=== PATIENT | male | born 1970 | race Caucasian/White ===

== ENCOUNTER 2018-01-02 05:42 | Observation (INO) | payer OTHER ==
[2018-01-02 06:30] LABS: ABS Basophils 0.1 10^3/ul (0-0.2); ABS Eosinophils 0 10^3/ul (0-0.6); ABS Lymphocytes 1.1 10^3/ul (1.0-4.8); ABS Neutrophils 15.2 10^3/ul (1.5-7.7); ABS Nucleated RBC 0 10^3/ul; Eosinophil % 0.1 % (0-6); Hematocrit 48 % (42-52); Hemoglobin 16.6 g/dl (14.0-18.0); Lymphocyte % 6.5 % (25-47); Mean Corpuscular HGB Conc 35 g/dl (31-36); Mean Corpuscular Hemoglobin 30 pg (27-31); Mean Corpuscular Volume 87 fL (80-94); Mean Platelet Volume 7.9 um3 (7.4-10.4); Nucleated Red Blood Cells % 0.1; Platelet Count 337 10^3/ul (150-450); Red Blood Count 5.48 10^6/ul (4.0-5.4); Red Cell Distribution Width 14 % (10.5-15); White Blood Count 17.4 10^3/ul (3.5-10.8)
[2018-01-02 06:45] LABS: EGFR Non-African American 85.3 (>60)
[2018-01-02] MEDS ORDERED: NS 0.9% 1000 ML* 1,000 ML IV ONE (06:47)
[2018-01-02] MEDS ORDERED: Ondansetron INJ* 2 MG/ML VIAL IV ONE (06:48)
[2018-01-02] MEDS ORDERED: Morphine VIAL* 4 MG/ML VIAL (1 ml vial) IV ONE (06:48)
[2018-01-02] MEDS: NS 0.9% 1000 ML* 2,000 ML IV ONE ×2 (06:54→08:59)
--- NOTE | 2018-01-02 07:00 | ED ---
Abdominal Pain/Male - HPI Summary HPI Summary: Patient presents with right side abdominal pain which started yesterday as a "stitch". This progressed to a more significant pain into the evening and through the night which brought him here today. Denies nausea, vomiting, diarrhea, fever, chills, bloating. Admits he's been urinating more than usual however denies dysuria, urgency, flank pain. No known history of urinary tract infection or stones. Had his appendix out in October and has had no digestive issues since. He does still have his appendix. Denies trauma to the area. Has not tried anything for pain prior to arrival. She has18 Last meal 1800 last night and 4oz coke on way here. Sleep apnea- wears CPAP No dental work S/p cholecystectomy as of 10/2107 at [facility] - no complications - History of Current Complaint Chief Complaint: EDAbdPain Stated Complaint: ABD PAIN Time Seen by Provider: 01/02/18 06:12 Hx Obtained From: Patient, Family/Family Consultant - Pain Intensity: 10 - Allergies/Home Medications Allergies/Adverse Reactions: Allergies Allergy/AdvReac Type Severity Reaction Status Date / Time No Known Allergies Allergy Verified 08/28/12 06:58 Home Medications: Home Medications Cholecalciferol TAB* [Vitamin D TAB*] 5,000 unit PO DAILY 01/02/18 [History Confirmed 01/02/18] Cyanocobalamin TAB* [Vitamin B12 TAB*] 500 mcg PO DAILY 01/02/18 [History Confirmed 01/02/18] Hydrochlorothiazide TAB* [Hydrodiuril TAB*] 25 mg PO DAILY 01/02/18 [History Confirmed 01/02/18] PMH/Surg Hx/FS Hx/Imm Hx Previously Healthy: Yes Endocrine/Hematology History: Reports: Hx Unexplained Bleeding - hemorrhagic stroke Denies: Hx Anticoagulant Therapy, Hx Diabetes Cardiovascular History: Reports: Hx Hypertension - controlled on meds Denies: Hx Aneurysm, Hx Congestive Heart Failure, Hx Pacemaker/ICD GI History: Reports: Hx Gall Bladder Disease - s/p cholecystectomy Denies: Hx Cirrhosis, Hx Crohn's Disease, Hx Diverticulosis, Hx Gastrointestinal Bleed, Hx Hiatal Hernia, Hx Irritable Bowel, Hx Obstructive Bowel, Hx Ulcer History: Denies: Hx Benign Prostatic Hyperplasia, Hx Kidney Infection, Hx Kidney Stones, Hx Renal Disease Musculoskeletal History: Reports: Hx Back Problems - 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, Hx Orthopedic Injury Sensory History: Denies: Hx Hearing Aid Neurological History: Reports: Hx CVA - hemorrhagic stroke Denies: Hx Dementia, Hx Developmental Delay Psychiatric History: Denies: Hx Panic Disorder - Surgical History Surgery Procedure, Year, and Place: TONSILS, TOE NAIL REMOVED Infectious Disease History: No Infectious Disease History: Denies: Hx Clostridium Difficile, Hx Hepatitis, Hx Human Immunodeficiency Virus (HIV), Hx Shingles, Hx Tuberculosis, Traveled Outside the [place] in Last 30 Days - Family History Known Family History: Positive: None - Social History Lives: With Family Alcohol Use: None Hx Substance Use: No Substance Use Type: Reports: None Hx Tobacco Use: No Smoking Status (MU): Never Smoked Tobacco Review of Systems Constitutional: Negative Eyes: Negative ENT: Negative Cardiovascular: Negative Respiratory: Negative Positive: Abdominal Pain. Negative: Vomiting, Diarrhea, Nausea Positive: frequency. Negative: burning, dysuria, discharge, flank pain, hematuria, incontinence, pain, urgency Musculoskeletal: Negative Skin: Negative Neurological: Negative Psychological: Normal All Other Systems Reviewed And Are Negative: Yes Physical Exam Triage Information Reviewed: Yes Vital Signs On Initial Exam: Initial Vitals Temp Pulse Resp BP Pulse Ox 98.2 F 91 18 146/98 95 01/02/18 05:44 01/02/18 05:44 01/02/18 05:44 01/02/18 05:44 01/02/18 05:44 Vital Signs Reviewed: Yes Appearance: Positive: Pain Distress, Obese Skin: Positive: Warm - mild sweating, Skin Color Reflects Adequate Perfusion Head/Face: Positive: Normal Head/Face Inspection Eyes: Positive: Normal, EOMI, Conjunctiva Clear - anicteric sclera ENT: Positive: Normal ENT inspection, Hearing grossly normal, Pharynx normal - mucosa moist Respiratory/Lung Sounds: Positive: Clear to Auscultation, Breath Sounds Present. Negative: Rales, Rhonchi, Wheezes Cardiovascular: Positive: Normal, RRR, Pulses are Symmetrical in both Upper and Lower Extremities, S1, S2. Negative: Murmur, Rub, Leg Edema Left, Leg Edema Right Abdomen Description: Positive: Distended, Other: - every area of palpation over ab refers pain to Rt side - RLQ is most TTP; (+) Psoas; unable to assess organs d/t body habitus. Negative: CVA Tenderness (R), CVA Tenderness (L) Bowel Sounds: Positive: Present Musculoskeletal: Positive: Normal, Strength/ROM Intact Neurological: Positive: Normal, Sensory/Motor Intact, Alert, Oriented to Person Place, Time, CN Intact II-III Psychiatric: Positive: Normal Diagnostics - Vital Signs Vital Signs Temp Pulse Resp BP Pulse Ox 01/02/18 06:21 26 01/02/18 05:44 98.2 F 91 18 146/98 95 - Laboratory Lab Results: Lab Results 01/02/18 01/02/18 01/02/18 Range/Units 06:08 06:08 06:08 WBC 17.4 H (3.5-10.8) 10^3/ul RBC 5.48 H (4.0-5.4) 10^6/ul Hgb 16.6 (14.0-18.0) g/dl Hct 48 (42-52) % MCV 87 (80-94) fL MCH 30 (27-31) pg MCHC 35 (31-36) g/dl RDW 14 (10.5-15) % Plt Count 337 (150-450) 10^3/ul MPV 7.9 (7.4-10.4) um3 Neut % (Auto) 87.2 H (38-83) % Lymph % (Auto) 6.5 L (25-47) % Granite % (Auto) 5.7 (0-7) % Eos % (Auto) 0.1 (0-6) % Baso % (Auto) 0.5 (0-2) % Absolute Neuts (auto) 15.2 H (1.5-7.7) 10^3/ul Absolute Lymphs (auto) 1.1 (1.0-4.8) 10^3/ul Absolute Monos (auto) 1.0 H (0-0.8) 10^3/ul Absolute Eos (auto) 0 (0-0.6) 10^3/ul Absolute Basos (auto) 0.1 (0-0.2) 10^3/ul Absolute Nucleated RBC 0 10^3/ul Nucleated RBC % 0.1 Sodium 138 L (139-145) mmol/L Potassium 3.8 (3.5-5.0) mmol/L Chloride 101 (101-111) mmol/L Carbon Dioxide 25 (22-32) mmol/L Anion Gap 12 H (2-11) mmol/L BUN 12 (6-24) mg/dL Creatinine 0.94 (0.67-1.17) mg/dL Est GFR ( Amer) 109.7 (>60) Est GFR (Non-Af Amer) 85.3 (>60) BUN/Creatinine Ratio 12.8 (8-20) Glucose 166 H (70-100) mg/dL Lactic Acid 3.0 H* (0.5-2.0) mmol/L Calcium 10.3 (8.6-10.3) mg/dL Total Bilirubin 1.70 H (0.2-1.0) mg/dL AST 34 (13-39) U/L ALT 70 H (7-52) U/L Alkaline Phosphatase 70 (34-104) U/L C-Reactive Protein 41.43 H (< 5.00) mg/L Total Protein 8.3 (6.4-8.9) g/dL Albumin 5.0 (3.2-5.2) g/dL Globulin 3.3 (2-4) g/dL Albumin/Globulin Ratio 1.5 (1-3) Lipase 12 (11.0-82.0) U/L Result Diagrams: 01/02/18 06:08 01/02/18 06:08 Lab Statement: Any lab studies that have been ordered have been reviewed, and results considered in the medical decision making process. Re-Evaluation - Re-Evaluation First Eval Change: Unchanged - brief improvement w/ 4mg morphine - will try dilaudid Second Eval Change: Improved - pt's pain improved w/ dilaudid - continues to have no nausea Abdominal Pain Fem Course/Dx - Course Course Of Treatment: Pt presents with right sided abdominal pain which started as a "stitch yesterday. This pain has progressed until he could no longer take it today. Denies nausea vomiting diarrhea fevers or chills. His white blood cells are elevated at 17, his lactic acid level is elevated at 3, his CRP is elevated. CT scan reveals acute appendicitis without signs of abscess. Patient received 2 rounds of IV pain medication as the first one was short lived - better control with a second. He is receiving 2 L of IV fluids, zosyn and oxygen was placed secondary to his sleep apnea with narcotics on board. Patient aware of diagnosis and plan. Dr. Villagomez aware of case and on his way to see pt - will admit for surgery. Last meal 1800 last night and 4oz coke on way here. Sleep apnea- wears CPAP. No dental work. S/p cholecystectomy as of 2107 - no complications - Diagnoses Provider Diagnoses: Appendicitis Discharge - Sign-Out/Discharge Documenting (check all that apply): Discharge/Admit/Transfer - Discharge Plan Condition: Stable Disposition: ADMITTED TO [facility] - Billing Disposition and Condition Condition: STABLE Disposition: [facility]
[2018-01-02] MEDS ORDERED: HYDROmorphone INJ* 2 MG/ML CARPUJECT SYRINGE IV SLOW PU ONE (07:27)
--- NOTE | 2018-01-02 08:03 | RAD ---
CLINICAL HISTORY: Lower right abdominal pain COMPARISON: None TECHNIQUE: Multiple contiguous axial CT scans were obtained of the abdomen and pelvis, without intravenous contrast enhancement. Coronal and sagittal multiplanar reformations are submitted for review. Oral contrast was not administered. FINDINGS: LUNG BASES: The lung bases are clear. LIVER: The liver is diffusely low in attenuation compared to the spleen. There are no focal hepatic parenchymal masses. The liver measures 19.1 cm in long axis. BILE DUCTS: There is no intrahepatic or extrahepatic biliary dilatation. GALLBLADDER: The gallbladder is not visualized. Surgical clips are noted in the gallbladder fossa. PANCREAS: There is focal fatty atrophy of the head of the pancreas. SPLEEN: Normal in size and appearance. UPPER GI TRACT: Evaluation of the gastrointestinal tract is limited by incomplete gastric distention. The upper GI tract is unremarkable. SMALL BOWEL AND MESENTERY: The small bowel is normal in contour, course, and caliber. There is no obstruction or dilatation. COLON: The colon is normal in contour, course, caliber. There is no pericolonic inflammatory change. There is a tubular, vermiform, hollow viscus that is blind-ending and originates from the cecum consistent with the appendix. This is dilated with stranding of the periappendiceal fat. This measures 1.5 cm in diameter. There is an appendicolith at the base of the appendix. There is no loculated fluid collection to suggest abscess. ADRENALS: Normal bilaterally. KIDNEYS: There is a simple cyst of the midpole of the left kidney. There is no appreciable hydronephrosis or nephrolithiasis. BLADDER: The bladder is smooth in contour. PELVIC ORGANS: The prostate gland is normal. The seminal vesicles are symmetric. AORTA: The aorta is normal. IVC: Unremarkable LYMPH NODES: There is no lymphadenopathy by size criteria. ABDOMINAL WALL: There is a fat-containing inguinal hernia on the left. There is a small fat-containing umbilical hernia. BONES AND SOFT TISSUES: Unremarkable OTHER: None IMPRESSION: 1. ACUTE APPENDICITIS. NO LOCULATED FLUID COLLECTION TO SUGGEST ABSCESS. 2. MILD HEPATOMEGALY WITH FATTY INFILTRATION OF THE LIVER.
[2018-01-02] MEDS ORDERED: Piperacillin/Tazobac ADVAN(*) 3.375 GM in NS 0.9% 100 ML* 100 ML IVPB ONE (08:31)
[2018-01-02] MEDS ORDERED: HYDROmorphone INJ* 2 MG/ML CARPUJECT SYRINGE IV SLOW PU PRN (09:57)
[2018-01-02] MEDS ORDERED: Ondansetron INJ* 2 MG/ML VIAL IV PRN (09:57)
[2018-01-02] MEDS ORDERED: ceFOXitin 2 GM IVPREMIX* 2 GM/50 ML BAG IVPB ONE (09:58)
[2018-01-02] MEDS ORDERED: NS 0.9% 1000 ML* 1,000 ML IV SCH (10:15)
[2018-01-02] MEDS ORDERED: ceFOXitin(*) 2 GM in NS 0.9% 100 ML* 100 ML IVPB ONE (11:00)
--- NOTE | 2018-01-02 13:14 | HP ---
AMENDED REPORT NOW INCLUDES COSIGNER DESIGNATION - ESIGNED BEFORE ADJUSTMENT CC: Cari Og NP, [facility] * PRIORITY ADMISSION HISTORY AND PHYSICAL EXAMINATION: DATE OF ADMISSION: 01/02/18. LOCATION: This patient was admitted through the [facility] and was seen in room 348. This is a priority dictation as the patient will be going to the operating room this afternoon. ATTENDING PROVIDER: Dr. Abhinav Villagomez.* (DICTATED BY ARIANNE BOTELLO NP) CHIEF COMPLAINT: Worsening abdominal pain. HISTORY OF PRESENT ILLNESS: The patient is a 47-year-old male, who had the onset of right-sided abdominal pain around 5 p.m. yesterday, 01/01/18, and he described it as a "stitch." He was unable to sleep and the pain worsened overnight and he awakened his at 5 a.m. to be brought to the emergency department for assessment. He denies any nausea, vomiting, diarrhea, fever, or chills; he had a bowel movement that was formed yesterday, there was no blood. He last ate around supper time yesterday and drank 4 ounces of Coca-Cola at 5 o' clock this morning. In the emergency room, his white blood cell count was elevated at 17.4 with the left shift; lactic acid elevated at 3.0, and CRP elevated at 41.4. CAT scan of the abdomen and pelvis was done, which revealed acute appendicitis with an appendicolith at the base of appendix and no evidence of abscess. At this time, the patient rates his pain at 5 or 6. PAST MEDICAL HISTORY: He is followed at the [facility] by Cari Og NP, and is treated for hypertension; obstructive sleep apnea and he does use CPAP at home; fatty liver; obesity; he reports that he had a massive hemorrhagic stroke in August 2012 and was treated by Dr. Weaver with a adrrel hole with insertion of a left ventricular drain for a right basal ganglia hemorrhage, he was intubated and trach'd at that time; he has chronic neck and back pain and states that he broke his neck in 1992 and has pain from C1 to T1. PAST SURGICAL HISTORY: Laparoscopic cholecystectomy, October 2017; darrel hole with insertion of left ventricular drain for cerebral hemorrhage, 2011, by Dr. Weaver; tracheostomy by Dr. Sharma, 2012; tonsillectomy, age 5. CURRENT MEDICATIONS: 1. HydroDIURIL 25 mg one-half tablet daily in the morning. 2. Metoprolol 25 mg p.o. b.i.d. 3. Amlodipine 10 mg p.o. daily in the evening. 4. Losartan 100 mg p.o. daily in the morning. 5. Clonidine 0.2 mg patch, which he changes weekly on Friday. 6. Vitamin D supplement. 7. Vitamin B12 supplement. He did not take any of his medications this morning. ALLERGIES: No known drug allergies. BENGAY caused skin callaway. FAMILY HISTORY: No known anesthesia complications, bleeding tendencies, or clotting disorders. Father age 69 with heart attack, mother at age 60 with accidental overdose after hip surgery. SOCIAL HISTORY: He is and his accompanies him. He has been on disability since his stroke in 2011; he is a former smoker who quit, June 2011, after smoking a pack of cigarettes a day for 26 years. He rarely drinks alcohol and denies the use of other substances. REVIEW OF SYSTEMS: Constitutional: No fevers or chills. No excessive fatigue. Endocrine: No diabetes or thyroid disease. Respiratory: Obstructive sleep apnea and uses CPAP at home. No chronic cough. Cardiovascular: He is treated for hypertension and has a history of hemorrhagic stroke in 2011. No chest pain or palpitations. Gastrointestinal: No nausea, vomiting, diarrhea, or constipation; he does have history of a fatty liver. Genitourinary: No dysuria. No kidney stones. Musculoskeletal: Chronic neck and back pain with history of broken neck in 1992. Neurologic: Status post cerebral hemorrhage, 2011. No history of seizure activity. No numbness. No focal deficits. He does report some difficulties with short-term memory and if he is extremely tired, he notices that his left leg is weaker. General: Denies any previous anesthesia complications. Denies any history of deep vein thrombosis or pulmonary embolism and has never received a blood transfusion. PHYSICAL EXAMINATION GENERAL SURVEY: The patient is a 47-year-old male, well developed, obese, in no acute distress. VITAL SIGNS: Height 5 feet 11 inches, weight 280 pounds, body mass index approximately 38. Blood pressure 138/84, pulse 76 and regular, respirator rate 20, O2 saturation on 2 L is 96%, temperature 97.9 tympanic. HEENT: Benign. NECK: Supple. No cervical lymphadenopathy. LUNGS: Breath sounds bilaterally clear and equal. HEART: Regular rate and rhythm. No murmurs or rubs appreciated. ABDOMEN: Quiet, large, soft, exquisitely tender in the right lower quadrant. No obvious guarding or rebound tenderness. No obvious masses or organomegaly, but exam is limited by body habitus and by the patient's discomfort. GENITALIA EXAM: Deferred. RECTAL EXAM: Deferred. EXTREMITIES: Full range of motion. Strong hand picture hanger. No edema or skin ulcerations. NEUROLOGIC: Alert and oriented x3. Steady gait. SKIN: Warm, dry, intact. IMPRESSION: Acute appendicitis. PLAN: Laparoscopic appendectomy by Dr. Villagomez this afternoon; NPO; IV fluid resuscitation. He received the dose of IV Zosyn in the emergency department. With his history of obstructive sleep apnea, he will be maintained on 2 L of oxygen and will receive pain medication as needed. TIME SPENT: Sixty minutes with greater than 50% in [id number] history taking and coordination of care. ARIANNE BOTELLO NP [id number]/CPS #: [id number] SOTO
[2018-01-02] MEDS ORDERED: Bupivacaine 0.25% SDV* 30 ML ONE (13:28)
[2018-01-02] MEDS ORDERED: fentaNYL* 50 MCG/ML 2 ML VIAL (100 MCG VIAL) ONE ×2 (13:45)
[2018-01-02] MEDS ORDERED: Midazolam* 1 MG/ML 2 ML VIAL (2 MG) ONE (13:45)
[2018-01-02] MEDS ORDERED: Dexamethasone IV* 4 MG/ML 1 ML (4 MG) ONE (14:08)
[2018-01-02] MEDS ORDERED: Succinylcholine* 20 MG/ML 10 ML VIAL ONE (14:08)
[2018-01-02] MEDS ORDERED: Lidocaine 2% PF * 5 ML VIAL ONE (14:08)
[2018-01-02] MEDS ORDERED: Ondansetron INJ* 2 MG/ML VIAL ONE (14:08)
[2018-01-02] MEDS ORDERED: Propofol* 10 MG/ML 20 ML BTL IV PUSH ONE (14:08)
[2018-01-02] MEDS ORDERED: Phenylephrine IV* 40 MCG/ML 10 ML SYRINGE ONE (14:08)
[2018-01-02] MEDS ORDERED: Rocuronium* 10 MG/ML VIAL ONE (14:15)
[2018-01-02] MEDS ORDERED: oxyCODONE/Acetamin 5/325 MG* TAB PO PRN (15:09)
[2018-01-02] MEDS ORDERED: Naloxone* 0.4 MG/ML 1 ML VIAL IV PRN (15:18)
[2018-01-02] MEDS ORDERED: hydrALAZINE IV* 20 MG/ML VIAL ONE (15:32)
[2018-01-02 16:49] VITALS: BP 130/86
--- NOTE | 2018-01-02 22:20 | OP ---
CC: Abhinav Villagomez MD; [facility]. OPERATIVE REPORT: DATE OF OPERATION: 01/02/18 DATE OF : 66 SURGEON: Abhinav Villagomez MD CAREER DEVELOPMENT ASSOCIATE: None. ANESTHESIOLOGIST: Dr. He. ANESTHESIA: General anesthetic, local infiltration. PRE-OP DIAGNOSIS: Appendicitis. POST-OP DIAGNOSIS: Appendicitis. OPERATIVE PROCEDURE: Laparoscopic appendectomy. COMPLICATIONS: No complications. DRAINS: No drains. PATHOLOGIC SPECIMEN: Appendix. COUNTS: Sponge and instruments count correct. ESTIMATED BLOOD LOSS: 50 mL. DESCRIPTION OF PROCEDURE: The patient was supine on the operating table. After adequate general ane sthetic, compression stockings, Britni Hugger warmer, and intravenous antibiotics, the abdomen was clip ped and prepped with antiseptic and draped in a sterile fashion. Local infiltrative anesthesia was a dministered. The previous umbilical incision was re-entered. Dissection carried down to the fascia, which was entered and a blunt port cannula was placed. Insufflation was carried out with carbon el xide. Additional cannulae, 5-mm left lower quadrant and left mid abdomen were placed through small s tab wounds under direct vision. The appendix was retrocecal and suppurative and little bit stuck in the retroperitoneum. It was painstakingly dissected up. The base of the appendix was divided using an EndoGIA stapler 60-mm robert cartridge and the mesoappendix divided using a lucero cartridge. The appe ndix ruptured during dissection and was all retrieved and placed in the retrieval bag. There was no spillage of any fecalith, the appendix was removed through the umbilical site without difficulty. Th e operative field was well irrigated with 2 L of warm saline solution. Free fluid was suctioned down . Hemostasis was confirmed, the cannulae were removed. The pneumoperitoneum was allowed to escape. The umbilical fascia was closed with 0 Vicryl and skin with 5-0 Vicryl in all cases followed by Ster i-Strips. He tolerated the procedure well, was awakened, extubated, and brought to Recovery in good condition. [id number]/[facility] #: [id number]
--- NOTE | 2018-01-03 03:24 | DS ---
CC: Dr. Villagomez; [facility] DISCHARGE SUMMARY: DATE OF ADMISSION: 01/02/18 DATE OF DISCHARGE: 01/02/18 DATE OF OPERATION/HOSPITALIZATION: 01/02/18 PRINCIPAL ADMITTING DIAGNOSIS: Appendicitis. OPERATIVE PROCEDURE ON THIS ADMISSION: Laparoscopic appendectomy. COMPLICATIONS: None. HOSPITAL COURSE: The patient came to the hospital in the wee hours on the morning of 01/02, was admi tted and taken to the operating room later that day for laparoscopic appendectomy. He had an uncompl icated postoperative course and was discharged home later that evening. He was discharged home with instructions and prescriptions and will follow up in the office in approximately 1 week. [id number]/[facility] #: [id number]
== END 2018-01-02 19:50 | disposition home or self-care (01) ==
LOC: ED 05:42 → OR 08:34 → SSU 09:55
PROVIDERS: ADMIT Surgery; ATTEND Surgery
PROC: 0DTJ4ZZ Resection of Appendix, Percutaneous Endoscopic Approach (ICD-10-PCS; principal; 2018-01-02 14:15)
DX: K35.80 Unspecified acute appendicitis (principal); I10 Essential (primary) hypertension; G47.33 Obstructive sleep apnea (adult) (pediatric); E66.9 Obesity, unspecified; K76.0 Fatty (change of) liver, not elsewhere classified; Z79.899 Other long term (current) drug therapy; Z87.891 Personal history of nicotine dependence; I51.7 Cardiomegaly; R94.31 Abnormal electrocardiogram [ECG] [EKG]
CPT/HCPCS: 36415; 74176; 80053; 83605; 83690; 85025; 86140; 87040; 93005; 96374; 96375; 96376; 99284; G0378; J0330; J0360; J0694; J1100; J1170; J2250; J2270; J2405; J2543; J2704; J3010

== ENCOUNTER 2019-04-04 12:43 | Observation (INO) | payer OTHER ==
[2019-04-04 13:26] LABS: ABS Basophils 0.1 10^3/ul (0-0.2); ABS Lymphocytes 2.4 10^3/ul (1.0-4.8); ABS Monocytes 0.7 10^3/ul (0-0.8); ABS Neutrophils 1.4 10^3/ul (1.5-7.7); Eosinophil % 0.6 %; Hematocrit 38 % (42-52); Hemoglobin 13.3 g/dL (14.0-18.0); Lymphocyte % 52.3 %; Mean Corpuscular HGB Conc 35 g/dL (31-36); Mean Corpuscular Hemoglobin 32 pg (27-31); Mean Corpuscular Volume 90 fL (80-94); Nucleated Red Blood Cells % 0.2; Red Blood Count 4.17 10^6 /uL (4.18-5.48); Red Cell Distribution Width 15 % (10-15); White Blood Count 4.6 10^3/uL (3.5-10.8)
--- NOTE | 2019-04-04 13:30 | ED ---
HPI Chest Pain - HPI Summary HPI Summary: The pt is a 48 yr old male presenting to [facility] c/o pain across the chest beginning yesterday. He states that he was sitting down when he began to feel pain in his chest that is currently radiating to his right shoulder. His pain has been constant since yesterday, and he rates its severity a 6/10. He mentions doing recent yard work, and that he has had difficulty sleeping due to the pain. He was mildly diaphoretic upon arrival. He also reports SOB but denies nausea, vomiting, fever, or edema in the lower extremities. He took antacids at home to alleviate the pain, but they did not help. He also had two ASA this morning. He has Hx of HTN, CVA, and cholecystectomy. No hx of COPD or CHF. He has not traveled recently. - History of Current Complaint Chief Complaint: EDChestPainROMI Time Seen by Provider: 04/04/19 13:11 Hx Obtained From: Patient Onset/Duration: Started Days Ago - yesterday, Still Present Timing: Constant, Lasting Days Initial Severity: Moderate Current Severity: Moderate Pain Intensity: 6 Pain Scale Used: 0-10 Numeric Chest Pain Location: Diffuse Chest Pain Radiates: Yes Chest Pain Radiates To:: Shoulder - Right shoulder Aggravating Factor(s): Nothing Alleviating Factor(s): Nothing - antacids and ASA to no relief Associated Signs and Symptoms: Positive: Chest Pain, Shortness of Breath, Fever. Negative: Nausea, Vomiting, Edema - Allergy/Home Medications Allergies/Adverse Reactions: Allergies Allergy/AdvReac Type Severity Reaction Status Date / Time No Known Allergies Allergy Verified 08/28/12 06:58 PMH/Surg Hx/FS Hx/Imm Hx Endocrine/Hematology History: Reports: Hx Unexplained Bleeding - hemorrhagic stroke Denies: Hx Anticoagulant Therapy, Hx Diabetes Cardiovascular History: Reports: Hx Hypertension - controlled on meds Denies: Hx Aneurysm, Hx Congestive Heart Failure, Hx Pacemaker/ICD GI History: Reports: Hx Gall Bladder Disease - s/p cholecystectomy Denies: Hx Cirrhosis, Hx Crohn's Disease, Hx Diverticulosis, Hx Gastrointestinal Bleed, Hx Hiatal Hernia, Hx Irritable Bowel, Hx Obstructive Bowel, Hx Ulcer History: Denies: Hx Benign Prostatic Hyperplasia, Hx Kidney Infection, Hx Kidney Stones, Hx Renal Disease Musculoskeletal History: Reports: Hx Back Problems - 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, Hx Orthopedic Injury Sensory History: Reports: Hx Contacts or Glasses - reading glasses Denies: Hx Hearing Aid Opthamlomology History: Reports: Hx Contacts or Glasses - reading glasses Neurological History: Reports: Hx CVA - hemorrhagic stroke Denies: Hx Dementia, Hx Developmental Delay Psychiatric History: Denies: Hx Panic Disorder - Surgical History Surgery Procedure, Year, and Place: TONSILS, TOE NAIL REMOVED Hx Anesthesia Reactions: No Infectious Disease History: No Infectious Disease History: Denies: Hx Clostridium Difficile, Hx Hepatitis, Hx Human Immunodeficiency Virus (HIV), Hx Shingles, Hx Tuberculosis, Traveled Outside the [place] in Last 30 Days - Family History Known Family History: Negative: Cardiac Disease, Hypertension, Diabetes - Social History Alcohol Use: Rare Hx Substance Use: No Substance Use Type: Reports: None Hx Tobacco Use: No Smoking Status (MU): Former Smoker Type: Cigarettes Amount Used/How Often: 1PPD Review of Systems Positive: Skin Diaphoresis Positive: Chest Pain - Radiates to the right shoulder. Positive: Shortness Of Breath Negative: Vomiting, Nausea Negative: Edema All Other Systems Reviewed And Are Negative: Yes Physical Exam - Summary Physical Exam Summary: Constitutional: Well-developed, Well-nourished, Alert. (-) Distressed. Obese. Skin: Warm, Dry HENT: Normocephalic; Atraumatic Eyes: Conjunctiva normal Neck: Musculoskeletal ROM normal neck. (-) JVD, (-) Stridor, (-) Nuchal rigidity Cardio: Rhythm regular, rate normal, Heart sounds normal; Intact distal pulses; Radial pulses are 2+ and symmetric. (-) Murmur Pulmonary/Chest wall: Increased bronchial breathing, (-) Respiratory distress, ( -) Wheezes, (-) Rales, Abd: Protuberant, Soft, (-) tenderness, (-) Distension, (-) Guarding, (-) Rebound Musculoskeletal: (-) Edema Lymph: (-) Cervical adenopathy Neuro: Alert, Oriented x3 Psych: Mood and affect Normal Triage Information Reviewed: Yes Vital Signs On Initial Exam: Initial Vitals Temp Pulse Resp BP Pulse Ox 98.4 F 78 20 158/87 98 04/04/19 12:46 04/04/19 12:46 04/04/19 12:46 04/04/19 12:46 04/04/19 12:46 Vital Signs Reviewed: Yes Diagnostics - Vital Signs Vital Signs Temp Pulse Resp BP Pulse Ox 04/04/19 12:46 98.4 F 78 20 158/87 98 - Laboratory Result Diagrams: 04/04/19 13:13 04/04/19 13:13 Lab Statement: Any lab studies that have been ordered have been reviewed, and results considered in the medical decision making process. - Radiology CXR Radiology Interpretation Completed By: Radiologist Summary of Radiographic Findings: Impresssions: No radiological evidence of acute cardiopulmonary disease. ED physician has reviewed this imaging report. - CT Chest/Thorax CTA CT Interpretation Completed By: Radiologist Summary of CT Findings: IMPRESSION: 1. No CT of evidence of pulmonary embolism. 2. There is a very mild degree of groundglass opacification which could be seen in the. setting of mild pulmonary edema. 3. Likely hepatic steatosis. ED Physician has reviewed this imaging report. - EKG 1246 Cardiac Rate: NL - @ 83 BPM. EKG Rhythm: Sinus Rhythm Summary of EKG Findings: Twave inversions in III. No STEMI. Re-Evaluation - Re-Evaluation First Eval Re-Evaluation Time: 16:30 Comment: Patient felt slighty better w nitro. I discussed admission with the patient and his ; they agree with this plan. Plan for tele monitoring. BNP normal Chest Pain Course/Dx - Course Course Of Treatment: ) 48-year-old male with a history of a previous hemorrhagic CVA, hypertension who presents with left-sided chest pain for 2 days. Vital signs notable for hypoxia to 94% on review of records this is not new but has not been addressed via imaging. Chest Pain DDX: The patient is well appearing, with stable vitals. Given the patient's clinical presentation, highest on differential is ACS versus PE. Will check troponin, EKG as well as CT PE. Although less likely, differential also includes the following: -- Pneumothorax: Equal breath sounds, story inconsistent since gradual onset of symptoms. CXR shows no evidence of pneumothorax. Unlikely. --Cardiac tamponade : The history and physical are not concerning for tamponade. No Pulsus Paradoxus , no tachypnea. Unlikely. --Mediastinitis or esophageal rupture: The history is not consistent, as the patient has had no recent history of significant wretching, instrumentation, or mediastinal surgeries. Unlikely. --Aortic dissection: The patient does not describe the classical tearing chest pain radiating into the back, and the CXR does not show mediastinal widening or other signs of aortic dissection. Unlikely. - Diagnoses Provider Diagnoses: Chest pain - Provider Notifications Discussed Care Of Patient With: Nadege Price - hospitalist Time Discussed With Above Provider: 16:30 Instructed by Provider To: Admit As Inpatient - Dr. Price will admit pt to [facility]. Discharge - Sign-Out/Discharge Documenting (check all that apply): Patient Departure - Admit Patient Received Moderate/Deep Sedation with Procedure: No - Discharge Plan Condition: Stable Disposition: ADMITTED TO [facility] Referrals: Cari Og [Primary Care Provider] - - Billing Disposition and Condition Condition: STABLE Disposition: Admitted to [facility] - Attestation Statements Document Initiated by Violeta: Yes Documenting Scribe: [place] Provider For Whom Violeta is Documenting (Include Credential): Dr. Jerod Carter MD Scribe Attestation: I, [place], scribed for Dr. Jerod Carter MD on 04/04/19 at 1832. Scribe Documentation Reviewed: Yes Provider Attestation: The documentation as recorded by the [place] accurately reflects the service I personally performed and the decisions made by me, Dr. Jerod Carter MD Status of Scribe Document: Viewed
[2019-04-04 13:32] LABS: INR 1.05 (0.82-1.09)
[2019-04-04 13:36] LABS: Albumin 4.7 g/dL (3.2-5.2); Albumin/Globulin Ratio 1.6 (1-3); BUN/Creatinine Ratio 16.1 (8-20); Calcium 9.7 mg/dL (8.6-10.3); EGFR African American 104.1 (>60); Potassium 3.8 mmol/L (3.5-5.0); Total Bilirubin 1.8 mg/dL (0.2-1.0); Total Protein 7.7 g/dL (6.4-8.9)
[2019-04-04] MEDS ORDERED: Iohexol 350* (CONTRAST) 500 ML MDV IV ONE (13:44)
[2019-04-04 14:07] LABS: Mean Platelet Volume 8.1 fL (7.4-10.4); Platelet Count 78 10^3/uL (150-450)
[2019-04-04] MEDS ORDERED: Nitroglycerin TAB 0.3 MG* 0.3 MG TAB SL ONE (14:26)
[2019-04-04] MEDS ORDERED: Nitroglycerin TAB 0.4 MG* 0.4 MG TAB ONE (14:57)
[2019-04-04] MEDS ORDERED: Nitroglycerin TAB 0.4 MG* 0.4 MG TAB SL ONE (14:59)
[2019-04-04] MEDS ORDERED: Lidocaine 2% VISCOUS* 15 ML UDC PO ONE (15:46)
[2019-04-04] MEDS ORDERED: Al Hydrox/Mg Hydrox/Simet LIQ* 30 ML UDC ONE (15:49)
[2019-04-04] MEDS ORDERED: Al Hydrox/Mg Hydrox/Simet LIQ* 30 ML UDC PO ONE (15:53)
[2019-04-04] MEDS ORDERED: Morphine 4 MG/ML VIAL (1 ml) 4 MG/ML VIAL IV ONE (16:21)
[2019-04-04 17:15] LABS: C Reactive Protein 71.75 mg/L (<8.01)
[2019-04-04] MEDS ORDERED: Ondansetron INJ* 2 MG/ML VIAL IV PRN (17:15)
[2019-04-04] MEDS ORDERED: Acetaminophen TAB* 325 MG PO PRN (17:15)
[2019-04-04] MEDS ORDERED: Nitroglycerin TAB 0.4 MG* 0.4 MG TAB SL PRN (17:17)
[2019-04-04] MEDS ORDERED: Enoxaparin(*) 40 MG/0.4 ML SYR SUBCUT SCH (18:00)
[2019-04-04] MEDS ORDERED: cloNIDine 0.2 MG PATCH* 0.2 MG/24 HR 7 DAY PATCH TRANSDERM SCH (18:00)
[2019-04-04] MEDS: Losartan TAB* 25 MG PO SCH (19:59)
[2019-04-04] MEDS: Metoprolol Tartrate TAB* 25 MG PO SCH (20:00)
[2019-04-04] MEDS: Morphine INJ* 2 MG/ML 1 ML SYRINGE (TWO MG - NEW SYRINGE VERSION) IV PRN ×2 (20:02→23:04)
--- NOTE | 2019-04-04 21:24 | HP ---
CC: Cari Og NP, [facility] * ADMISSION HISTORY AND PHYSICAL: DATE OF ADMISSION: 04/04/19 PRIMARY CARE PROVIDER: Cari Og NP, at the [facility]. MY ATTENDING WHILE IN THE HOSPITAL: Dr. Nadege Price.* (DICTATED BY TYLER CARNES) CHIEF COMPLAINT: Chest pain x24 hours. HISTORY OF PRESENT ILLNESS: Mr. 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 He had no recent changes in his meds, no recent sick contacts; no fevers or chills. After he was working in the yard yesterday, he went to sit down and suddenly felt pain in the left side of his chest, which he described as aching, initially did not radiate and did not change except for being worse when sitting up, worse with palpation. He did state that it at one point radiated to his right shoulder, but he does not know if this was chronic right shoulder pain that he has related to chronic neck injury. The patient has been compliant with CPAP. The patient has not missed any doses of his medications. The patient's blood pressure has not been out of control. The patient does not feel as if he pulled anything while doing yard work. The patient is usually very active walking approximately a mile and a half when he exercises and then doing work around the yard. The patient has chronic pain, which he rates as a constant 2/10 and sometimes flares up. The patient has never had a workup for secondary hypertension to his knowledge. The patient does not get short of breath with exertion. The patient does not have difficulty breathing lying flat. The patient had an endoscopy 2 years ago for dilation of esophageal stricture. He has not had any other issues with that. The patient does not have issues with reflux. The patient has never had esophageal spasms. The patient sleeps approximately 4 hours a night due to unknown causes. In the emergency department, the patient was given nitroglycerin, which improved the patient's pain a little bit. There is no change in his pain with a GI cocktail and morphine helped his pain slightly. Due to concern for chest pain in a patient with risk factors, we were asked to evaluate the patient for admission to the hospital. PAST MEDICAL HISTORY: Severe hypertension; intracranial hemorrhage, right caudate nucleus; chronic neck pain; obstructive sleep apnea; obesity; borderline hyperlipidemia; esophageal stricture; [place]. PAST SURGICAL HISTORY: Tracheostomy, vasectomy, tonsillectomy, cholecystectomy , appendectomy, ventriculostomy. MEDICATIONS: 1. Hydrochlorothiazide 12.5 mg p.o. daily. 2. Losartan 100 mg p.o. daily. 3. Clonidine 0.2 mg patch every 7 days. 4. Amlodipine 10 mg p.o. daily. 5. Metoprolol 25 mg p.o. b.i.d. 6. Voltaren gel 1% topically 3 to 4 times a day. ALLERGIES: BENGAY. FAMILY HISTORY: The patient's father had hemochromatosis and of an CA at 69. The patient's mother from an accidental overdose. The patient had an uncle who of throat cancer and an uncle who of brain cancer. SOCIAL HISTORY: The patient quit smoking in 2010 after smoking for approximately 27 years. The patient drinks occasional alcohol. The patient denies illicit drug use. The patient is retired. He is a disabled and worked as a [employer]. The patient is and has 3 children. The patient's surrogate decision maker will be his , Lily. REVIEW OF SYSTEMS: A 14-point review of systems was reviewed and is negative except as above in the HPI. 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 VITAL SIGNS: At the time of evaluation, temperature 98.4, pulse rate 73, respiratory rate 26, oxygen saturation 95% on room air, blood pressure 130/84. HEENT: Head: Normocephalic, atraumatic. Sclerae anicteric. No conjunctival injection. Nasal mucosa moist. Oral mucosa moist. No pharyngeal erythema, discharge, or exudate. NECK: Supple, nontender. No lymphadenopathy. No carotid bruits auscultated. No JVD. RESPIRATORY: Clear to auscultation bilaterally. No wheezes, rales, or rhonchi. Good air exchange bilaterally. CARDIAC: Regular rate and rhythm. No clicks, murmurs, gallops, or rubs. Pulses are 2+ in the bilateral dorsalis pedis, posterior tibialis, and radial areas. ABDOMEN: Soft, nontender, nondistended. Bowel sounds present and normoactive in all 4 quadrants. No hepatosplenomegaly. No abdominal bruits auscultated. No hepatojugular reflux. GENITOURINARY: No suprapubic or CVA tenderness. NEURO: Cranial nerves II through XII intact. No focal deficits. Alert and oriented x3. PSYCHIATRIC: Pleasant and cooperative. SKIN: Clean, dry, and intact. No rash. DIAGNOSTIC STUDIES/LAB DATA: White blood cell count 4.6, hemoglobin 13.3, hematocrit 38, platelet count 78. INR 1.05. Sodium 135, potassium 3.8, chloride 99, carbon dioxide 27, anion gap 9, BUN 15, creatinine 0.93, glucose 102, calcium 9.7. Bilirubin 1.8, AST 27, ALT 39, alkaline phosphatase 192. Troponin I 0.00 x2, CRP 71.75, BNP 37. Total protein 7.7, albumin 4.7, globulin 3.0. Studies: EKG shows normal sinus rhythm, possible left atrial enlargement, left ventricular hypertrophy by voltage criteria in aVL, normal R-wave progression, intraventricular conduction delay, T-wave inversion in III, T-wave flattening in aVF. No ST segment elevation or depression. No WA depression. ASSESSMENT AND PLAN: Impression: Mr. Quigley is a 48-year-old male with past medical history significant for uncontrolled hypertension complicated by intracranial hemorrhage in 2011, chronic neck pain, obstructive sleep apnea, and borderline hyperlipidemia, who presents to the emergency department with chest pain for 2 days which is atypical in nature, but given the patient's risk factors, the patient will be admitted for rule out myocardial infarction and risk factor stratification. 1. Chest pain. The patient's chest pain has reassuring features including reproducibility with palpation lying, this time with no troponin elevation, lack of associated symptoms including shortness of breath, nausea, or diaphoresis; however, other features that are not reassuring are radiation to the right shoulder and the patient's metabolic risk factors. The patient will be risk stratified with hemoglobin A1c and a lipid profile. The patient had 2 negative troponins at this point. The patient will have a third troponin drawn. The patient's chest pain may be due to musculoskeletal problem, esophageal spasm, or other pulmonary pathology, though he had a negative CT of the chest, negative chest x-ray. The patient will have an echocardiogram to assess for possible signs of pericarditis or valvular abnormality as well as wall motion abnormality. The patient will have a nuclear medicine stress test in the morning to risk stratify for future myocardial infarction. The patient will be treated with morphine and nitroglycerin at this time for his chest pain. The patient has elevated CRP, which is worrisome for possible pericarditis. 2. Hypertension. The patient has resistant hypertension on 5 medications including diuretic. He has never had a workup for secondary hypertension to his knowledge. The patient will have a cortisol checked in the morning while he is inpatient. It should be considered that the patient should have a followup with an cement mason, bowling ball assembler, or drafter patent for secondary hypertension and use of spironolactone should be considered given his cushingoid appearance. 3. Obstructive sleep apnea. Continue the patient's CPAP inpatient. 4. Thrombocytopenia. The patient's thrombocytopenia is of unclear etiology and new. The patient has a history of elevated liver enzymes. He has an elevated alkaline phosphatase and bilirubin here in the hospital. This is likely due to nonalcoholic steatohepatitis, though this degree of thrombocytopenia is unlikely based on lack of other laboratory abnormality. This will be repeated in the morning to assess for lab error. If it is persistently low, further workup including liver or spleen ultrasound should be considered. The patient will not be given Lovenox if it continues to drop. Hematology consultation should be considered. 5. DVT prophylaxis: SCDs in the setting of thrombocytopenia. 6. FEN: The patient will have a heart-healthy diet without caffeine. No fluids are indicated. The patient will be n.p.o. after midnight for a stress test. TIME SPENT: Approximately 60 minutes was spent on the admission of this patient , 30 of which was spent [id number] with the patient obtaining history and physical and discussing treatment plan. This plan has been discussed with my attending Dr. Nadege Price, and she is in agreement. TYLER CARNES [id number]/[facility] #: [id number] SOTO
[2019-04-05 06:42] LABS: Hematocrit 34 % (42-52); Mean Corpuscular HGB Conc 36 g/dL (31-36); Mean Corpuscular Hemoglobin 32 pg (27-31); Mean Corpuscular Volume 90 fL (80-94); Mean Platelet Volume 8.3 fL (7.4-10.4); Platelet Count 63 10^3/uL (150-450); Red Blood Count 3.76 10^6 /uL (4.18-5.48); Red Cell Distribution Width 15 % (10-15); White Blood Count 3.7 10^3/uL (3.5-10.8)
[2019-04-05 06:53] LABS: BUN/Creatinine Ratio 15.6 (8-20); Calcium 8.5 mg/dL (8.6-10.3); EGFR African American 100.3 (>60); EGFR Non-African American 82.9 (>60); HDL Cholesterol 27.8 mg/dL; Magnesium 2.4 mg/dL (1.9-2.7); Potassium 3.8 mmol/L (3.5-5.0)
--- NOTE | 2019-04-05 09:07 | ECHO ---
*[facility]* [place] [address] Fax #: [phone] Transthoracic Echocardiogram Patient: Eliud Quigley : 1970 Study Date: 04/05/2019 Age: 48 Gender: M HR: 72 bpm Height: 72 in /182.9 cm BSA: 2.48 m^2 Weight: 284.4 lb /129.3 kg BMI: 38.7 kg/m^2 *Machine Molder: * Emma Koo [facility] *Referring Physician: * Denis Woods *Reading Physician: * Shaq Lomeli MD Indications: Chest Pain, unspecified. History: Intracranial hemorrhage. Functional status: Following treatment plan for sleep apnea. Risk factors: Hypertension. Obese. Dyslipidemia. Conclusions Summary: - Left ventricle: Systolic function is normal by visual assessment. The estimated ejection fraction is 55-60%. Wall motion is normal; there are no regional wall motion abnormalities. - Right ventricle: Systolic pressure cannot be accurately determined, but appears to be increased. - Ventricular septum: There is septal flattening of the interventricular septum consistent with RV volume or pressure overload. - Mitral valve: There is trace regurgitation. - Aortic valve: There is no evidence of stenosis. There is no significant regurgitation. - Tricuspid valve: There is physiologic regurgitation. - Pericardium, extracardiac: There is no significant pericardial effusion. - Compared to study of 08/28/12, there is no significant change. Study data: Transthoracic echocardiogram. Procedure: Transthoracic echocardiography was performed. Image quality was fair. The study was technically limited due to body habitus. Complete 2D, spectral Doppler, and color flow Doppler. Location: Bedside. Patient status: Inpatient. Patient room number: 445-1. Rhythm: Normal sinus rhythm. Findings Left ventricle: The cavity size is normal. There is mild to moderate concentric hypertrophy. Systolic function is normal by visual assessment. The estimated ejection fraction is 55-60%. Wall motion is normal; there are no regional wall motion abnormalities. There is no consistent Doppler evidence of clinically significant diastolic dysfunction. Right ventricle: The cavity size is mildly dilated. Wall thickness is mildly increased. The moderator band is in a normal position. Systolic function is normal. Systolic pressure cannot be accurately determined, but appears to be increased. Ventricular septum: There is septal flattening of the interventricular septum consistent with RV volume or pressure overload. Left atrium: The atrium is mildly dilated. Right atrium: The atrium is mildly dilated. Mitral valve: The leaflets are mildly thickened. There is no evidence of stenosis. There is trace regurgitation. Aortic valve: Not well visualized. The valve is trileaflet. The leaflets are normal thickness. There is no evidence of stenosis. There is no significant regurgitation. Tricuspid valve: The leaflets are normal thickness. There is no evidence of stenosis. There is physiologic regurgitation. Pulmonic valve: Not well visualized. The leaflets are normal thickness. There is no evidence of stenosis. There is trace regurgitation. Aorta: Ascending aorta: The ascending aorta is appears normal. The aortic root appears normal. The aortic arch appears normal. Pericardium: A prominent pericardial fat pad is present. There is no significant pericardial effusion. Pulmonary arteries: Not well visualized. Systolic pressure can not be accurately estimated. Systemic veins: Poorly visualized. Inferior vena cava: The vessel is normal in size. There is (>= 50%) respiratory change in the IVC dimension. Measurements Left ventricle Value Ref Right atrium continued Value Ref JORDYN, LAX 5.0 cm 4.2 - 5.8 ML dim, ES, A4C (H) 4.5 cm 2.6 - ESD, LAX 3.3 cm 2.5 - 4.0 4.4 FS, LAX 33 % 25 - 43 SI dim, ES, A4C (H) 5.8 cm 3.4 - PW, ED, LAX (H) 1.3 cm 0.6 - 1.0 5.3 FS 33 % 25 - 43 PW, ED (H) 1.3 cm 0.6 - 1.0 Aortic valve Value Ref E', lat leopoldo, TDI (L) 6.0 cm/sec >=10.0 Leopoldo diam, ED 2.4 cm - ------- E/e', lat leopoldo, 10 Peak v, S 1.2 m/sec ---- ---- TDI VTI, S 23.2 cm -------- E', med leopoldo, TDI (L) 6.5 cm/sec >=7.0 Mean grad, S 2.0 mm Hg - ------- E/e', med leopoldo, 9 Peak grad, S 6.0 mm Hg ---- ---- TDI LVOT/AV, VTI 0.73 -------- E', avg, TDI 6.3 cm/sec ratio E/e', avg, TDI 10 <=14 Mitral valve Value Ref LVOT Value Ref Peak E 0.62 m/sec -------- Peak danika, S 0.84 m/sec Peak A 0.55 m/sec -------- VTI, S 17.0 cm Decel time 162 ms -------- Mean grad, S 1 mm Hg Peak E/A ratio 1.1 -------- Ventricular septum Value Ref Pulmonic valve Value Ref IVS, ED (H) 1.2 cm 0.6 - 1.0 Peak v, S 0.88 m/sec -------- Peak grad, S 3.0 mm Hg -------- Right ventricle Value Ref AW thickness, ED (H) 0.9 cm 0.1 - 0.5 Aortic root Value Ref JORDYN, LAX 3.8 cm Root diam 3.7 cm <4.5 JORDYN minor ax, (H) 4.6 cm 1.9 - 3.5 A4C mid Ascending aorta Value Ref AAo AP diam, S 3.4 cm -------- Left atrium Value Ref AP dim, ES (H) 4.40 cm 3.00 - Aortic arch Value Ref 4.00 Arch diam 2.9 cm -------- ML dim, A4C 5.1 cm SI dim, A4C 6.5 cm Decending aorta Value Ref Vol/bsa, ES, 1-p 25 ml/m^2 12 - 37 Latonia peak danika 0.8 m/sec -------- A4C Vol/bsa, ES, A/L (H) 37 ml/m^2 16 - 34 Inferior vena cava Value Ref Diam 1.9 cm -------- Right atrium Value Ref SI dim, ES (H) 5.8 cm 3.4 - 5.3 Legend: (L) and (H) kaylyn values outside specified reference range. Prepared and electronically signed by Shaq Lomeli MD 04/05/2019 09:07
[2019-04-05 11:27] LABS: ABS Lymphocytes 1.8 10^3/ul (1.0-4.8); ABS Monocytes 0.7 10^3/ul (0-0.8); ABS Neutrophils 1.2 10^3/ul (1.5-7.7); Eosinophil % 0.7 %; Lymphocyte % 48.2 %; Nucleated Red Blood Cells % 0.4
[2019-04-05] MEDS: Cholecalciferol TAB* 1000 UNITS PO SCH (12:45)
[2019-04-05] MEDS: amLODIPine TAB* 5 MG PO SCH (12:45)
[2019-04-05] MEDS: Metoprolol Tartrate TAB* 25 MG PO SCH ×2 (12:45→21:59)
[2019-04-05] MEDS: Multivitamins/Minerals TAB PO SCH (12:45)
[2019-04-05] MEDS: Hydrochlorothiazide TAB* 25 MG PO SCH (12:45)
--- NOTE | 2019-04-05 18:54 | PN ---
Subjective Date of Service: 04/05/19 Interval History: Patient denies any more chest pain. Family History: Unchanged from Admission Social History: Unchanged from Admission Past Medical History: Unchanged from Admission Objective Active Medications: Acetaminophen (Tylenol Tab*) 650 mg PO Q6H PRN PRN Reason: FEVER/PAIN Amlodipine Besylate (Norvasc Tab*) 10 mg PO DAILY [facility] Last Admin: 04/05/19 12:45 Dose: 10 mg Cholecalciferol (Vitamin D Tab*) 5,000 units PO DAILY [facility] Last Admin: 04/05/19 12:45 Dose: 5,000 units Clonidine HCl (Oglifhxp-Ufh-1 0.2 Mg Patch*) 0.2 mg TRANSDERM Q7D [facility] Last Admin: 04/04/19 20:01 Dose: 0.2 mg Cyanocobalamin (Vitamin B12 Tab*) 500 mcg PO EVERY OTHER DAY [facility] Hydrochlorothiazide (Hydrodiuril Tab*) 12.5 mg PO DAILY [facility] Last Admin: 04/05/19 12:45 Dose: 12.5 mg Losartan Potassium (Cozaar Tab*) 100 mg PO DAILY@2100 [facility] Last Admin: 04/04/19 19:59 Dose: 100 mg Metoprolol Tartrate (Lopressor Tab*) 25 mg PO BID [facility] Last Admin: 04/05/19 12:45 Dose: 25 mg Morphine Sulfate (Morphine Inj (Syringe))*) 2 mg IV Q2H PRN PRN Reason: Chest Pain Last Admin: 04/04/19 23:04 Dose: 2 mg Multivitamins/Minerals (Theragran/Minerals Tab*) 1 tab PO DAILY [facility] Last Admin: 04/05/19 12:45 Dose: 1 tab Nitroglycerin (Nitroglycerin Tab 0.4 Mg*) 0.4 mg SL Q5M PRN PRN Reason: ANGINA Ondansetron HCl (Zofran Inj*) 4 mg IV Q6H PRN PRN Reason: NAUSEA Vital Signs - 8 hr 04/05/19 04/05/19 12:49 15:30 Temperature 98.1 F 98.7 F Pulse Rate 96 86 Respiratory 20 16 Rate Blood Pressure 118/80 126/76 (mmHg) O2 Sat by Pulse 94 95 Oximetry Oxygen Devices in Use Now: None Eyes: No Scleral Icterus, PERRLA Neck: NL Appearance and Movements; NL JVP Respiratory: Clear to Auscultation Cardiovascular: NL Sounds; No Murmurs; No JVD, RRR Abdominal: NL Sounds; No Tenderness; No Distention Extremities: No Edema Skin: No Rash or Ulcers Neurological: Alert and Oriented x 3 Result Diagrams: 04/05/19 06:10 04/05/19 06:10 Diagnostic Imaging: NUCLEAR CARDIAC STRESS TEST DOSE: Stress: Technetium 99m tetrofosmin, 25.1 millicuries, injected at 12:02 PM on March Rest: Technetium 99m tetrofosmin, 10.7 millicuries, injected at 7:14 AM on April 05, 2019 Pharmacologic agent: None FINDINGS: CARDIAC MONITORING: Peak heart rate of 160 bpm, 94% of predicted EF: 66%. The end-diastolic volume is 96 mL. TID: 1 MOTION: Normal motion, with normal wall thickening. PERFUSION: There is a fixed defect of the lateral wall towards the apex suggestive of previous infarct. There is no reversibility to suggest ischemia. OTHER: None IMPRESSION: FIXED DEFECT OF THE LATERAL WALL TOWARDS THE APEX SUGGESTIVE OF PREVIOUS INFARCT. NO REVERSIBILITY TO SUGGEST ISCHEMIA. ASSESSMENT: LOW RISK. Based on imaging criteria from ACC/AHA 2002. Guideline Update for the Management of Patient's with Chronic Stable Angina, table 23. Noninvasive Risk Stratification. Transthoracic Echocardiogram Summary: - Left ventricle: Systolic function is normal by visual assessment. The estimated ejection fraction is 55-60%. Wall motion is normal; there are no regional wall motion abnormalities. - Right ventricle: Systolic pressure cannot be accurately determined, but appears to be increased. - Ventricular septum: There is septal flattening of the interventricular septum consistent with RV volume or pressure overload. - Mitral valve: There is trace regurgitation. - Aortic valve: There is no evidence of stenosis. There is no significant regurgitation. - Tricuspid valve: There is physiologic regurgitation. - Pericardium, extracardiac: There is no significant pericardial effusion. - Compared to study of 08/28/12, there is no significant change. Assess/Plan/Problems-Billing Assessment: 48yoM with HTN, CAMRYN here due to Chest Pain. Also noted to have low platelets and elevated blasts. - Patient Problems (1) Chest pain Current Visit: Yes Status: Acute Code(s): R07.9 - CHEST PAIN, UNSPECIFIED SNOMED Code(s): 12208752 Comment: -Stress test normal. -ECHO unchanged compared to older ECHO. (2) Thrombocytopenia Current Visit: Yes Status: Acute Code(s): D69.6 - THROMBOCYTOPENIA, UNSPECIFIED SNOMED Code(s): 869355326 Comment: Also noted to have elevated blast %. Spoke with Dr. Song who suggested to keep him here till AM when [facility] will [facility] possible [facility]. (3) HTN (hypertension) Current Visit: Yes Status: Acute Code(s): I10 - ESSENTIAL (PRIMARY) HYPERTENSION SNOMED Code(s): 90808334 Comment: -Controlled with Amlodipine, Clonidine, HCTZ, Losartan, Metoprolol (4) CAMRYN (obstructive sleep apnea) Current Visit: Yes Status: Acute Code(s): G47.33 - OBSTRUCTIVE SLEEP APNEA ( ADULT) (PEDIATRIC) SNOMED Code(s): 57466687 Comment: -On CPAP. (5) DVT prophylaxis Current Visit: Yes Status: Acute Code(s): Z29.9 - ENCOUNTER FOR PROPHYLACTIC MEASURES, UNSPECIFIED SNOMED Code(s): 027439854 Comment: -SCD due to low platelets. Status and Disposition: Awaiting Hematology evaluation prior to discharge.
[2019-04-05 20:51] LABS: Activated Partial Thrombo Time 32.8 seconds (26.0-38.0)
[2019-04-05 20:55] LABS: C Reactive Protein 92.11 mg/L (<8.01); Uric Acid 7.3 mg/dL (4.4-7.6)
[2019-04-05 21:19] LABS: % Iron Saturation 57 % (15-55); Iron 181 ug/dL (50-212); LDH 287 U/L (140-271); Total Iron Binding Capacity 318 mcg/dL (250-450); Transferrin 227 mg/dL (203-362)
[2019-04-05 21:40] LABS: Ferritin 828.4 ng/mL (24-336)
[2019-04-05] MEDS: Losartan TAB* 25 MG PO SCH (21:59)
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
[2019-04-05] MEDS: Morphine INJ* 2 MG/ML 1 ML SYRINGE (TWO MG - NEW SYRINGE VERSION) IV PRN (22:04)
[2019-04-06] MEDS: Morphine INJ* 2 MG/ML 1 ML SYRINGE (TWO MG - NEW SYRINGE VERSION) IV PRN (05:50)
[2019-04-06 07:08] LABS: Albumin 4.6 g/dL (3.2-5.2); Albumin/Globulin Ratio 1.6 (1-3); BUN/Creatinine Ratio 18.5 (8-20); Calcium 9.2 mg/dL (8.6-10.3); EGFR African American 105.4 (>60); EGFR Non-African American 87.1 (>60); Globulin 2.9 g/dL (2-4); Potassium 3.5 mmol/L (3.5-5.0); Total Bilirubin 1.6 mg/dL (0.2-1.0); Total Protein 7.5 g/dL (6.4-8.9)
[2019-04-06] MEDS: amLODIPine TAB* 5 MG PO SCH (08:36)
[2019-04-06] MEDS: Multivitamins/Minerals TAB PO SCH (08:36)
[2019-04-06] MEDS: Cholecalciferol TAB* 1000 UNITS PO SCH (08:36)
[2019-04-06] MEDS: Hydrochlorothiazide TAB* 25 MG PO SCH (08:36)
[2019-04-06] MEDS: Metoprolol Tartrate TAB* 25 MG PO SCH (08:36)
[2019-04-06 08:43] LABS: Hematocrit 35 % (42-52); Hemoglobin 12.7 g/dL (14.0-18.0); Mean Corpuscular HGB Conc 37 g/dL (31-36); Mean Corpuscular Hemoglobin 33 pg (27-31); Mean Corpuscular Volume 89 fL (80-94); Mean Platelet Volume 8.1 fL (7.4-10.4); Platelet Count 66 10^3/uL (150-450); Red Blood Count 3.87 10^6 /uL (4.18-5.48); Red Cell Distribution Width 16 % (10-15); White Blood Count 3.9 10^3/uL (3.5-10.8)
[2019-04-06] MEDS ORDERED: Cyanocobalamin TAB* 500 MCG PO SCH (09:00)
[2019-04-06 11:20] VITALS: BP 109/70
[2019-04-06] MEDS ORDERED: Lidocaine 2% 10 ML* VIAL INJ ONE (11:36)
--- NOTE | 2019-04-06 12:23 | PROCNOTE ---
Hematology/Oncology Procedure Hematology/Oncology Procedure Note: Bone marrow biopsy Preprocedure Dx: Panctyopenia Informed consent obtained. Time out performed per protocol. Anesthesia 2% lidocaine, approx. 8 mLs, administered with good effect. Bone marrow biopsy performed to left posterior superior iliac crest without obvious complications. Dry tap attempt x2. Minimal blood loss. Pt. tolerated very well. No assist. Postprocedure Dx: Dx: Panctyopenia
--- NOTE | 2019-04-06 21:08 | DS ---
CC: Dr. Og; Dr. Song * DISCHARGE SUMMARY: DATE OF ADMISSION: 04/04/19 DATE OF DISCHARGE: 04/06/19 ATTENDING PHYSICIAN WHILE IN THE HOSPITAL: Dr. Nan Ceballos * (dictated by TYLER Gutierres). PRIMARY CARE PROVIDER: Dr. Og. CONSULTING DIRECTOR EXPERIMENTAL MEDICINE/ONCOLOGIST: Dr. Song. PRIMARY DIAGNOSES: 1. Chest pain, noncardiac. 2. Pancytopenia with presence of blasts. PROCEDURES WHILE IN THE HOSPITAL: Bone marrow biopsy performed by Jessica Pardo NP on 04/06/19. STUDIES WHILE IN THE HOSPITAL: Stress test on 04/05/19 indicating lateral wall fixed defect suggestive of previous infarct and no reversibility, determined low risk. Transthoracic echocardiogram on 04/05/19 with ejection fraction of 55% to 60%. No wall motion abnormalities. Septal flattening of interventricular septum. PERTINENT LAB DATA: Troponins 0.0 x3. Blast cell percent 9.0. HISTORY OF PRESENT ILLNESS/HOSPITAL COURSE: Eliud Quigley is a 48-year-old white male with past medical history significant for hypertension, history of intracranial hemorrhage, obstructive sleep apnea, on CPAP, and hyperlipidemia, who presents to the emergency department on 04/04/19 due to chest pain. Please see admitting history and physical dictated by TYLER Huerta for further details. During his hospital stay, he had negative troponins x3. He never had any EKG changes. His echocardiogram did have some septal flattening and his stress test did demonstrate the possible previous infarct, but was without ischemia indicating that the patient may have previously had an infarction that was undiagnosed; however, is evidently not acute. During his hospital stay, he incidentally was found to have pancytopenia and 9% blast cells. He was seen in consultation by Dr. Song and Heme/Onc team performed bone marrow biopsy to further evaluate this. He was asymptomatic for chest pain on day of discharge. Denies difficulty breathing, dizziness, lightheadedness, fever, chills, abdominal pain, nausea, or vomiting. PHYSICAL EXAM: Middle-aged well-developed, well-nourished white male, sitting upright in the hospital bed, appearing in no acute distress. Head: Normocephalic, atraumatic. Eyes: PERRL. Sclerae anicteric. ENT: Mucous membranes are moist. Neck: Supple without JVD. Cardio: Regular rate and rhythm without murmurs, rubs, or gallops. Lungs: Clear to auscultation throughout. Abdomen: Abdomen is soft, nontender, nondistended. Extremities: No clubbing, cyanosis, or edema. Neuro: The patient is alert and oriented x3. Gait: Normal. No focal deficits. DISCHARGE PLAN: Diet: Regular unrestricted diet. Activity: The patient may return to normal activity as tolerated. The patient should follow up with his primary care provider regarding this hospitalization within 7 to 10 days. The patient has a followup appointment with Dr. Song scheduled for tomorrow and the patient was notified that of this and he will have further followup with Dr. Song regarding this workup for this _ . The patient was advised to return to the emergency department if he again experiences chest pain, if he has associated dizziness, lightheadedness or shortness of breath or if he experiences fever or chills. DISCHARGE MEDICATIONS: Continue home medications: 1. Amlodipine 10 mg p.o. daily. 2. Vitamin B12 500 mcg p.o. every other day. 3. Vitamin D 5000 units p.o. daily. 4. Hydrochlorothiazide 12.5 mg p.o. daily. 5. Metoprolol tartrate 25 mg p.o. b.i.d. 6. Losartan 100 mg p.o. daily. 7. Multivitamin 1 tab p.o. daily. 8. Clonidine patch 0.2 mg transdermal q.7 days. CONDITION ON DISCHARGE: Stable. DISPOSITION: Home. TIME SPENT: Approximately 40 minutes was spent on this discharge, approximately half of this time was spent at the bedside. TYLER GUTIERRES [id number]/CPS #: [id number]
== END 2019-04-06 13:59 | disposition home or self-care (01) ==
LOC: ED 12:43 → MEDTELE 17:15
PROVIDERS: ADMIT Hospitalist; ATTEND Internal Medicine
DX: R07.9 Chest pain, unspecified (principal); D61.818 Other pancytopenia; I10 Essential (primary) hypertension; G47.33 Obstructive sleep apnea (adult) (pediatric); Z86.79 Personal history of other diseases of the circulatory system; R06.02 Shortness of breath; Z86.73 Personal history of transient ischemic attack (TIA), and cerebral infarction without residual deficits; Z87.891 Personal history of nicotine dependence; Z87.19 Personal history of other diseases of the digestive system; E78.5 Hyperlipidemia, unspecified; E66.9 Obesity, unspecified; G89.29 Other chronic pain; M54.2 Cervicalgia; Z79.899 Other long term (current) drug therapy; D69.6 Thrombocytopenia, unspecified; K22.2 Esophageal obstruction; K75.81 Nonalcoholic steatohepatitis (NASH)
CPT/HCPCS: 36415; 38221; 71046; 71275; 78452; 80048; 80053; 80061; 82533; 82607; 82728; 83036; 83540; 83550; 83615; 83735; 83880; 84155; 84165; 84484; 84550; 85025; 85060; 85097; 85379; 85610; 85730; 86140; 93005; 93017; 93306; 96374; 96376; 99205; 99285; A9270-GY; A9502; G0378; J2270; Q9967

== ENCOUNTER 2019-04-09 08:09 | Emergency (ER) | payer OTHER ==
[2019-04-09] MEDS ORDERED: Morphine 4 MG/ML VIAL (1 ml) 4 MG/ML VIAL IV ONE ×3 (08:42→14:56)
[2019-04-09] MEDS ORDERED: Ondansetron INJ* 2 MG/ML VIAL IV ONE (08:43)
[2019-04-09] MEDS ORDERED: NS 0.9% 500 ML* 500 ML IV ONE (08:43)
--- NOTE | 2019-04-09 08:48 | ED ---
Complex/Multi-Sys Presentation - HPI Summary HPI Summary: The patient is a 48 y/o M presenting to [facility] with a chief complaint of generalized pain all over the body last night and worsening this morning. He reports that he was recently diagnosed with leukemia while being admitted to the hospital five days ago, which has left him to experience pain everywhere, and he has attempted to use Tramadol 100mg at 0730 this morning without any relief to his pain. He notes that movement aggravates the pain. The pain is currently rated 10/10 in severity. He additionally c/o diaphoresis and decreased appetite with last full meal a few days ago. He denies any OLVERA, fever, chills, erythema of eyes, sore throat, CP, SOB, cough, diarrhea, abdominal pain , N/V, dysuria, hematuria, edema, rash, dizziness, or lightheadedness. He states he usually uses Voltaren Gel for pain, and he was given Morphine during admission but notes that it didnt work well for him. He saw Dr. Song at [facility]. He was at [facility] yesterday seeing Dr. Gilbert Washington, and he was supposed to start 3-4 weeks of chemo, but there were difficulties with the biopsy yesterday, so he is supposed to return today in order to start the therapy on 04/12. PMHx of HTN, HLD, angina, hemorrhagic CVA, neck injury (uses Tramadol as needed), cholecystectomy. FHx of CAD with OH. Former smoker, occasional EtOH, no substance use. - History Of Current Complaint Chief Complaint: EDGeneral Time Seen by Provider: 04/09/19 08:22 Hx Obtained From: Patient Onset/Duration: Lasting Hours - last night, Still Present, Worse Since - this morning Timing: Constant, Hours Severity Currently: Severe Severity Initially: Moderate Location: Pain At: - generalized Aggravating Factor(s): movement Alleviating Factor(s): Tramadol to no relief Associated Signs And Symptoms: Positive: Decreased Oral Intake, Diaphoresis, Other - NEGATIVE: erythema of eyes, sore throat, hematuria, rash, lightheadedness. Negative: Dizziness, Headache, SOB, Cough, Chest Pain, Edema, Nausea, Vomiting, Diarrhea, Abdominal Pain, Dysuria, Fever - Allergies/Home Medications Allergies/Adverse Reactions: Allergies Allergy/AdvReac Type Severity Reaction Status Date / Time menthol [From [facility]] Allergy Blisters Verified 04/09/19 08:14 methyl salicylate Allergy Blisters Verified 04/09/19 08:14 [From [facility]] Home Medications: Home Medications Allopurinol TAB* [Zyloprim 300 MG TAB*] 300 mg PO DAILY 04/09/19 [History Confirmed 04/09/19] Diclofenac 1% GEL (NF) [Voltaren 1% GEL (NF)] 1 applic TOPICAL SEE INSTRUCTIONS 04/09/19 [History Confirmed 04/09/19] Tramadol HCl [Ultram] 50 - 100 mg PO Q8H PRN 04/09/19 [History Confirmed ] PMH/Surg Hx/FS Hx/Imm Hx Endocrine/Hematology History: Reports: Hx Unexplained Bleeding - hemorrhagic stroke Denies: Hx Anticoagulant Therapy, Hx Diabetes Cardiovascular History: Reports: Hx Angina, Hx Hypercholesterolemia, Hx Hypertension - controlled on meds Denies: Hx Aneurysm, Hx Congestive Heart Failure, Hx Coronary Artery Disease , Hx Myocardial Infarction, Hx Pacemaker/ICD, Hx Valvular Heart Disease Respiratory History: Denies: Hx Asthma, Hx Chronic Obstructive Pulmonary Disease (COPD) GI History: Reports: Hx Gall Bladder Disease - s/p cholecystectomy Denies: Hx Cirrhosis, Hx Crohn's Disease, Hx Diverticulosis, Hx Gastrointestinal Bleed, Hx Hiatal Hernia, Hx Irritable Bowel, Hx Obstructive Bowel, Hx Ulcer History: Denies: Hx Benign Prostatic Hyperplasia, Hx Chronic Renal Failure, Hx Kidney Infection, Hx Kidney Stones, Hx Renal Disease Musculoskeletal History: Reports: Hx Back Problems - 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, Hx Orthopedic Injury Sensory History: Reports: Hx Contacts or Glasses - Reading Denies: Hx Hearing Aid Opthamlomology History: Reports: Hx Contacts or Glasses - Reading Neurological History: Reports: Hx CVA - hemorrhagic stroke Denies: Hx Dementia, Hx Developmental Delay Psychiatric History: Denies: Hx Panic Disorder - Surgical History Surgery Procedure, Year, and Place: TONSILS, TOE NAIL REMOVED Hx Anesthesia Reactions: No Infectious Disease History: No Infectious Disease History: Denies: Hx Clostridium Difficile, Hx Hepatitis, Hx Human Immunodeficiency Virus (HIV), Hx Shingles, Hx Tuberculosis, Traveled Outside the [place] in Last 30 Days - Family History Known Family History: Negative: Cardiac Disease, Hypertension, Diabetes - Social History Alcohol Use: Occasionally Hx Substance Use: No Substance Use Type: Reports: None Hx Tobacco Use: No Smoking Status (MU): Former Smoker Type: Cigarettes Amount Used/How Often: 1PPD Review of Systems Positive: Skin Diaphoresis. Negative: Fever, Chills Negative: Erythema Negative: Sore Throat Negative: Chest Pain Negative: Shortness Of Breath, Cough Positive: Other - decreased appetite. Negative: Abdominal Pain, Vomiting, Diarrhea, Nausea Negative: dysuria, hematuria Positive: Myalgia - all over body, not localized. Negative: Edema Negative: Rash Neurological: Other - NEGATIVE: dizziness, lightheadedness Negative: Headache All Other Systems Reviewed And Are Negative: Yes Physical Exam - Summary Physical Exam Summary: Constitutional: Well-developed, Well-nourished, Alert. Hyperalgesic even to light touch, (-) Distressed Skin: Diaphoretic, Warm HENT: Normocephalic; Atraumatic Eyes: Conjunctiva normal Neck: Musculoskeletal ROM normal neck. (-) JVD, (-) Stridor, (-) Tracheal deviation Cardio: Rhythm regular, rate normal, Heart sounds normal; Intact distal pulses; The pedal pulses are 2+ and symmetric. Radial pulses are 2+ and symmetric. (-) Murmur Pulmonary/Chest wall: Effort normal. (-) Respiratory distress, (-) Wheezes, (-) Rales Abd: Soft, (-) tenderness, (-) Distension, (-) Guarding, (-) Rebound Musculoskeletal: No joint effusions, (-) Edema Lymph: (-) Cervical adenopathy Neuro: Alert, Oriented x3 Psych: Mood and affect Normal Triage Information Reviewed: Yes Vital Signs On Initial Exam: Initial Vitals Temp Pulse Resp BP Pulse Ox 99.1 F 80 20 116/90 97 04/09/19 08:10 04/09/19 08:10 04/09/19 08:10 04/09/19 08:10 04/09/19 08:10 Vital Signs Reviewed: Yes Diagnostics - Vital Signs Vital Signs Temp Pulse Resp BP Pulse Ox 04/09/19 08:10 99.1 F 80 20 116/90 97 - Laboratory Result Diagrams: 04/09/19 08:38 04/09/19 08:38 Lab Statement: Any lab studies that have been ordered have been reviewed, and results considered in the medical decision making process. - Ultrasound Gallbladder US Ultrasound Interpretation Completed By: Radiologist Summary of Ultrasound Findings: Impression: Hepatomegaly with fatty infiltration of the liver. ED physician has reviewed this radiology report. - EKG 0843 Cardiac Rate: NL - 74 bpm EKG Rhythm: Sinus Rhythm Summary of EKG Findings: NSR at 74 bpm. No STEMI. Re-Evaluation - Re-Evaluation First Eval Re-Evaluation Time: 11:40 Comment: We disucssed results thus far and consulation with Dr. Song. Second Eval Re-Evaluation Time: 13:00 Comment: Patient is agreeable to transfer. Complex Multi-Symp Course/Dx Course Of Treatment: Patient is a 48 y/o M who was recently dx leukemia with cc of severe generalized pain all over the body without any localization starting last night but worsening this morning without relief using Tramadol at 0730 today. Additionally is diaphoretic and has a decreased appetite, but denies any OLVERA, fever, CP, N/V, or diarrhea. Had a consultation with Dr. Washington, oncology at [facility], yesterday, but was unable to get biopsy for starting chemo in a few days, so he has another appt today. Has seen Dr. Song at [facility] during recent admission. Upon physical exam, the patient exhibits diaphoresis, hyperalgesia even to light touch, and there are no joint effusions. In the ED course, the patient was administered Ns, Zofran and Morphine 16mg IV total for pain. Blood work reveals RBCs of 3.46, Hgb of 11.1, Hct of 31, MCH of 32, RDW of 16, plt count of 53, chloride of 99, glucose of 143, total bilirubin of 2.20 , and alkaline phosphatase of 321. Critical value of blast cells % of 9.0. UA is within normal limits. EKG at 0843 reveals NSR at 74 bpm without acute changes. Gallbladder ultrasound impression reveals hepatomegaly with fatty infiltration of the liver. I spoke with Dr. Song, oncology, to discuss my concern for blast crisis, and he reports that either he or Dr. Avila will come see the patient in the ED. At 1230, Dr. Song recommends transfer of the patient to see Dr. Washington at [facility]. Transfer initiated at 1300. At 1400, I discussed the patient's case with Dr. Washington, and he accepts the patient for ED to floor transfer. Patient agrees with this plan. He is diagnosed with blast crisis. 45 minutes CCT. 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 Song and I discussed the patient's case with my conern for blast crisis; he or Dr. Avila will come see the patient in the ED. At 1230, Dr. Song recommends transfer of the patient. Transfer initiated at 1300. At 1400, I discussed the patient's case with Dr. Washington, and he accepts the patient for ED to floor transfer. Reason For Transfer: Patient not appropriate for [facility]. - Critical Care Time Critical Care Time: 30-74 min - 45 minutes Discharge - Sign-Out/Discharge Documenting (check all that apply): Patient Departure - Patient is accepted for transfer to [facility] by Dr. Washington. Patient Received Moderate/Deep Sedation with Procedure: No - Discharge Plan Condition: Stable Disposition: TRANS HIGHER LVL OF CARE FAC Referrals: Cari Og [Primary Care Provider] - - Billing Disposition and Condition Condition: STABLE Disposition: Trans Higher Lvl of Care Fac - Attestation Statements Document Initiated by Scribe: Yes Documenting Scribe: Christen Beck Provider For Whom Violeta is Documenting (Include Credential): Dr. Donald Alston MD Scribe Attestation: Christen Agarwal scribed for Dr. Donald Alston MD on 04/09/19 at 1447. Scribe Documentation Reviewed: Yes Provider Attestation: The documentation as recorded by the Christen henson accurately reflects the service I personally performed and the decisions made by me, Dr. Donald Alston MD Status of Scribe Document: Viewed
[2019-04-09 08:59] LABS: Hematocrit 31 % (42-52); Hemoglobin 11.1 g/dL (14.0-18.0); Mean Corpuscular HGB Conc 36 g/dL (31-36); Mean Corpuscular Hemoglobin 32 pg (27-31); Mean Corpuscular Volume 90 fL (80-94); Mean Platelet Volume 8.2 fL (7.4-10.4); Platelet Count 53 10^3/uL (150-450); Red Blood Count 3.46 10^6 /uL (4.18-5.48); Red Cell Distribution Width 16 % (10-15); White Blood Count 4.1 10^3/uL (3.5-10.8)
[2019-04-09 09:03] LABS: Albumin 4.3 g/dL (3.2-5.2); Magnesium 2.3 mg/dL (1.9-2.7); Potassium 3.7 mmol/L (3.5-5.0); Total Bilirubin 2.2 mg/dL (0.2-1.0)
[2019-04-09 09:09] LABS: Albumin/Globulin Ratio 1.3 (1-3); EGFR African American 95.7 (>60); EGFR Non-African American 79.1 (>60); Globulin 3.2 g/dL (2-4); Total Protein 7.5 g/dL (6.4-8.9)
[2019-04-09 09:10] LABS: Troponin I 0.01 ng/mL (<0.04)
--- OUTSIDE RECORDS SUMMARY | 2019-04-09 09:16 | XMS REPORT | Continuity of Care Document ---
:1970 External Reference #:[id number] Author Name Kayley Shabazz Care Team Providers Name Role Phone [facility] Primary Care Physician Unavailable Payers Date Identification Numbers Payment Provider Subscriber Policy Number: [id number] Va/ Non Va Care Eliud Quigley PayID: [id number] [address] [address] [place] [address] Problems Active Problems Provider Date Postsurgical Status Other Wild Weaver M.D. Onset: 07/09/2013 Obstructive hydrocephalus Wild Weaver M.D. Onset: 07/09/2013 Cerebral hemorrhage Wild Weaver M.D. Onset: 07/09/2013 Social History Type Date Description Comments Sex Unknown Tobacco Use Start: Unknown End: Unknown Patient is a former smoker Smoking Status Reviewed: 01/12/18 Patient is a former smoker Allergies, Adverse Reactions, Alerts Description No Known Drug Allergies Medications Active Medications SIG Qnty Indications Ordering Date Provider Amlodipine Besylate 1 po qd Unknown 10mg Tablets Clonidine HCL one to skin q 4units Unknown 0.2mg/24HR Patches week. Weekly Metoprolol Succinate ER 1/2 po daily Unknown 50mg Tablets ER 24HR Hydrochlorothiazide 1 by mouth Unknown 25mg Tablets every day History Medications Lisinopril/Hydrochlorothiazide 1 po qd 90tabs Unknown - Unknown 20-25mg Tablets Vital Signs Date Vital Result Comment 01/12/2018 9:39am Height 71.75 inches 5'11.75" Weight 280.00 lb Heart Rate 72 /min BP Systolic 140 mmHg BP Diastolic 90 mmHg Respiratory Rate 18 /min Body Temperature 97.9 F BMI (Body Mass Index) 38.2 kg/m2 07/09/2013 10:43am Height 72 inches 6'0" Weight 250.00 lb BP Systolic 142 mmHg BP Diastolic 94 mmHg Pain Level 1 neck BMI (Body Mass Index) 33.9 kg/m2 Results Test Date Facility Test Result H/L Range Note Xray 09/07/2012 [facility] Vaslab Lower Ext <pending> [address] Veins Right [place], [place] [id number] [phone] Xray 09/07/2012 [facility] Chest Single View <pending> [address] [place] [address] [phone] Procedures Date Code Description Status 01/02/2018 92880 Laparoscopy, Surgical, Appendectomy Completed 06/04/2013 86649 EEG Recording Awake & Asleep Completed 06/04/2013 89889 EKG, Interpretation Only Completed 09/11/2012 46207 EEG Recording Awake & Asleep Completed 08/29/2012 72029 Twist Drill Holes For Subdural,Intracerebral Or Completed Ventricular Punct 08/28/2012 46223 EEG Recording Awake & Asleep Completed 08/28/2012 27343 ECHO Transthorasic Realtime 2D W Doppler & Color Flow Hosp Completed 08/28/2012 25803 EKG, Interpretation Only Completed 08/28/2012 45156 Twist Drill Holes For Subdural,Intracerebral Or Completed Ventricular Punct Encounters Type Date Location Provider Dx Diagnosis Office Visit 01/02/2018 [facility] Nita Dinh K35.80 Unspecified acute 7:00a Of Herman Gerber NP appendicitis Office Visit 07/09/2013 [facility] Wild J. 431 Hemorrhage 10:00a Services Of Herman Weaver M.D. Intracerebral 331.4 Hydrocephalus Obstructive V45.89 Postsurgical Status Other Office Visit 06/04/2013 8:16a [facility] Gilbert Rivera, 780.2 Syncope & Assoc,pc [place] Collapse Hospitalists 276.51 Dehydration 584.5 Acute Kidney Failure With Lesion Of Tubular Necrosis Office Visit 06/03/2013 8:16a [facility] Princess Hopkins, 780.2 Syncope & Assoc,harinder Floyd Collapse Hospitalists 401.9 Hypertension Unspec 276.51 Dehydration 584.5 Acute Kidney Failure With Lesion Of Tubular Necrosis Office Visit 12/16/2012 2:40p [facility] Wild Raymond 432.1 Hemorrhage Services Of Herman Weaver M.D. Subdural Office Visit 10/19/2012 10:00a [facility] Wild Raymond 432.1 Hemorrhage Services Of Herman Weaver M.D. Subdural 432.1 Hemorrhage Subdural Office Visit 09/16/2012 10:49a [facility] Runlaya Raya M. 431 Hemorrhage Assoc,pc Evin, D.O. Intracerebral Hospitalists 401.9 Hypertension Unspec 780.97 Altered Mental Status 276.1 Hyposmolality & Or Hyponatremia Office Visit 09/15/2012 10:48a [facility] Runlaya Hogan Elver M. 431 Hemorrhage Assoc,pc Evin, D.O. Intracerebral Hospitalists 401.9 Hypertension Unspec 780.97 Altered Mental Status 276.1 Hyposmolality & Or Hyponatremia Office Visit 09/14/2012 10:45a [facility] Runlaya Moon 431 Hemorrhage Assoc,pc Evin, D.O. Intracerebral Hospitalists 401.9 Hypertension Unspec 780.97 Altered Mental Status 276.1 Hyposmolality & Or Hyponatremia Office Visit 09/13/2012 10:45a [place] [facility] Samira Willingham, 780.97 Altered Mental Assoc,pc D.O. Status Hospitalists 401.9 Hypertension Unspec 431 Hemorrhage Intracerebral Office Visit 09/12/2012 10:44a [facility] Samira Willingham, 780.97 Altered Mental Assoc,pc D.O. Status Hospitalists 276.1 Hyposmolality & Or Hyponatremia 401.9 Hypertension Unspec 431 Hemorrhage Intracerebral Office Visit 09/11/2012 10:44a [place] [facility] Samira Willingham, 780.97 Altered Mental Assoc,pc D.O. Status Hospitalists 276.1 Hyposmolality & Or Hyponatremia 401.9 Hypertension Unspec 431 Hemorrhage Intracerebral Office Visit 09/10/2012 10:44a [place] [facility] Samira Willingham, 431 Hemorrhage Assoc,pc D.O. Intracerebral Hospitalists 780.97 Altered Mental Status 401.9 Hypertension Unspec Office Visit 09/09/2012 10:43a [place] [facility] Samira Willingham, 431 Hemorrhage Assoc,pc D.O. Intracerebral Hospitalists 401.9 Hypertension Unspec Office Visit 09/08/2012 10:43a [facility] Samira Willingham, 431 Hemorrhage Assoc,pc D.O. Intracerebral Hospitalists 401.9 Hypertension Unspec 799.23 Impulsiveness Office Visit 09/07/2012 10:42a [facility] Michael Willingham, 431 Hemorrhage Assoc,pc D.O. Intracerebral Hospitalists 401.0 Hypertension Malignant Office Visit 09/06/2012 10:42a [facility] aJreth Ornelas, 431 Hemorrhage Assoc,pc M.D. Intracerebral Hospitalists 401.0 Hypertension Malignant Office Visit 09/05/2012 10:42a [facility] Jareth Ornelas, 431 Hemorrhage Assoc,pc M.D. Intracerebral Hospitalists 401.0 Hypertension Malignant Office Visit 09/04/2012 10:41a [facility] Jareth Ornelas, 431 Hemorrhage Assoc,pc M.D. Intracerebral Hospitalists 401.0 Hypertension Malignant 995.91 Sepsis Office Visit 09/03/2012 10:41a [facility] Jareth Ornelas, 431 Hemorrhage Assoc,pc M.D. Intracerebral Hospitalists 401.0 Hypertension Malignant 995.91 Sepsis Office Visit 09/02/2012 10:40a [facility] Jareth Ornelas, 431 Hemorrhage Assoc,pc M.D. Intracerebral Hospitalists 995.91 Sepsis 401.0 Hypertension Malignant Office Visit 09/01/2012 9:42a [facility] Jareth Ornelas, 431 Hemorrhage Assoc,pc M.D. Intracerebral Hospitalists 995.91 Sepsis 401.0 Hypertension Malignant Office Visit 08/31/2012 10:40a [facility] Jareth Ornelas, 431 Hemorrhage Assoc,pc M.D. Intracerebral Hospitalists 401.0 Hypertension Malignant Office Visit 08/30/2012 10:39a [facility] Jareth Ornelas, 431 Hemorrhage Assoc,pc M.D. Intracerebral Hospitalists 401.0 Hypertension Malignant Office Visit 08/29/2012 10:39a [facility] Michael Fragosonon, 401.0 Hypertension Assoc,pc D.O. Malignant Hospitalists 305.92 Drug Abuse Other Mixed Or Unspec Episodic 799.23 Impulsiveness Office Visit 08/28/2012 10:37a [facility] Michael Willingham, 431 Hemorrhage Assoc,pc D.O. Intracerebral Hospitalists 401.0 Hypertension Malignant 787.01 Nausea W/ Vomiting 305.92 Drug Abuse Other Mixed Or Unspec Episodic Office Visit 08/28/2012 10:09a [facility] Bret Winn 431 Hemorrhage Services Of Herman Foss M.D. Intracerebral Plan of Treatment 01/12/2018 - Juan Lyon, PAK35.80 Unspecified acute appendicitisFollow up:As needed
[2019-04-09 09:36] LABS: TSH (Thyroid Stimulating Horm) 2.31 mcIU/mL (0.34-5.60)
[2019-04-09] MEDS ORDERED: NS 0.9% 1000 ML** 1,000 ML IV ONE ×2 (11:31→14:57)
[2019-04-09 13:53] LABS: Urine Appearance Clear; Urine Bilirubin Negative (Negative); Urine Blood Negative (Negative); Urine Color Amber; Urine Glucose Negative (Negative); Urine Ketones Negative (Negative); Urine Nitrite Negative (Negative); Urine Protein Negative (Negative); Urine Specific Gravity 1.021 (1.010-1.030); Urine Urobilinogen Negative (Negative)
[2019-04-09 16:00] VITALS: BP 117/81
== END 2019-04-09 16:01 | disposition short-term general hospital (02) ==
LOC: ED 08:09
DX: C92.10 Chronic myeloid leukemia, BCR/ABL-positive, not having achieved remission (principal); I10 Essential (primary) hypertension; E78.00 Pure hypercholesterolemia, unspecified; I20.9 Angina pectoris, unspecified; Z79.899 Other long term (current) drug therapy; Z88.8 Allergy status to other drugs, medicaments and biological substances; Z87.891 Personal history of nicotine dependence; K76.0 Fatty (change of) liver, not elsewhere classified; R16.0 Hepatomegaly, not elsewhere classified
CPT/HCPCS: 36415; 76705; 80053; 81003; 83605; 83735; 84443; 84484; 85025; 85060; 93005; 96361; 96374; 96375; 96376; 99284; J2270; J2405

== ENCOUNTER 2019-06-06 18:05 | Inpatient (IN) | payer OTHER ==
[2019-06-06] MEDS ORDERED: Cefepime(*) 2 GM in NS 0.9% 50 ML* 50 ML IVPB ONE (19:25)
[2019-06-06] MEDS ORDERED: NS 0.9% IV ONE (19:30)
--- NOTE | 2019-06-06 19:36 | ED ---
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 Pt is currently on chemotherapy and felt fatigued and tired today. Also noted to be febrile to 100.7 at home. Furthermore, complains of low back pain radiating to the legs when he woke up this morning. Pt states he started feeling crummy today. The patient rates the pain 5/10 in severity, states he has had similar pain in past. No falls. Patient also reports diarrhea. Patient denies cough, ABD pain. Pt ambulates with a cane. 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 Negative: Cough, Abdominal Pain - Allergies/Home Medications Allergies/Adverse Reactions: Allergies Allergy/AdvReac Type Severity Reaction Status Date / Time menthol [From [facility]] Allergy Blisters Verified 06/06/19 18:36 methyl salicylate Allergy Blisters Verified 06/06/19 18:36 [From [facility]] Home Medications: Home Medications Acyclovir [Zovirax] 400 mg PO BID 06/06/19 [History Confirmed 06/06/19] Ciprofloxacin TAB* [Cipro 500 MG TAB*] 500 mg PO BID 06/06/19 [History Confirmed 06/06/19] Tamsulosin HCl 0.4 mg PO DAILY 06/06/19 [History Confirmed 06/06/19] PMH/Surg Hx/FS Hx/Imm Hx Previously Healthy: No Endocrine/Hematology History: Reports: Hx Unexplained Bleeding - hemorrhagic stroke Denies: Hx Anticoagulant Therapy, Hx Diabetes Cardiovascular History: Reports: Hx Angina, Hx Hypercholesterolemia, Hx Hypertension - controlled on meds Denies: Hx Aneurysm, Hx Congestive Heart Failure, Hx Coronary Artery Disease , Hx Myocardial Infarction, Hx Pacemaker/ICD, Hx Valvular Heart Disease Respiratory History: Denies: Hx Asthma, Hx Chronic Obstructive Pulmonary Disease (COPD) GI History: Reports: Hx Gall Bladder Disease - s/p cholecystectomy Denies: Hx Cirrhosis, Hx Crohn's Disease, Hx Diverticulosis, Hx Gastrointestinal Bleed, Hx Hiatal Hernia, Hx Irritable Bowel, Hx Obstructive Bowel, Hx Ulcer History: Denies: Hx Benign Prostatic Hyperplasia, Hx Chronic Renal Failure, Hx Kidney Infection, Hx Kidney Stones, Hx Renal Disease Musculoskeletal History: Reports: Hx Back Problems - 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, Hx Orthopedic Injury Sensory History: Reports: Hx Contacts or Glasses - Reading Denies: Hx Hearing Aid Opthamlomology History: Reports: Hx Contacts or Glasses - Reading Neurological History: Reports: Hx CVA - hemorrhagic stroke Denies: Hx Dementia, Hx Developmental Delay Psychiatric History: Denies: Hx Panic Disorder - Surgical History Surgical History: Yes Surgery Procedure, Year, and Place: TONSILS, TOE NAIL REMOVED Hx Anesthesia Reactions: No Infectious Disease History: No Infectious Disease History: Denies: Hx Clostridium Difficile, Hx Hepatitis, Hx Human Immunodeficiency Virus (HIV), Hx Shingles, Hx Tuberculosis, Traveled Outside the [place] in Last 30 Days - Family History Known Family History: Positive: None Negative: Cardiac Disease, Hypertension, Diabetes - Social History Alcohol Use: None Hx Substance Use: No Substance Use Type: Reports: None Hx Tobacco Use: No Smoking Status (MU): Former Smoker Type: Cigarettes Amount Used/How Often: 1PPD Review of Systems Positive: Fever Negative: Cough Positive: Diarrhea. Negative: Abdominal Pain Musculoskeletal: Other - positive - low back pain radiating to the legs All Other Systems Reviewed And Are Negative: Yes Physical Exam - Summary Physical Exam Summary: Constitutional: Midlly ill appearing, Well-developed, Well-nourished, Alert. (- ) Distressed Skin: Warm, Dry. Pale HENT: Normocephalic; Atraumatic Eyes: pale conjunctiva Neck: Musculoskeletal ROM normal neck. (-) JVD, (-) Stridor, (-) Nuchal rigidity Cardio: Rhythm regular, rate normal, Heart sounds normal; Intact distal pulses; Radial pulses are 2+ and symmetric. (-) Murmur MSK: pick to right AC Pulmonary/Chest wall: Effort normal. (-) Respiratory distress, (-) Wheezes, (-) Rales Abd: Soft, (-) tenderness, (-) Distension, (-) Guarding, (-) Rebound Musculoskeletal: (-) Edema Lymph: (-) Cervical adenopathy Neuro: Alert, Oriented x3 Psych: Mood and affect Normal Triage Information Reviewed: Yes Vital Signs On Initial Exam: Initial Vitals Temp Pulse Resp BP Pulse Ox 100.9 F 106 20 114/71 100 06/06/19 18:32 06/06/19 18:32 06/06/19 18:32 06/06/19 18:32 06/06/19 18:32 Vital Signs Reviewed: Yes Diagnostics - Vital Signs Vital Signs Temp Pulse Resp BP Pulse Ox 06/06/19 19:25 101.7 F 06/06/19 18:32 100.9 F 106 20 114/71 100 - Laboratory Result Diagrams: 06/07/19 02:11 06/06/19 20:05 Lab Statement: Any lab studies that have been ordered have been reviewed, and results considered in the medical decision making process. - Radiology CXR Radiology Interpretation Completed By: ED Physician Summary of Radiographic Findings: Impression: No acute abnormality. Re-Evaluation - Re-Evaluation First Eval Comment: platelets 4, d/w Dr. Flores will transfuse 1 unit Complex Multi-Symp Course/Dx Course Of Treatment: 48-year-old male history of AML on current chemotherapy, neutropenia presents with fever to 38.3. Suspected source of infection unknown, neutropenic fever. . Plan. Initiated the inpatient sepsis 3 hour provider orderset. IV fluid bolus (30 mL/kg). serum lactate. blood cultures x 2. broad spectrum antibiotics cefepime. transfer to higher level of care, will d/w oncology. CXR neg, no obvious source for infection. Lower back pain but reports a hx of back pain 2/2 sciatica. No trauma, no bowel or bladder incontinence. Imaging deferred at this time. - Diagnoses Provider Diagnoses: Neutropenic fever - Physician Notifications Discussed Care Of Patient With: Cyn Flores Time Discussed With Above Provider: 19:40 Instructed by Provider To: Other - Dr. Flores says to give pt 8 hours of cefipime and says pt should be admitted. At 2019, Dr. Hopkins agrees to admit pt. At 2102, Dr. Flores says to give pt 1 unit of platelets. Discharge ED - Sign-Out/Discharge Documenting (check all that apply): Patient Departure - admit Patient Received Moderate/Deep Sedation with Procedure: No - Discharge Plan Condition: Stable Disposition: ADMITTED TO [facility] - Billing Disposition and Condition Condition: STABLE Disposition: Admitted to [facility] - Attestation Statements Document Initiated by Violeta: Yes Documenting Scribe: Femi Jameson Provider For Whom Violeta is Documenting (Include Credential): Dr. Jerod Carter MD Scribe Attestation: IFemi, scribed for Dr. Jerod Carter MD on 06/07/19 at 0551. Scribe Documentation Reviewed: Yes Provider Attestation: The documentation as recorded by the Femi henson accurately reflects the service I personally performed and the decisions made by me, Dr. Jerod Carter MD Status of Scribe Document: Viewed
[2019-06-06] MEDS ORDERED: Cefepime 2 GM in Dextrose(*) 2 GM/50 ML BAG IV ONE ×2 (19:52→19:53)
[2019-06-06] MEDS ORDERED: NS 0.9% 50 ML* 50 ML ONE (19:52)
[2019-06-06] MEDS ORDERED: Acetaminophen TAB* 325 MG PO ONE (20:12)
[2019-06-06 20:19] LABS: ABS Lymphocytes 0.3 10^3/ul (1.0-4.8); ABS Neutrophils 0.2 10^3/ul (1.5-7.7); Eosinophil % 1.6 %; Hematocrit 20 % (42-52); Hemoglobin 7.2 g/dL (14.0-18.0); Lymphocyte % 57.8 %; Mean Corpuscular HGB Conc 36 g/dL (31-36); Mean Corpuscular Hemoglobin 31 pg (27-31); Mean Corpuscular Volume 86 fL (80-94); Platelet Count 4 10^3/uL (150-450); Red Blood Count 2.31 10^6 /uL (4.18-5.48); Red Cell Distribution Width 16 % (10-15); White Blood Count 0.6 10^3/uL (3.5-10.8)
[2019-06-06 20:26] LABS: Activated Partial Thrombo Time 35.9 seconds (26.0-38.0); INR 1.26 (0.82-1.09)
[2019-06-06 20:33] LABS: Nucleated Red Blood Cells % 1.1; Troponin I 0.01 ng/mL (<0.04)
[2019-06-06 20:40] LABS: Albumin 4.4 g/dL (3.2-5.2); Albumin/Globulin Ratio 1.6 (1-3); BUN/Creatinine Ratio 15.5 (8-20); Calcium 9.3 mg/dL (8.6-10.3); EGFR African American 85.7 (>60); EGFR Non-African American 70.9 (>60); Globulin 2.7 g/dL (2-4); Potassium 3.2 mmol/L (3.5-5.0); Total Bilirubin 1.7 mg/dL (0.2-1.0); Total Protein 7.1 g/dL (6.4-8.9)
[2019-06-06] MEDS ORDERED: traMADol TAB* 50 MG PO PRN (20:51)
[2019-06-06] MEDS ORDERED: Potassium Chlor TAB* 20 MEQ TAB.ER PO ONE (20:58)
[2019-06-06] MEDS ORDERED: cloNIDine 0.2 MG PATCH* 0.2 MG/24 HR 7 DAY PATCH TRANSDERM SCH (21:00)
[2019-06-06] MEDS ORDERED: Acetaminophen TAB* 325 MG PO PRN (22:06)
[2019-06-06] MEDS: Acyclovir* 400 MG TAB PO SCH (22:35)
[2019-06-06] MEDS: Metoprolol Tartrate TAB* 25 MG PO SCH (22:35)
[2019-06-06] MEDS: NS 0.9% 1000 ML** 1,000 ML IV SCH (22:40)
[2019-06-06 23:02] LABS: Urine Appearance Clear; Urine Bacteria Absent (Absent); Urine Bilirubin Negative (Negative); Urine Blood 2+ (Negative); Urine Color Yellow; Urine Glucose Negative (Negative); Urine Ketones Negative (Negative); Urine Nitrite Negative (Negative); Urine Protein 1+(30 mg/dL) (Negative); Urine Red Blood Cell 2+(6-10/hpf) (Absent); Urine Specific Gravity 1.019 (1.010-1.030); Urine Squamous Epithelial Cell Present (Absent); Urine Urobilinogen Negative (Negative); Urine White Blood Cell Trace(0-5/hpf) (Absent)
--- NOTE | 2019-06-07 00:12 | HP ---
CC: Cari Og NP; Dr. Song; Dr. Cyn Flores * HISTORY AND PHYSICAL: DATE OF ADMISSION: 06/06/19 PRIMARY CARE PROVIDER: Cari Og NP CHIEF COMPLAINT: Fever. HISTORY OF PRESENT ILLNESS: Ok Quigley is a 48-year-old male with a history of AML diagnosed early on in March 2019, who had chemotherapy on 05/29/19 and today, presents with fever. He was found to have febrile neutropenia. He has no other complaints. Specifically, he denies shortness of breath, cough, abdominal pain, urinary symptoms, rash. He had been doing well after chemotherapy and his appetite had been fair. He is going to be placed on overnight observation with a diagnosis of febrile neutropenia. PAST MEDICAL HISTORY: 1. History of AML diagnosed in March 2019, currently undergoing chemotherapy. 2. History of hypertension. 3. History of intracranial hemorrhage. 4. History of chronic neck pain. 5. Obstructive sleep apnea. 6. Obesity. 7. Dyslipidemia. 8. History of esophageal stricture. 9. History of nonalcoholic liver disease. PAST SURGICAL HISTORY: 1. Status post tracheostomy in the past. 2. History of vasectomy. 3. History of tonsillectomy. 4. Remote cholecystectomy and appendectomy. 5. Ventriculostomy. CURRENT MEDICATIONS: Includes: 1. Flomax 0.4 mg daily. 2. Ciprofloxacin 500 mg b.i.d. 3. Acyclovir 400 mg b.i.d. 4. Voltaren gel apply on a p.r.n. basis. 5. Amlodipine 10 mg daily. 6. Ultram 50 to 100 mg every 8 hours p.r.n. 7. Lopressor 25 mg b.i.d. 8. Losartan 100 mg daily. 9. Hydrochlorothiazide 12.5 mg daily. 10. Clonidine patch 0.2% every 7 days. ALLERGIES: METHYL SALICYLATE. FAMILY HISTORY: Father with history of hemochromatosis, of an SC at age of 69. Mother from an accidental overdose. There is an uncle with history of throat cancer. SOCIAL HISTORY: The patient quit smoking in 2010 after smoking 27 years. He rarely uses alcohol. Denies any drug use. He is retired and disabled . His surrogate decision maker is his , and he is a full code. REVIEW OF SYSTEMS: Please see history of present illness. All the remaining 12 systems were reviewed with the patient and were otherwise negative. PHYSICAL EXAMINATION GENERAL: The patient is very pleasant 48-year-old male who is in no acute distress. Alert, awake and oriented x3. VITAL SIGNS: Blood pressure of 130/82, heart rate of 103 and regular, respiratory rate 15, oxygen saturation 98% on room air, temperature of 101.7. HEENT: Head: Atraumatic, normocephalic. Eyes: Pupils are equal, and reactive to light and accommodation. Oropharynx is clear. Mucosa is moist. NECK: Supple. No JVD. No bruits bilaterally. RESPIRATORY: Clear to auscultation bilaterally. CARDIOVASCULAR: Regular rate and rhythm. No murmur. ABDOMEN: Slightly distended, soft, nontender. Bowel sounds present in all 4 quadrants. EXTREMITIES: There is no edema. Pulses are +2 bilaterally. No clubbing or cyanosis. NEUROLOGIC EVALUATION: Speech clear. Cranial nerves II through XII grossly intact. Motor strength is 5/5 bilaterally. SKIN: On evaluation of the skin, very scant and minimal petechiae in bilateral antecubital fossae after venipunctures. No other rashes noted. PSYCHIATRIC EVALUATION: Oriented x3 with no evidence of anxiety or depression. LABORATORY DATA: Showed white blood cell count 0.6, hemoglobin 7.2, hematocrit 20, MCV 86, platelets of 4, absolute neutrophil count of 0.2. INR 1.26, PTT of 35.9. Sodium 137, potassium 3.2, chloride 101, carbon dioxide 25, BUN 17, creatinine1.1. Liver function tests showed total bilirubin of 1.7, which is similar to patient's baseline. Alkaline phosphatase of 128. Troponin of 0.01. Portable chest x-ray, read by myself prior to the official radiologist's report shows no evidence of cardiopulmonary abnormalities. ASSESSMENT AND PLAN: 1. Febrile neutropenia. The patient is going to be placed on overnight observation. Treated with cefepime 2 g every 8hours intravenously. The patient already received nearly 3.5 L of intravenous fluid bolus with sepsis protocol since he is septic on admission. At this point, I will continue gentle intravenous fluids throughout the night. 2. For his hypertension, he is currently normotensive and I am going to continue his Lopressor, amlodipine and clonidine, hold hydrochlorothiazide and continue losartan. 3. For DVT prophylaxis, due to patient's low platelets, I cannot utilize sequential compression devices as this would cause bruising and I cannot utilize anticoagulation due to platelets of 4. Ambulation is going to be encouraged. 4. The patient's code status is full and surrogate is his . TIME SPENT: Approximately 55 minutes were spent on the admission of this patient, more than half that time was spent [id number] with the patient during the interview and physical exam. [id number]/[facility] #: [id number] MTDD
[2019-06-07 02:37] LABS: Platelet Count 9 10^3/uL (150-450)
[2019-06-07] MEDS: Cefepime 2 GM in Dextrose(*) 2 GM/50 ML BAG IV SCH ×3 (03:19→21:03)
[2019-06-07 06:04] LABS: ABS Neutrophils 0.8 10^3/ul (1.5-7.7); Hematocrit 18 % (42-52); Hemoglobin 6.5 g/dL (14.0-18.0); Mean Corpuscular HGB Conc 37 g/dL (31-36); Mean Corpuscular Hemoglobin 32 pg (27-31); Mean Corpuscular Volume 86 fL (80-94); Mean Platelet Volume 8.3 fL (7.4-10.4); Platelet Count 9 10^3/uL (150-450); Red Blood Count 2.04 10^6 /uL (4.18-5.48); Red Cell Distribution Width 16 % (10-15); White Blood Count 1.3 10^3/uL (3.5-10.8)
[2019-06-07 06:09] LABS: BUN/Creatinine Ratio 14.7 (8-20); Calcium 8.9 mg/dL (8.6-10.3); EGFR African American 101.5 (>60); EGFR Non-African American 83.9 (>60); Potassium 3.6 mmol/L (3.5-5.0)
[2019-06-07] MEDS: Losartan TAB* 25 MG PO SCH (08:32)
[2019-06-07] MEDS: amLODIPine TAB* 5 MG PO SCH (08:32)
[2019-06-07] MEDS: Acyclovir* 400 MG TAB PO SCH ×2 (08:33→20:51)
[2019-06-07] MEDS: Metoprolol Tartrate TAB* 25 MG PO SCH ×2 (08:33→20:51)
[2019-06-07] MEDS: Tamsulosin CAP* 0.4 MG PO SCH (08:33)
[2019-06-07] MEDS: NS 0.9% 1000 ML** 1,000 ML IV SCH ×3 (08:35→23:18)
--- NOTE | 2019-06-07 09:22 | PN ---
Progress Note - Progress Note Date of Service: 06/07/19 SOAP: Subjective: feels better than yesterday. +fevers at home. denies SOB, chest pain, diarrhea , rash. 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 He did have a rash in early agusut that was pustular and he does not think was related to antibiotics. Objective: Vital Signs Temp Pulse Resp BP Pulse Ox 99.8 F 90 16 105/65 99 06/07/19 08:50 06/07/19 08:30 06/07/19 08:00 06/07/19 08:30 06/07/19 08:30 sitting up in nad perr eomi sore middle of tongue CTA bl s1 s2 nl soft nt +bs no le edema A+O x 3 nonfocal neurological exam no rash Laboratory Results - last 24 hr 06/06/19 06/06/19 06/06/19 20:05 20:05 20:05 WBC 0.6 L RBC 2.31 L Hgb 7.2 L Hct 20 L MCV 86 MCH 31 MCHC 36 RDW 16 H Plt Count 4 L* MPV 11.0 H Neut % (Auto) 34.2 Lymph % (Auto) 57.8 [place] % (Auto) 6.4 Eos % (Auto) 1.6 Baso % (Auto) 0.0 Absolute Neuts (auto) 0.2 L* Absolute Lymphs (auto) 0.3 L Absolute Monos (auto) 0.0 Absolute Eos (auto) 0.0 Absolute Basos (auto) 0.0 Absolute Nucleated RBC 0.0 Immature Gran % Neutrophils % Band Neutrophils % Lymphocytes % Monocytes % Eosinophils % Metamyelocytes % Myelocytes % Blast Cells % Nucleated RBC % 1.1 Abs Neuts (Manual) Abs Lymphs (Manual) Abs Monocytes (Manual) Absolute Eos (Manual) Abs Basophils (Manual) Normal RBC Morphology Anisocytosis INR (Anticoag Therapy) 1.26 H APTT 35.9 Sodium 137 Potassium 3.2 L Chloride 101 Carbon Dioxide 25 Anion Gap 11 BUN 17 Creatinine 1.10 Est GFR ( Amer) 85.7 Est GFR (Non-Af Amer) 70.9 BUN/Creatinine Ratio 15.5 Glucose 139 H Lactic Acid Calcium 9.3 Total Bilirubin 1.70 H AST 15 ALT 27 Alkaline Phosphatase 128 H Troponin I 0.01 Total Protein 7.1 Albumin 4.4 Globulin 2.7 Albumin/Globulin Ratio 1.6 Urine Color Urine Appearance Urine pH Ur Specific [place] Urine Protein Urine Ketones Urine Blood Urine Nitrate Urine Bilirubin Urine Urobilinogen Ur Leukocyte Esterase Urine WBC (Auto) Urine RBC (Auto) Ur Squamous Epith Cells Urine Bacteria Urine Glucose Blood Type Antibody Screen Crossmatch 06/06/19 06/06/19 06/06/19 20:05 20:05 21:24 WBC RBC Hgb Hct MCV MCH MCHC RDW Plt Count MPV Neut % (Auto) Lymph % (Auto) [place] % (Auto) Eos % (Auto) Baso % (Auto) Absolute Neuts (auto) Absolute Lymphs (auto) Absolute Monos (auto) Absolute Eos (auto) Absolute Basos (auto) Absolute Nucleated RBC Immature Gran % Neutrophils % Band Neutrophils % Lymphocytes % Monocytes % Eosinophils % Metamyelocytes % Myelocytes % Blast Cells % Nucleated RBC % Abs Neuts (Manual) Abs Lymphs (Manual) Abs Monocytes (Manual) Absolute Eos (Manual) Abs Basophils (Manual) Normal RBC Morphology Anisocytosis INR (Anticoag Therapy) APTT Sodium Potassium Chloride Carbon Dioxide Anion Gap BUN Creatinine Est GFR ( Amer) Est GFR (Non-Af Amer) BUN/Creatinine Ratio Glucose Lactic Acid 2.0 Calcium Total Bilirubin AST ALT Alkaline Phosphatase Troponin I Total Protein Albumin Globulin Albumin/Globulin Ratio Urine Color Urine Appearance Urine pH Ur Specific [place] Urine Protein Urine Ketones Urine Blood Urine Nitrate Urine Bilirubin Urine Urobilinogen Ur Leukocyte Esterase Urine WBC (Auto) Urine RBC (Auto) Ur Squamous Epith Cells Urine Bacteria Urine Glucose Blood Type O Positive Antibody Screen Crossmatch See Detail 06/06/19 06/06/19 06/07/19 22:43 23:07 02:11 WBC RBC Hgb Hct MCV MCH MCHC RDW Plt Count 9 L* D MPV 8.0 Neut % (Auto) Lymph % (Auto) [place] % (Auto) Eos % (Auto) Baso % (Auto) Absolute Neuts (auto) Absolute Lymphs (auto) Absolute Monos (auto) Absolute Eos (auto) Absolute Basos (auto) Absolute Nucleated RBC Immature Gran % Neutrophils % Band Neutrophils % Lymphocytes % Monocytes % Eosinophils % Metamyelocytes % Myelocytes % Blast Cells % Nucleated RBC % Abs Neuts (Manual) Abs Lymphs (Manual) Abs Monocytes (Manual) Absolute Eos (Manual) Abs Basophils (Manual) Normal RBC Morphology Anisocytosis INR (Anticoag Therapy) APTT Sodium Potassium Chloride Carbon Dioxide Anion Gap BUN Creatinine Est GFR ( Amer) Est GFR (Non-Af Amer) BUN/Creatinine Ratio Glucose Lactic Acid 1.7 Calcium Total Bilirubin AST ALT Alkaline Phosphatase Troponin I Total Protein Albumin Globulin Albumin/Globulin Ratio Urine Color Yellow Urine Appearance Clear Urine pH 5.0 Ur Specific [place] 1.019 Urine Protein 1+(30 mg/dl) A Urine Ketones Negative Urine Blood 2+ A Urine Nitrate Negative Urine Bilirubin Negative Urine Urobilinogen Negative Ur Leukocyte Esterase Negative Urine WBC (Auto) Trace(0-5/hpf) Urine RBC (Auto) 2+(6-10/hpf) A Ur Squamous Epith Cells Present A Urine Bacteria Absent Urine Glucose Negative Blood Type Antibody Screen Crossmatch 06/07/19 06/07/19 06/07/19 05:43 05:43 05:43 WBC 1.3 L RBC 2.04 L Hgb 6.5 L Hct 18 L MCV 86 MCH 32 H MCHC 37 H RDW 16 H Plt Count 9 L* MPV 8.3 Neut % (Auto) Not Reportable Lymph % (Auto) Not Reportable [place] % (Auto) Not Reportable Eos % (Auto) Not Reportable Baso % (Auto) Not Reportable Absolute Neuts (auto) 0.8 L* Absolute Lymphs (auto) Not Reportable Absolute Monos (auto) Not Reportable Absolute Eos (auto) Not Reportable Absolute Basos (auto) Not Reportable Absolute Nucleated RBC Not Reportable Immature Gran % 22.0 H Neutrophils % 11.0 Band Neutrophils % 11.0 H Lymphocytes % 55.0 Monocytes % 2.0 Eosinophils % 1.0 Metamyelocytes % 5.0 H Myelocytes % 6.0 H Blast Cells % 9.0 H* Nucleated RBC % Not Reportable Abs Neuts (Manual) 0.4 L* Abs Lymphs (Manual) 0.7 L Abs Monocytes (Manual) 0.0 Absolute Eos (Manual) 0.0 Abs Basophils (Manual) 0.0 Normal RBC Morphology Not Reportable Anisocytosis 1+ INR (Anticoag Therapy) APTT Sodium 139 Potassium 3.6 Chloride 105 Carbon Dioxide 27 Anion Gap 7 BUN 14 Creatinine 0.95 Est GFR ( Amer) 101.5 Est GFR (Non-Af Amer) 83.9 BUN/Creatinine Ratio 14.7 Glucose 119 H Lactic Acid Calcium 8.9 Total Bilirubin AST ALT Alkaline Phosphatase Troponin I Total Protein Albumin Globulin Albumin/Globulin Ratio Urine Color Urine Appearance Urine pH Ur Specific [place] Urine Protein Urine Ketones Urine Blood Urine Nitrate Urine Bilirubin Urine Urobilinogen Ur Leukocyte Esterase Urine WBC (Auto) Urine RBC (Auto) Ur Squamous Epith Cells Urine Bacteria Urine Glucose Blood Type O Positive Antibody Screen Negative Crossmatch See Detail Acetaminophen (Tylenol Tab*) 650 mg PO Q4H PRN PRN Reason: PAIN-MILD/TEMP >/= 100.4 Last Admin: 06/07/19 08:46 Dose: 650 mg Acyclovir (Zovirax Tab*) 400 mg PO BID [facility] Last Admin: 06/07/19 08:33 Dose: 400 mg Amlodipine Besylate (Norvasc Tab*) 10 mg PO DAILY [facility] Last Admin: 06/07/19 08:32 Dose: 10 mg Clonidine HCl (Xodyfzun-Vjr-5 0.2 Mg Patch*) 0.2 mg TRANSDERM We@0900 [facility] Cefepime HCl (Maxipime 2 Gm In Dextrose Duplex (*)) 2 gm in 50 mls @ 100 mls/ hr IV Q8H [facility] Last Admin: 06/07/19 03:19 Dose: 100 mls/hr Sodium Chloride (Ns 0.9% 1000 Ml) 1,000 mls @ 100 mls/hr IV PER RATE [facility] Last Admin: 06/07/19 08:35 Dose: 100 mls/hr Losartan Potassium (Cozaar Tab*) 100 mg PO DAILY [facility] Last Admin: 06/07/19 08:32 Dose: 100 mg Metoprolol Tartrate (Lopressor Tab*) 25 mg PO BID [facility] Last Admin: 06/07/19 08:33 Dose: 25 mg Tamsulosin HCl (Flomax Cap*) 0.4 mg PO DAILY [facility] Last Admin: 06/07/19 08:33 Dose: 0.4 mg Tramadol HCl (Ultram*) 50 mg PO Q8H PRN PRN Reason: PAIN - SEVERE Assessment: 48 yo M w AML sp 7+3 c/b admission for febrile neutropenia, with clear 14 day marrow, now sp HiDAC 05/29 and neulasta 05/31 admitted with febrile neutropenia without clear source. Plan: Full admission for febrile neutropenia cefepime 2G IV q8 hr, watch for rash fu blood cultures cont acyclovir PPx transfuse leukoreduced irradiated products for plts <10 or Hb <7 HTN: normotensive cont home meds no DVT prophylaxis given profound thrombocytopenia full code
[2019-06-08] MEDS: Cefepime 2 GM in Dextrose(*) 2 GM/50 ML BAG IV SCH ×2 (04:12→12:02)
[2019-06-08 05:41] LABS: Hematocrit 20 % (42-52); Hemoglobin 7.2 g/dL (14.0-18.0); Mean Corpuscular HGB Conc 36 g/dL (31-36); Mean Corpuscular Hemoglobin 31 pg (27-31); Mean Corpuscular Volume 86 fL (80-94); Mean Platelet Volume 8.1 fL (7.4-10.4); Platelet Count 8 10^3/uL (150-450); Red Cell Distribution Width 16 % (10-15); White Blood Count 8.5 10^3/uL (3.5-10.8)
[2019-06-08 05:51] LABS: Albumin 3.9 g/dL (3.2-5.2); Albumin/Globulin Ratio 1.8 (1-3); BUN/Creatinine Ratio 12.7 (8-20); Calcium 9.1 mg/dL (8.6-10.3); EGFR African American 93.5 (>60); EGFR Non-African American 77.3 (>60); Globulin 2.2 g/dL (2-4); Magnesium 1.5 mg/dL (1.9-2.7); Potassium 3.3 mmol/L (3.5-5.0); Total Bilirubin 1.1 mg/dL (0.2-1.0); Total Protein 6.1 g/dL (6.4-8.9)
[2019-06-08 07:22] LABS: ABS Lymphocytes 0.7 10^3/ul (1.0-4.8); ABS Monocytes 0.1 10^3/ul (0-0.8); ABS Neutrophils 7.3 10^3/ul (1.5-7.7); Eosinophil % 0.5 %; Lymphocyte % 8.5 %
[2019-06-08] MEDS: Acyclovir* 400 MG TAB PO SCH (08:47)
[2019-06-08] MEDS: Losartan TAB* 25 MG PO SCH (08:47)
[2019-06-08] MEDS: Metoprolol Tartrate TAB* 25 MG PO SCH (08:47)
[2019-06-08] MEDS: amLODIPine TAB* 5 MG PO SCH (08:47)
[2019-06-08] MEDS: Tamsulosin CAP* 0.4 MG PO SCH (08:47)
[2019-06-08] MEDS: NS 0.9% 1000 ML** 1,000 ML IV SCH (10:40)
--- NOTE | 2019-06-08 11:48 | DS ---
DISCHARGE SUMMARY: DATE OF ADMISSION: 06/06/19 DATE OF DISCHARGE: 06/08/19 DISCHARGE DIAGNOSES: 1. Acute myelocytic lymphoma. 2. Neutropenic fever. 3. Sleep apnea. HOSPITAL COURSE: He came in with a neutropenic fever, isolated fever, no associated symptoms. He was feeling particularly fatigued. He was placed on IV antibiotics with cefepime. Fevers resolved after day 1 of admission, he was 99.2 on 06/07/19 at 2247 and was 97.6 this morning. Neutrophils were 0.2 on increased to 0.8 on 06/07/19 and 7300 today. Of note, there was question of blast on his blood film. The blood film was reviewed by Pathology today. Multiple activated monos, there are scattered blasts, estimated at approximately 1%. He also has anemia and thrombocytopenia today. Last chemotherapy was HiDAC on 05/29/19. Otherwise no complaints, he has a headache this morning from not using a sleep apnea machine last night. PHYSICAL EXAMINATION: Temperature of 97.6, BP 117/80, pulse 86, respirations 18 , O2 sat 98%. HEENT: Pale. Mucosa moist. No lesions. No thrush. Lungs: Clear to auscultation. Heart: Regular rhythm. S1, S2. No murmurs or gallops. Abdomen: Obese, nontender, nondistended. Good bowel sounds. Extremities: Warm to the touch. Skin: No clear bruising or petechiae. Plan will be transfuse platelets and packed red blood cells today. We will follow up on Friday with CBC. Plan blood film. If persistent blast consider bone marrow biopsy. DISCHARGE MEDICATIONS: We will resume all home medications including blood pressure. 1. Acyclovir 400 mg p.o. b.i.d. 2. Amlodipine 5 mg p.o. daily. 3. Catapres 0.2 patch. 4. Losartan 25 mg daily. 5. Metoprolol 25 mg b.i.d. 6. Tamsulosin 0.4 daily. 7. Tramadol 50 mg 1 to 2 tabs q.8 p.r.n. pain. 8. Voltaren gel p.r.n. 9. Hydrochlorothiazide 25 mg daily. 10. No antibiotics on discharge. FOLLOWUP: Followup will be on Friday and he follows up at [facility] , potentially for cycle 3 of high dose therapy. [id number]/[facility] #: [id number] MTDD
[2019-06-08] MEDS ORDERED: diPHENhydraMINE PO* 25 MG PO ONE (12:13)
[2019-06-08] MEDS ORDERED: diPHENhydraMINE PO* 25 MG ONE (12:17)
[2019-06-08 12:23] VITALS: BP 139/99
[2019-06-08 13:45] LABS: Mean Platelet Volume 7.2 fL (7.4-10.4); Platelet Count 24 10^3/uL (150-450)
[2019-06-09] MEDS ORDERED: cloNIDine 0.2 MG PATCH* 0.2 MG/24 HR 7 DAY PATCH TRANSDERM SCH (09:00)
--- NOTE | 2019-06-14 09:11 | DS ---
- Discharge Summary ADDENDUM: CONDITION ON DISCHARGE, STABLE
--- NOTE | 2019-07-19 09:20 | DS ---
DISCHARGE SUMMARY: DATE OF ADMISSION: DATE OF DISCHARGE: 06/08/19 ADDENDUM: DISPOSITION: Home. [id number]/[facility] #: [id number] MTDD
== END 2019-06-08 17:15 | disposition home or self-care (01) | DRG 809 ==
LOC: ED 18:05 → MEDTELE 20:43 → ICU 21:53 → OBSVTOIN 06-07 09:23 → MED 06-07 11:58
PROVIDERS: ADMIT Internal Medicine; ATTEND Internal Medicine Hematology & Oncology
PROC: 30233R1 Transfusion of Nonautologous Platelets into Peripheral Vein, Percutaneous Approach (ICD-10-PCS; principal; 2019-06-07)
PROC: 30233N1 Transfusion of Nonautologous Red Blood Cells into Peripheral Vein, Percutaneous Approach (ICD-10-PCS; 2019-06-07)
DX: D70.9 Neutropenia, unspecified (principal); C92.00 Acute myeloblastic leukemia, not having achieved remission; I10 Essential (primary) hypertension; G89.29 Other chronic pain; M54.2 Cervicalgia; G47.33 Obstructive sleep apnea (adult) (pediatric); E66.9 Obesity, unspecified; E78.5 Hyperlipidemia, unspecified; E78.00 Pure hypercholesterolemia, unspecified; D69.6 Thrombocytopenia, unspecified; R50.81 Fever presenting with conditions classified elsewhere; D64.9 Anemia, unspecified; Z92.21 Personal history of antineoplastic chemotherapy; Z90.49 Acquired absence of other specified parts of digestive tract; Z98.52 Vasectomy status; Z68.34 Body mass index [BMI] 34.0-34.9, adult; Z88.8 Allergy status to other drugs, medicaments and biological substances; Z80.8 Family history of malignant neoplasm of other organs or systems; Z87.891 Personal history of nicotine dependence; Z86.73 Personal history of transient ischemic attack (TIA), and cerebral infarction without residual deficits
CPT/HCPCS: 36415; 71045; 80048; 80053; 81003; 81015; 83605; 83735; 84484; 85025; 85049; 85060; 85610; 85730; 86850; 86900; 86901; 86922; 87040; 87086; 87641; 96361; 96372; 96374; 99233; 99239; 99284; A9270-GY; G0378; J0692; P9035; P9040

== ENCOUNTER 2019-07-04 12:01 | Inpatient (IN) | payer OTHER ==
[2019-07-04] MEDS ORDERED: NS 0.9% 1000 ML** 1,000 ML IV ONE ×2 (12:16→14:25)
[2019-07-04] MEDS ORDERED: Cefepime(*) 1 GM in NS 0.9% 50 ML* 50 ML IVPB ONE (12:22)
--- NOTE | 2019-07-04 12:23 | ED ---
HPI Febrile Illness - HPI Summary HPI Summary: This patient is a 48 year old M with a history of leukemia, neutropenic fever in the past, presenting to [facility] accompanied by with a chief complaint of fever since 1100 this morning 07/04/19. Pt reports first temp was 100.5 F at 1100 and 15 min later 101.7 F. Pt also reports nonproductive cough and dental pain on the right side since 0300 this morning, 07/04/19, for which he took Tylenol. Pt reports his face is swollen due to tooth ache and woke up in the middle of the night due to pain. Pt reports similar symptoms occurred 1 month ago when he was admitted for 2 days. Last chemotherapy was 8 days ago. - History of Current Complaint Chief Complaint: EDFever Time Seen by Provider: 07/04/19 12:14 Hx Obtained From: Patient Onset/Duration: Started Hours Ago, Still Present Timing: Constant Pain Intensity: 3 Pain Scale Used: 0-10 Numeric Aggravating Factors: Nothing Alleviating Factors: Nothing Associated Signs and Symptoms: Cough, Other: - dental pain - Additional Pertinent History Primary Care Physician: FAREED - Allergy/Home Medications Allergies/Adverse Reactions: Allergies Allergy/AdvReac Type Severity Reaction Status Date / Time menthol [From [facility]] Allergy Blisters Verified 07/04/19 12:06 methyl salicylate Allergy Blisters Verified 07/04/19 12:06 [From [facility]] Home Medications: Home Medications Fluconazole [Fluconazole 200 mg tab] 400 mg PO DAILY 07/04/19 [History Confirmed 07/04/19] Prochlorperazine TAB* [Compazine Tab*] 10 mg PO Q8H PRN 07/04/19 [History Confirmed 07/04/19] traMADol TAB* [Ultram*] 50 - 100 mg PO Q8HR 07/04/19 [History Confirmed 07/04/19 ] PMH/Surg Hx/FS Hx/Imm Hx Endocrine/Hematology History: Reports: Hx Unexplained Bleeding - hemorrhagic stroke Denies: Hx Anticoagulant Therapy, Hx Diabetes Cardiovascular History: Reports: Hx Angina, Hx Hypercholesterolemia, Hx Hypertension - controlled on meds Denies: Hx Aneurysm, Hx Congestive Heart Failure, Hx Coronary Artery Disease , Hx Myocardial Infarction, Hx Pacemaker/ICD, Hx Valvular Heart Disease Respiratory History: Reports: Hx Sleep Apnea - CPAP Denies: Hx Asthma, Hx Chronic Obstructive Pulmonary Disease (COPD) GI History: Reports: Hx Gall Bladder Disease - s/p cholecystectomy, Other GI Disorders - appi Denies: Hx Cirrhosis, Hx Crohn's Disease, Hx Diverticulosis, Hx Gastrointestinal Bleed, Hx Hiatal Hernia, Hx Irritable Bowel, Hx Obstructive Bowel, Hx Ulcer History: Denies: Hx Benign Prostatic Hyperplasia, Hx Chronic Renal Failure, Hx Kidney Infection, Hx Kidney Stones, Hx Renal Disease Musculoskeletal History: Reports: Hx Back Problems - 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, Hx Orthopedic Injury, Other Musculoskeletal History - degenerative disk disease Sensory History: Reports: Hx Contacts or Glasses - Reading Denies: Hx Hearing Aid Opthamlomology History: Reports: Hx Contacts or Glasses - Reading Neurological History: Reports: Hx CVA - hemorrhagic stroke Denies: Hx Dementia, Hx Developmental Delay Psychiatric History: Denies: Hx Panic Disorder - Cancer History Cancer Type, 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 Hx Chemotherapy: Yes - Surgical History Surgery Procedure, Year, and Place: TONSILS, TOE NAIL REMOVED Hx Anesthesia Reactions: No Infectious Disease History: No Infectious Disease History: Denies: Hx Clostridium Difficile, Hx Hepatitis, Hx Human Immunodeficiency Virus (HIV), Hx Shingles, Hx Tuberculosis, Traveled Outside the [place] in Last 30 Days - Family History Known Family History: Positive: None Negative: Cardiac Disease, Hypertension, Diabetes - Social History Alcohol Use: None Hx Substance Use: No Substance Use Type: Reports: None Hx Tobacco Use: Yes Smoking Status (MU): Former Smoker Type: Cigarettes Amount Used/How Often: 1PPD Review of Systems Positive: Fever Positive: Dental Pain Positive: Cough Positive: Other - face swelling All Other Systems Reviewed And Are Negative: Yes Physical Exam - Summary Physical Exam Summary: Constitutional: chronically ill appearing, pale conjunctiva Skin: Warm, Dry HENT: Normocephalic; Atraumatic, periapical abscess to R lower 1st molar. No trismus. mild soft tissue swelling R cheek Eyes: Conjunctiva normal Neck: Musculoskeletal ROM normal neck. (-) JVD, (-) Stridor, (-) Nuchal rigidity Cardio: Rhythm regular, tachycardia, Heart sounds normal; Intact distal pulses; Radial pulses are 2+ and symmetric. (-) Murmur Pulmonary/Chest wall: Effort normal. (-) Respiratory distress, (-) Wheezes, (-) Rales Abd: Soft, (-) tenderness, (-) Distension, (-) Guarding, (-) Rebound Musculoskeletal: (-) Edema Lymph: (-) Cervical adenopathy Neuro: Alert, Oriented x3 Psych: Mood and affect Normal Triage Information Reviewed: Yes Vital Signs On Initial Exam: Initial Vitals Temp Pulse Resp BP Pulse Ox 99.3 F 106 16 103/70 97 07/04/19 12:03 07/04/19 12:03 07/04/19 12:03 07/04/19 12:03 07/04/19 12:03 Vital Signs Reviewed: Yes Diagnostics - Vital Signs Vital Signs Temp Pulse Resp BP Pulse Ox 07/04/19 12:03 99.3 F 106 16 103/70 97 - Laboratory Result Diagrams: 07/04/19 12:43 07/04/19 12:43 Lab Statement: Any lab studies that have been ordered have been reviewed, and results considered in the medical decision making process. - Radiology Chest X-Ray Radiology Interpretation Completed By: Radiologist Summary of Radiographic Findings: Per radiologist,. NO ACTIVE CARDIOPULMONARY DISEASE. ED physician has reviewed this imaging report. Course/Dx - Course Course Of Treatment: 48 y/o male w hx leukemia followed by Dr. Song and in [place] p/w fever. -Febrile at home to 101.7. Given cefepime. Reports cough but no e/o infiltrate on CXR. Blood cultures sent. LA 2.0, given 1 L IVF. Periapical abscess to lower R first molar with mild tissue swelling of face. Defer I&D given platelets. - Diagnoses Provider Diagnoses: Neutropenic fever, Pain, dental - Provider Notifications Discussed Care Of Patient With: Luis Kellogg Time Discussed With Above Provider: 13:49 Instructed by Provider To: Other - Dr. Smith (PA): agrees with plan and will follow up with hospitalist. Preston 1349: Accepts admission. Discharge ED - Sign-Out/Discharge Documenting (check all that apply): Patient Departure - admit - Discharge Plan Condition: Stable Disposition: ADMITTED TO [facility] - Billing Disposition and Condition Condition: STABLE Disposition: Admitted to [facility] - Attestation Statements Document Initiated by Scribe: Yes Documenting Scribe: Elmira Anderson Provider For Whom Scribe is Documenting (Include Credential): Dr. Jerod Carter MD Scribe Attestation: I, Elmira Anderson, scribed for Dr. Jerod Carter MD on 07/04/19 at 1622. Scribe Documentation Reviewed: Yes Provider Attestation: The documentation as recorded by the scribeElmira accurately reflects the service I personally performed and the decisions made by me, Dr. Jerod Carter MD Status of Scribe Document: Viewed
[2019-07-04] MEDS ORDERED: NS 0.9% 50 ML* 50 ML ONE (12:47)
[2019-07-04 13:00] LABS: Hematocrit 21 % (42-52); Hemoglobin 7.5 g/dL (14.0-18.0); Mean Corpuscular HGB Conc 36 g/dL (31-36); Mean Corpuscular Hemoglobin 31 pg (27-31); Mean Corpuscular Volume 87 fL (80-94); Mean Platelet Volume 7.9 fL (7.4-10.4); Platelet Count 15 10^3/uL (150-450); Red Blood Count 2.42 10^6 /uL (4.18-5.48); Red Cell Distribution Width 16 % (10-15); White Blood Count 0.2 10^3/uL (3.5-10.8)
[2019-07-04] MEDS ORDERED: Cefepime 1 GM in Dextrose(*) 1 GM/50 ML q12h (Duplex) IV ONE (13:00)
[2019-07-04 13:04] LABS: Activated Partial Thrombo Time 34.9 seconds (26.0-38.0); INR 1.27 (0.82-1.09)
[2019-07-04] MEDS ORDERED: Lidocaine 2% EPI 1:200000 MPF* 10 ML VIAL INJ ONE (13:05)
[2019-07-04 13:09] LABS: Albumin 4.7 g/dL (3.2-5.2); Albumin/Globulin Ratio 1.6 (1-3); BUN/Creatinine Ratio 17.4 (8-20); EGFR African American 86.6 (>60); EGFR Non-African American 71.6 (>60); Globulin 2.9 g/dL (2-4); Potassium 3.7 mmol/L (3.5-5.0); Total Bilirubin 2.8 mg/dL (0.2-1.0); Total Protein 7.6 g/dL (6.4-8.9)
[2019-07-04] MEDS ORDERED: NS 0.9% 1000 ML** 1,000 ML IV SCH (14:30)
[2019-07-04] MEDS ORDERED: Acetaminophen TAB* 325 MG PO ONE (14:31)
[2019-07-04] MEDS ORDERED: Prochlorperazine TAB* 10 MG PO PRN (14:31)
[2019-07-04] MEDS ORDERED: cloNIDine 0.2 MG PATCH* 0.2 MG/24 HR 7 DAY PATCH TRANSDERM SCH ×2 (15:00→17:00)
[2019-07-04 16:59] LABS: Urine Appearance Clear; Urine Bacteria Absent (Absent); Urine Bilirubin Negative (Negative); Urine Blood 1+ (Negative); Urine Color Yellow; Urine Glucose Negative (Negative); Urine Ketones Negative (Negative); Urine Nitrite Negative (Negative); Urine Protein Negative (Negative); Urine Red Blood Cell Trace(0-2/hpf) (Absent); Urine Specific Gravity 1.018 (1.010-1.030); Urine Squamous Epithelial Cell Present (Absent); Urine Urobilinogen Negative (Negative); Urine White Blood Cell Absent (Absent)
[2019-07-04] MEDS: Acetaminophen TAB* 325 MG PO PRN (19:50)
[2019-07-04] MEDS: Acyclovir* 400 MG TAB PO SCH (19:58)
[2019-07-04] MEDS: Metoprolol Tartrate TAB* 50 mg PO SCH (19:58)
--- NOTE | 2019-07-04 20:01 | HP ---
CC: Cari Og NP * [facility] MEDICINE HISTORY AND PHYSICAL: DATE OF ADMISSION: 07/04/19 PRIMARY CARE PROVIDER: Cari Og NP ATTENDING PHYSICIAN: Dr. Johntson * (dictation provided by Shaista Acuna NP). CHIEF COMPLAINT: Fever. HISTORY OF PRESENT ILLNESS: Mr. 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 The patient was admitted here earlier in June with discharge on 06/14/19 for neutropenic fever after receiving his first round of HiDAC. He has received his most recent round of HiDAC 8 days ago. He has had transfusions outpatient managed by the [facility] including, I believe, 2 units of packed red blood cells and a unit of platelets. Today, he had sudden onset of fever that was greater than 104 and therefore, he came to the emergency room for evaluation. He denies any specific symptom other than reporting a headache today. He denies cough. He has had no chest pain, shortness of breath, nausea , vomiting, diarrhea, or abdominal pain. He has no rashes or ulcerations. In the emergency room, Mr. Quigley was found to be neutropenic, thrombocytopenic, and anemic. His WBCs were 0.2, hemoglobin 7.5, platelet count 15, and absolute neutrophil 0.0. He has normal BUN and creatinine, and his electrolytes are normal. He had a chest x-ray which shows no acute process. Blood cultures have been obtained, and he has been given cefepime. PAST MEDICAL HISTORY: 1. Acute myeloblastic leukemia. 2. Hypertension. 3. History of intracranial hemorrhage. 4. History of chronic neck pain. 5. Obstructive sleep apnea. 6. Obesity. 7. Dyslipidemia. 8. History of esophageal stricture. 9. History of nonalcoholic liver disease. PAST SURGICAL HISTORY: 1. Status post tracheostomy in the past. 2. History of vasectomy. 3. History of tonsillectomy. 4. Remote cholecystectomy. 5. Appendectomy. 6. Ventriculostomy. MEDICATIONS: 1. Tramadol 50 to 100 mg p.o. q.8 hours. 2. Prochlorperazine 10 mg p.o. q.8 hours p.r.n. 3. Fluconazole 400 mg p.o. daily. 4. Metoprolol tartrate 25 mg p.o. b.i.d. 5. Losartan 100 mg p.o. daily. 6. Hydrochlorothiazide 12.5 mg p.o. daily. 7. Diclofenac 1% gel as instructed. 8. Acyclovir 400 mg p.o. b.i.d. 9. Clonidine patch 0.2% transdermally q.7 days. 10. Amlodipine 10 mg p.o. daily. 11. Tamsulosin 0.4 mg daily. ALLERGIES: To MENTHOL and METHYL SALICYLATE. FAMILY HISTORY: The patient's father had a history of hemochromatosis, of [place] at age 69. Mother from accidental overdose. SOCIAL HISTORY: The patient quit smoking in 2010 after smoking for 27 years. He rarely uses alcohol. No report of drug use. He is a retired and disabled . His surrogate decision maker is his and he is full code. REVIEW OF SYSTEMS: A 14-point review of systems was completed with Mr. Quigley and all those not mentioned above are negative. PHYSICAL EXAMINATION GENERAL: Mr. Quigley is sitting on the bed, he states he is tired, but he is in no acute distress. VITAL SIGNS: Temperature 97.5, but has been as high as 101.7 in the emergency room, heart rate 93, respiratory rate 16, O2 saturation 100% on room air, blood pressure 119/70. LUNGS: Clear to auscultation bilaterally with no accessory muscle use and good aeration. HEART: S1, S2. No murmur, rub, or gallop and regular. ABDOMEN: Soft, nontender with bowel sounds positive x4. EXTREMITIES: No cyanosis, no edema. NEURO: He is alert. He is oriented x3. He moves all extremities equally. SKIN: Intact. DIAGNOSTIC STUDIES/LAB DATA: Sodium 136, potassium 3.7, chloride 100, serum bicarbonate 27, BUN 19, creatinine 1.09, glucose 144. WBC 0.2, hemoglobin 7.5, hematocrit 21, platelet count 15, ANC 0. Again, the chest x-ray showed no acute process. ASSESSMENT: Mr. Quigley is a 48-year-old male with past medical history of acute myeloblastic leukemia, on HiDAC chemotherapy, who presents today to the hospital with neutropenic fever. Our plans are for inpatient admission for the followin. Neutropenic fever: I have discussed the case with TYLER Hunter from the oncology team. Our plan will be to treat with cefepime 2 g q.8 hours. He will have intravenous fluids. He has had appropriate cultures, with blood culture and urinalysis. His chest x-ray is normal. We will be monitoring his labs closely and routine labs have been drawn for the a.m. As his hemoglobin is greater than 7 and he is asymptomatic, I do not intend to transfuse. Similarly, as his platelets are greater than 10 and he has no evidence of bleeding, I do not plan to transfuse platelets. 2. Hypertension. Plan to continue his clonidine, losartan, and metoprolol as his blood pressure is in the 120s today, but those are all written with hold parameters. 3. Obstructive sleep apnea. The patient will have CPAP available here in the hospital and we can adjust that or use his home machine as it is available. 4. DVT prophylaxis with SCDs only and the patient with thrombocytopenia. 5. Code status is full code. TIME SPENT: Approximately 60 minutes was spent on the admission of this patient ; more than half of the time was spent with the patient at the bedside reviewing the events leading up to this hospitalization, performing the physical examination and reviewing the plan of care. SHAISTA ACUNA NP [id number]/[facility] #: [id number] SOTO
[2019-07-04] MEDS: Benzocaine (DENTAL) 10%* TOP.GEL TOPICAL PRN (20:34)
[2019-07-04] MEDS: Cefepime 2 GM in Dextrose(*) 2 GM/50 ML BAG IV SCH (20:35)
[2019-07-05] MEDS: Cefepime 2 GM in Dextrose(*) 2 GM/50 ML BAG IV SCH ×3 (04:45→20:51)
[2019-07-05 05:13] LABS: Hematocrit 16 % (42-52); Hemoglobin 5.9 g/dL (14.0-18.0); Mean Corpuscular HGB Conc 36 g/dL (31-36); Mean Corpuscular Hemoglobin 31 pg (27-31); Mean Corpuscular Volume 86 fL (80-94); Mean Platelet Volume 8.4 fL (7.4-10.4); Platelet Count 9 10^3/uL (150-450); Red Blood Count 1.91 10^6 /uL (4.18-5.48); Red Cell Distribution Width 16 % (10-15); White Blood Count 0.2 10^3/uL (3.5-10.8)
[2019-07-05 05:21] LABS: BUN/Creatinine Ratio 19.5 (8-20); Calcium 9.4 mg/dL (8.6-10.3); EGFR African American 120.3 (>60); EGFR Non-African American 99.5 (>60); Potassium 3.7 mmol/L (3.5-5.0)
[2019-07-05] MEDS: Acyclovir* 400 MG TAB PO SCH ×2 (08:49→20:51)
[2019-07-05] MEDS: amLODIPine TAB* 5 MG PO SCH (08:50)
[2019-07-05] MEDS: Tamsulosin CAP* 0.4 MG PO SCH (08:54)
[2019-07-05] MEDS: Losartan TAB* 25 MG PO SCH (08:54)
[2019-07-05] MEDS: Fluconazole 100 MG TAB* TAB PO SCH (08:55)
[2019-07-05] MEDS: Metoprolol Tartrate TAB* 50 mg PO SCH ×2 (08:57→20:51)
[2019-07-05] MEDS ORDERED: amLODIPine TAB* 5 MG PO SCH (09:00)
[2019-07-05] MEDS: Benzocaine (DENTAL) 10%* TOP.GEL TOPICAL PRN ×3 (09:20→20:52)
--- NOTE | 2019-07-05 10:24 | PN ---
Progress Note - Progress Note Date of Service: 07/05/19 SOAP: Subjective: [Yandel was admitted yesterday with neutropenic fever. He didn't sleep well last night, otherwise feeling ok. Tmax 1530 101.7. 1/4 blood cultures are positive this morning for strep midis. He reports having some pain in the R lower jaw. He has known dental disease in the area. Objective: [ Vital Signs: Temp Pulse Resp BP Pulse Ox 98.6 F 90 18 122/72 96 07/05/19 06:55 07/05/19 06:55 07/05/19 06:55 07/05/19 06:55 07/05/19 06:55 Acetaminophen (Tylenol Tab*) 650 mg PO Q6H PRN PRN Reason: Pain - Mild, fever Last Admin: 07/04/19 19:50 Dose: 650 mg Acyclovir (Zovirax Tab*) 400 mg PO BID [facility] Last Admin: 07/05/19 08:49 Dose: 400 mg Amlodipine Besylate (Norvasc Tab*) 10 mg PO DAILY [facility] Last Admin: 07/05/19 08:50 Dose: 10 mg Benzocaine (Orajel 10%*) 1 applic TOPICAL Q2H PRN PRN Reason: NOT SPECIFIED Last Admin: 07/05/19 09:20 Dose: 1 applic Clonidine HCl (Ggcnxwmt-Beq-3 0.2 Mg Patch*) 0.2 mg TRANSDERM Q7D [facility] Fluconazole (Diflucan 100 Mg Tab*) 400 mg PO DAILY [facility] Last Admin: 07/05/19 08:55 Dose: 400 mg Cefepime HCl (Maxipime 2 Gm In Dextrose Duplex (*)) 2 gm in 50 mls @ 100 mls/ hr IV Q8H [facility] Last Admin: 07/05/19 04:45 Dose: 100 mls/hr Sodium Chloride (Ns 0.9% 1000 Ml) 1,000 mls @ 75 mls/hr IV PER RATE [facility] Losartan Potassium (Cozaar Tab*) 100 mg PO DAILY [facility] Last Admin: 07/05/19 08:54 Dose: 100 mg Metoprolol Tartrate (Lopressor Tab*) 25 mg PO BID [facility] Last Admin: 07/05/19 08:57 Dose: 25 mg Prochlorperazine (Compazine Tab*) 10 mg PO Q8H PRN PRN Reason: NAUSEA Tamsulosin HCl (Flomax Cap*) 0.4 mg PO DAILY [facility] Last Admin: 07/05/19 08:54 Dose: 0.4 mg Laboratory Results - last 24 hr 07/04/19 07/04/19 07/04/19 12:43 12:43 12:43 WBC 0.2 L RBC 2.42 L Hgb 7.5 L Hct 21 L MCV 87 MCH 31 MCHC 36 RDW 16 H Plt Count 15 L* D MPV 7.9 Neut % (Auto) Not Reportable Lymph % (Auto) Not Reportable [place] % (Auto) Not Reportable Eos % (Auto) Not Reportable Baso % (Auto) Not Reportable Absolute Neuts (auto) Not Reportable Absolute Lymphs (auto) Not Reportable Absolute Monos (auto) Not Reportable Absolute Eos (auto) Not Reportable Absolute Basos (auto) Not Reportable Absolute Nucleated RBC Not Reportable Neutrophils % 2.0 Lymphocytes % 98.0 Nucleated RBC % Not Reportable Abs Neuts (Manual) 0.0 L* Abs Lymphs (Manual) 0.2 L Normal RBC Morphology Normal INR (Anticoag Therapy) 1.27 H APTT 34.9 Sodium 136 Potassium 3.7 Chloride 100 L Carbon Dioxide 27 Anion Gap 9 BUN 19 Creatinine 1.09 Est GFR ( Amer) 86.6 Est GFR (Non-Af Amer) 71.6 BUN/Creatinine Ratio 17.4 Glucose 144 H Lactic Acid Calcium 10.0 Total Bilirubin 2.80 H AST 28 ALT 47 Alkaline Phosphatase 107 H Total Protein 7.6 Albumin 4.7 Globulin 2.9 Albumin/Globulin Ratio 1.6 Urine Color Urine Appearance Urine pH Ur Specific [place] Urine Protein Urine Ketones Urine Blood Urine Nitrate Urine Bilirubin Urine Urobilinogen Ur Leukocyte Esterase Urine WBC (Auto) Urine RBC (Auto) Ur Squamous Epith Cells Urine Bacteria Hyaline Casts Urine Glucose Blood Type Antibody Screen Crossmatch 07/04/19 07/04/19 07/04/19 12:43 12:43 16:16 WBC RBC Hgb Hct MCV MCH MCHC RDW Plt Count MPV Neut % (Auto) Lymph % (Auto) [place] % (Auto) Eos % (Auto) Baso % (Auto) Absolute Neuts (auto) Absolute Lymphs (auto) Absolute Monos (auto) Absolute Eos (auto) Absolute Basos (auto) Absolute Nucleated RBC Neutrophils % Lymphocytes % Nucleated RBC % Abs Neuts (Manual) Abs Lymphs (Manual) Normal RBC Morphology INR (Anticoag Therapy) APTT Sodium Potassium Chloride Carbon Dioxide Anion Gap BUN Creatinine Est GFR ( Amer) Est GFR (Non-Af Amer) BUN/Creatinine Ratio Glucose Lactic Acid 2.0 0.8 Calcium Total Bilirubin AST ALT Alkaline Phosphatase Total Protein Albumin Globulin Albumin/Globulin Ratio Urine Color Urine Appearance Urine pH Ur Specific [place] Urine Protein Urine Ketones Urine Blood Urine Nitrate Urine Bilirubin Urine Urobilinogen Ur Leukocyte Esterase Urine WBC (Auto) Urine RBC (Auto) Ur Squamous Epith Cells Urine Bacteria Hyaline Casts Urine Glucose Blood Type O Positive Antibody Screen Negative Crossmatch See Detail 07/04/19 07/05/19 07/05/19 16:51 04:54 04:54 WBC 0.2 L RBC 1.91 L Hgb 5.9 L* Hct 16 L MCV 86 MCH 31 MCHC 36 RDW 16 H Plt Count 9 L* MPV 8.4 Neut % (Auto) Not Reportable Lymph % (Auto) Not Reportable [place] % (Auto) Not Reportable Eos % (Auto) Not Reportable Baso % (Auto) Not Reportable Absolute Neuts (auto) Not Reportable Absolute Lymphs (auto) Not Reportable Absolute Monos (auto) Not Reportable Absolute Eos (auto) Not Reportable Absolute Basos (auto) Not Reportable Absolute Nucleated RBC Not Reportable Neutrophils % 0.0 Lymphocytes % 100.0 Nucleated RBC % Not Reportable Abs Neuts (Manual) 0.0 L* Abs Lymphs (Manual) 0.2 L Normal RBC Morphology Normal INR (Anticoag Therapy) APTT Sodium 136 Potassium 3.7 Chloride 102 Carbon Dioxide 28 Anion Gap 6 BUN 16 Creatinine 0.82 Est GFR ( Amer) 120.3 Est GFR (Non-Af Amer) 99.5 BUN/Creatinine Ratio 19.5 Glucose 138 H Lactic Acid Calcium 9.4 Total Bilirubin AST ALT Alkaline Phosphatase Total Protein Albumin Globulin Albumin/Globulin Ratio Urine Color Yellow Urine Appearance Clear Urine pH 5.0 Ur Specific [place] 1.018 Urine Protein Negative Urine Ketones Negative Urine Blood 1+ A Urine Nitrate Negative Urine Bilirubin Negative Urine Urobilinogen Negative Ur Leukocyte Esterase Negative Urine WBC (Auto) Absent Urine RBC (Auto) Trace(0-2/hpf) Ur Squamous Epith Cells Present A Urine Bacteria Absent Hyaline Casts Present A Urine Glucose Negative Blood Type Antibody Screen Crossmatch Exam: Gen: Chronically ill appearing, but acutely well HEENT: multiple decaying teeth, R lower molar is obviously decayed with surrounding gingiva is inflamed, R mandible TTP CV: RRR, no m/r/g Resp: CTA, no w/c/r Abd: soft and nonTTP Ext: no edema Skin: PICC in RUE, site appears benign] Assessment: [This is a 48 yo male with AML/ALL s/p induction 7+3 at [place] receiving consolidation HiDAC, s/p C2 06/21 with Neulasta support, with supportive measures coordinated by Dr Nohemi canseco who presented with a fever in the setting of pancytopenia now with strep midis bacteremia with a likely periapical abscess in a R mandibular molar. ] Plan: [1. Neutropenic fever with strep midis bacteremia - cont Cefepime - requested sensitivities of strep midis - request ID consultation - repeat blood cultures today - will need to consider tooth extraction - PICC line is certainly a possible source of infection or may become colonized , will defer to ID recommendations on management of PICC line 2. AML/ALL - induction with 7+3 at [place] now receiving HiDAC consolidation, C2 06/21 with Neulasta support 3. Pancytopenia - 2u PRBCs today with 1U plts - transfuse for Hgb <7.5 g/dl or plts <10K 4. DVT prophylaxis - no chemical prophlaxis due to thrombocytopenia Dispo: cont inpatient care until ANC >1000 and blood cultures cleared]
[2019-07-05] MEDS ORDERED: Iohexol 300* (CONTRAST) 10 ML SDV IV ONE (12:09)
--- NOTE | 2019-07-05 12:51 | CONS ---
CONSULTATION REPORT: DATE OF CONSULT: 07/05/19 REQUESTING PROVIDER: TYLER Hunter CONSULTING SERVICE: Infectious Disease. REASON FOR CONSULT: Neutropenic fever. IMPRESSION: 1. Profound neutropenia in the setting of acute myeloblastic leukemia and chemotherapy. He does have a rotten molar on the right with profound tenderness over the mandible with some swelling and some erythema, could be underlying abscess. 2. He does have a right upper extremity PICC, which could be a source of infection or have been seeded. 3. History of intracranial hemorrhage. 4. History of nonalcoholic liver disease. 5. Pancytopenia due to chemotherapy. RECOMMENDATIONS: 1. Continue cefepime 2 g IV every 8 hours. We will add clindamycin for oral anaerobic coverage. Await the susceptibility details of the blood culture. He will eventually need that PICC change though. 2. CT of the jaw and neck for abscess. HISTORY OF PRESENT ILLNESS: This is a 48-year-old man with acute leukemia, currently undergoing chemotherapy at [place], who developed malaise and fatigue. His said he looked fine, may have taken his temperature, he had a fever, so came to the hospital yesterday. He was found to be pancytopenic with a white count of 0.2, hemoglobin of 7.5, platelets 15. His ANC was 0, same today. He was febrile to 38.7 degrees yesterday afternoon. He has had a couple of days of right jaw pain and some trouble with a tooth there for a few days. A chest x-ray here showed no active cardiopulmonary disease. Blood cultures 1 of 2 is growing Strep mitis/oralis. He does not have pain other than in his jaw, no cough and otherwise feels okay other than low energy. He is going to have transfusion this morning. PAST MEDICAL HISTORY: 1. Acute myeloblastic leukemia, treated with HiDAC via right upper extremity PICC. 2. Hypertension. 3. History of intracranial hemorrhage. 4. Chronic neck pain. 5. Obstructive sleep apnea. 6. Obesity. 7. Hyperlipidemia. 8. Esophageal stricture. 9. Nonalcoholic liver disease. 10. Status post tracheostomy. 11. Status post vasectomy. 12. Status post tonsillectomy. 13. Status post cholecystectomy. 14. Status post appendectomy. 15. Status post ventriculostomy after hemorrhage. MEDICATIONS: 1. Tylenol. 2. Acyclovir 400 mg by mouth twice daily. 3. Amlodipine. 4. Cefepime 2 g every 8 hours. 5. Clonidine patch. 6. Fluconazole 400 mg by mouth daily. 7. Metoprolol. 8. Tamsulosin. 9. Prochlorperazine. ALLERGIES: MENTHOL and METHYL SALICYLATE. FAMILY HISTORY: Father had hemochromatosis, from [place] at age 69 and mother from accidental overdose. SOCIAL HISTORY: He lives in [place] with his and kids. He is a past smoker. Rare alcohol use. REVIEW OF SYSTEMS: A 14-point review is all negative except as noted above in the history of present illness. PHYSICAL EXAM: Vital Signs: Temperature 37, heart rate 90, respiratory rate 18 , blood pressure 122/72, oxygen saturation 96% on room air. In general, he is awake, not in distress. Neurologic: He is oriented x3, follows all commands. HEENT: There is no conjunctival hemorrhage. There is pallor. Oropharynx: There is no thrush or ulceration. There is a decayed right molar with surrounding erythema of the gums and tenderness to palpation about the area of the mandible. No tenderness down into the neck. Neck is supple without mass. Heart is regular rate and rhythm without murmurs, rubs, or gallops. Lungs are clear to auscultation bilaterally. Abdomen: Soft, nontender, nondistended. There are bowel sounds present. Skin: There is no rash or splinter hemorrhage. Musculoskeletal: There is no spine tenderness to palpation or joint synovitis. DIAGNOSTIC STUDIES/LAB DATA: Creatinine 0.8, white blood cell count 0.2, hemoglobin 5.9, platelets 9000. Urinalysis shows 1+ blood. Please see impressions and recommendations outlined above. Thank you for asking me to see Mr. Quigley in consultation. [id number]/[facility] #: [id number] SOTO
[2019-07-05] MEDS: Clindamycin CAP* 150 MG PO SCH ×2 (14:15→20:50)
[2019-07-05 17:34] LABS: Mean Platelet Volume 9.1 fL (7.4-10.4); Platelet Count 7 10^3/uL (150-450)
[2019-07-05 19:44] LABS: Hematocrit 19 % (42-52); Hemoglobin 6.9 g/dL (14.0-18.0)
[2019-07-05] MEDS: Acetaminophen TAB* 325 MG PO PRN (20:44)
[2019-07-05 20:57] LABS: Mean Platelet Volume 7.6 fL (7.4-10.4); Platelet Count 15 10^3/uL (150-450)
[2019-07-06] MEDS: Benzocaine (DENTAL) 10%* TOP.GEL TOPICAL PRN ×5 (04:50→17:44)
[2019-07-06] MEDS: Cefepime 2 GM in Dextrose(*) 2 GM/50 ML BAG IV SCH ×3 (04:54→19:47)
[2019-07-06] MEDS: Metoprolol Tartrate TAB* 50 mg PO SCH ×2 (09:09→19:39)
[2019-07-06] MEDS: Acyclovir* 400 MG TAB PO SCH ×2 (09:10→19:39)
[2019-07-06] MEDS: Clindamycin CAP* 150 MG PO SCH ×3 (09:10→19:40)
[2019-07-06] MEDS: Losartan TAB* 25 MG PO SCH (09:10)
[2019-07-06] MEDS: Fluconazole 100 MG TAB* TAB PO SCH (09:11)
[2019-07-06] MEDS: Tamsulosin CAP* 0.4 MG PO SCH (09:12)
[2019-07-06] MEDS: amLODIPine TAB* 5 MG PO SCH (09:12)
[2019-07-06 09:22] LABS: Hematocrit 19 % (42-52); Hemoglobin 7.1 g/dL (14.0-18.0); Mean Corpuscular HGB Conc 37 g/dL (31-36); Mean Corpuscular Hemoglobin 32 pg (27-31); Mean Corpuscular Volume 85 fL (80-94); Platelet Count 13 10^3/uL (150-450); Red Blood Count 2.25 10^6 /uL (4.18-5.48); Red Cell Distribution Width 15 % (10-15); White Blood Count 0.3 10^3/uL (3.5-10.8)
[2019-07-06 09:30] LABS: Albumin 4.1 g/dL (3.2-5.2); Albumin/Globulin Ratio 1.5 (1-3); BUN/Creatinine Ratio 19.2 (8-20); Calcium 9.5 mg/dL (8.6-10.3); EGFR African American 137.6 (>60); EGFR Non-African American 113.7 (>60); Globulin 2.7 g/dL (2-4); Potassium 3.6 mmol/L (3.5-5.0); Total Bilirubin 2.1 mg/dL (0.2-1.0); Total Protein 6.8 g/dL (6.4-8.9)
[2019-07-06 09:42] LABS: ABS Lymphocytes 0.2 10^3/ul (1.0-4.8); ABS Neutrophils 0.1 10^3/ul (1.5-7.7); Eosinophil % 1.3 %; Lymphocyte % 68.8 %; Nucleated Red Blood Cells % 0.2
--- NOTE | 2019-07-06 11:05 | PN ---
Progress Note - Progress Note Date of Service: 07/06/19 SOAP: Subjective: [Feeling ok today. Anxious to get home. R tooth still bothering him. Tmax overnight 100.6. Maxillofacial CT shows edema in the R mandibular area, but no focal abscess. ] Objective: [ Vital Signs: Temp Pulse Resp BP Pulse Ox 98.7 F 86 20 129/76 98 07/06/19 07:15 07/06/19 07:15 07/06/19 07:15 07/06/19 07:15 07/06/19 07:15 Acetaminophen (Tylenol Tab*) 650 mg PO Q6H PRN PRN Reason: Pain - Mild, fever Last Admin: 07/05/19 20:44 Dose: 650 mg Acyclovir (Zovirax Tab*) 400 mg PO BID [facility] Last Admin: 07/06/19 09:10 Dose: 400 mg Amlodipine Besylate (Norvasc Tab*) 10 mg PO DAILY [facility] Last Admin: 07/06/19 09:12 Dose: 10 mg Benzocaine (Orajel 10%*) 1 applic TOPICAL Q2H PRN PRN Reason: NOT SPECIFIED Last Admin: 07/06/19 09:08 Dose: 1 applic Clindamycin HCl (Cleocin Cap*) 300 mg PO TID [facility] Last Admin: 07/06/19 09:10 Dose: 300 mg Clonidine HCl (Gfddisxl-Imx-8 0.2 Mg Patch*) 0.2 mg TRANSDERM Q7D [facility] Fluconazole (Diflucan 100 Mg Tab*) 400 mg PO DAILY [facility] Last Admin: 07/06/19 09:11 Dose: 400 mg Cefepime HCl (Maxipime 2 Gm In Dextrose Duplex (*)) 2 gm in 50 mls @ 100 mls/ hr IV Q8H [facility] Last Admin: 07/06/19 04:54 Dose: 100 mls/hr Losartan Potassium (Cozaar Tab*) 100 mg PO DAILY [facility] Last Admin: 07/06/19 09:10 Dose: 100 mg Metoprolol Tartrate (Lopressor Tab*) 25 mg PO BID [facility] Last Admin: 07/06/19 09:09 Dose: 25 mg Prochlorperazine (Compazine Tab*) 10 mg PO Q8H PRN PRN Reason: NAUSEA Tamsulosin HCl (Flomax Cap*) 0.4 mg PO DAILY [facility] Last Admin: 07/06/19 09:12 Dose: 0.4 mg Laboratory Results - last 24 hr 07/04/19 07/05/19 07/05/19 12:43 17:00 20:20 WBC RBC Hgb 6.9 L Hct 19 L MCV MCH MCHC RDW Plt Count 7 L* D 15 L D MPV 9.1 7.6 Neut % (Auto) Lymph % (Auto) [place] % (Auto) Eos % (Auto) Baso % (Auto) Absolute Neuts (auto) Absolute Lymphs (auto) Absolute Monos (auto) Absolute Eos (auto) Absolute Basos (auto) Absolute Nucleated RBC Nucleated RBC % Sodium Potassium Chloride Carbon Dioxide Anion Gap BUN Creatinine Est GFR ( Amer) Est GFR (Non-Af Amer) BUN/Creatinine Ratio Glucose Calcium Total Bilirubin AST ALT Alkaline Phosphatase Total Protein Albumin Globulin Albumin/Globulin Ratio Blood Type O Positive Antibody Screen Negative Crossmatch See Detail 07/06/19 07/06/19 09:00 09:00 WBC 0.3 L RBC 2.25 L Hgb 7.1 L Hct 19 L MCV 85 MCH 32 H MCHC 37 H RDW 15 Plt Count 13 L MPV 8.0 Neut % (Auto) 23.2 Lymph % (Auto) 68.8 [place] % (Auto) 5.4 Eos % (Auto) 1.3 Baso % (Auto) 1.3 Absolute Neuts (auto) 0.1 L Absolute Lymphs (auto) 0.2 L Absolute Monos (auto) 0.0 Absolute Eos (auto) 0.0 Absolute Basos (auto) 0.0 Absolute Nucleated RBC 0.0 Nucleated RBC % 0.2 Sodium 138 Potassium 3.6 Chloride 104 Carbon Dioxide 27 Anion Gap 7 BUN 14 Creatinine 0.73 Est GFR ( Amer) 137.6 Est GFR (Non-Af Amer) 113.7 BUN/Creatinine Ratio 19.2 Glucose 125 H Calcium 9.5 Total Bilirubin 2.10 H AST 11 L ALT 25 Alkaline Phosphatase 88 Total Protein 6.8 Albumin 4.1 Globulin 2.7 Albumin/Globulin Ratio 1.5 Blood Type Antibody Screen Crossmatch Exam: Gen: Relatively well appearing, in NAD HEENT: multiple decaying teeth, R lower molar is obviously decayed with surrounding gingiva is inflamed, R mandible TTP CV: RRR, no m/r/g Resp: CTA, no w/c/r Abd: soft and nonTTP Ext: no edema Skin: PICC in RUE, site appears benign] Assessment: [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 ] Plan: [1. Neutropenic fever with strep midis bacteremia - cont Cefepime and clindamycin per ID recommendations - repeat blood cultures pending from yesterday - will need to consider tooth extraction at some point, but there is no large abscess and extraction would need be proceeded by platelet infusions - will hold off for now - plan to exchange PICC line at some point prior to dc 2. AML/ALL - induction with 7+3 at [facility] now receiving HiDAC consolidation, C2 06/21 with Neulasta support 3. Pancytopenia - no additional blood products indicated today - transfuse for Hgb <7.5 g/dl or plts <10K 4. DVT prophylaxis - no chemical prophlaxis due to thrombocytopenia Dispo: cont inpatient care until ANC >1000 and blood cultures cleared]
[2019-07-06] MEDS: Acetaminophen TAB* 325 MG PO PRN (12:50)
--- NOTE | 2019-07-06 15:43 | PN ---
Progress Note - Progress Note Date of Service: 07/06/19 SOAP: Subjective: CC: fever HPI: 48 year old man with recent chemotherapy for leukemia, now with neutropenia , fever, right lower jaw pain. Today his pain is about the same, maybe a little better. Fever overnight. No rash or diarrhea. Objective: Vital Signs Temp 36.9 C 07/06/19 11:15 Pulse 99 07/06/19 11:15 Resp 18 07/06/19 11:15 BP 129/71 07/06/19 11:15 Pulse Ox 99 07/06/19 11:15 Intake & Output 07/05/19 07/06/19 07/06/19 18:59 06:59 18:59 Intake Total 1504 1169 751 Balance 1504 1169 751 Intake: IV Fluids 964 559 391 NS (0.9%) 90 559 391 PRBC 631 Platelets 243 IVPB 130 ABX - CEFEPIME 130 Oral 540 480 360 Other: Estimated Void Medium # Bowel Movements 0 # Voids 1 Gen:awake, no distress HEENT: no thrush; right mandible tender, gingiva erythematous, no lucero discoloration Heart:RRR no murmur Lungs:CTA BL Abd:+BS NTND soft Skin: no rash MSK: no joint synovitis Laboratory Results - last 24 hr 07/05/19 07/05/19 07/06/19 17:00 20:20 09:00 WBC 0.3 L RBC 2.25 L Hgb 6.9 L 7.1 L Hct 19 L 19 L MCV 85 MCH 32 H MCHC 37 H RDW 15 Plt Count 7 L* D 15 L D 13 L MPV 9.1 7.6 8.0 Neut % (Auto) 23.2 Lymph % (Auto) 68.8 [place] % (Auto) 5.4 Eos % (Auto) 1.3 Baso % (Auto) 1.3 Absolute Neuts (auto) 0.1 L Absolute Lymphs (auto) 0.2 L Absolute Monos (auto) 0.0 Absolute Eos (auto) 0.0 Absolute Basos (auto) 0.0 Absolute Nucleated RBC 0.0 Nucleated RBC % 0.2 Sodium Potassium Chloride Carbon Dioxide Anion Gap BUN Creatinine Est GFR ( Amer) Est GFR (Non-Af Amer) BUN/Creatinine Ratio Glucose Calcium Total Bilirubin AST ALT Alkaline Phosphatase Total Protein Albumin Globulin Albumin/Globulin Ratio 07/06/19 09:00 WBC RBC Hgb Hct MCV MCH MCHC RDW Plt Count MPV Neut % (Auto) Lymph % (Auto) [place] % (Auto) Eos % (Auto) Baso % (Auto) Absolute Neuts (auto) Absolute Lymphs (auto) Absolute Monos (auto) Absolute Eos (auto) Absolute Basos (auto) Absolute Nucleated RBC Nucleated RBC % Sodium 138 Potassium 3.6 Chloride 104 Carbon Dioxide 27 Anion Gap 7 BUN 14 Creatinine 0.73 Est GFR ( Amer) 137.6 Est GFR (Non-Af Amer) 113.7 BUN/Creatinine Ratio 19.2 Glucose 125 H Calcium 9.5 Total Bilirubin 2.10 H AST 11 L ALT 25 Alkaline Phosphatase 88 Total Protein 6.8 Albumin 4.1 Globulin 2.7 Albumin/Globulin Ratio 1.5 Assessment: 1. neutropenic fever 2. right mandibular molar decay and gum infection without soft tissue abscess on CT 3. AML treated with induction and consolidation chemotherapy 4. obesity Plan: 1. continue cefepime 2 gm IV Q8hrs, clindamycin 600 mg IV Q8hrs; eventual augmentin. PICC exchange when able. 2. Tooth extraction when able
[2019-07-06] MEDS ORDERED: Alteplase (CATHFLO)* 2 MG VIAL IV ONE (18:30)
[2019-07-06] MEDS ORDERED: Loperamide CAP* 2 MG PO PRN (22:17)
[2019-07-07] MEDS: Cefepime 2 GM in Dextrose(*) 2 GM/50 ML BAG IV SCH ×3 (04:42→21:21)
[2019-07-07 06:08] LABS: Hematocrit 18 % (42-52); Hemoglobin 6.6 g/dL (14.0-18.0); Mean Corpuscular HGB Conc 36 g/dL (31-36); Mean Corpuscular Hemoglobin 31 pg (27-31); Mean Corpuscular Volume 85 fL (80-94); Platelet Count 11 10^3/uL (150-450); Red Blood Count 2.15 10^6 /uL (4.18-5.48); Red Cell Distribution Width 15 % (10-15); White Blood Count 1.2 10^3/uL (3.5-10.8)
[2019-07-07 06:12] LABS: Albumin 3.8 g/dL (3.2-5.2); Albumin/Globulin Ratio 1.4 (1-3); BUN/Creatinine Ratio 17.6 (8-20); Calcium 9.4 mg/dL (8.6-10.3); EGFR African American 106.7 (>60); EGFR Non-African American 88.2 (>60); Globulin 2.8 g/dL (2-4); Potassium 3.3 mmol/L (3.5-5.0); Total Bilirubin 1.3 mg/dL (0.2-1.0); Total Protein 6.6 g/dL (6.4-8.9)
[2019-07-07 08:20] LABS: ABS Lymphocytes 0.4 10^3/ul (1.0-4.8); ABS Monocytes 0.1 10^3/ul (0-0.8); ABS Neutrophils 0.7 10^3/ul (1.5-7.7); Eosinophil % 0.4 %; Lymphocyte % 33.2 %; Nucleated Red Blood Cells % 0.1
[2019-07-07 08:21] LABS: Magnesium 1.8 mg/dL (1.9-2.7)
[2019-07-07] MEDS: Losartan TAB* 25 MG PO SCH (08:55)
[2019-07-07] MEDS: Fluconazole 100 MG TAB* TAB PO SCH (08:55)
[2019-07-07] MEDS: amLODIPine TAB* 5 MG PO SCH (08:56)
[2019-07-07] MEDS: Clindamycin CAP* 150 MG PO SCH ×3 (08:56→21:21)
[2019-07-07] MEDS: Tamsulosin CAP* 0.4 MG PO SCH (08:56)
[2019-07-07] MEDS: Acyclovir* 400 MG TAB PO SCH ×2 (08:57→21:21)
[2019-07-07] MEDS: Metoprolol Tartrate TAB* 50 mg PO SCH ×2 (08:57→21:22)
[2019-07-07] MEDS ORDERED: cloNIDine 0.2 MG PATCH* 0.2 MG/24 HR 7 DAY PATCH TRANSDERM SCH (09:00)
[2019-07-07] MEDS: Benzocaine (DENTAL) 10%* TOP.GEL TOPICAL PRN (10:10)
--- NOTE | 2019-07-07 10:22 | PN ---
Progress Note - Progress Note Date of Service: 07/07/19 SOAP: Subjective: feeling better. tooth still painful. no fevers. Objective: Vital Signs Temp Pulse Resp BP Pulse Ox 98.8 F 89 20 133/78 97 07/07/19 09:14 07/07/19 09:14 07/07/19 08:00 07/07/19 09:14 07/07/19 09:14 sitting up in nad perr eomi op moist ttp over right mandible CTA bl s1 s2 nl soft nt +Bs no le edema A+O x 3 nonfocal neurological exam PICC RUE clean Laboratory Results - last 24 hr 07/07/19 07/07/19 05:15 05:15 WBC 1.2 L RBC 2.15 L Hgb 6.6 L Hct 18 L MCV 85 MCH 31 MCHC 36 RDW 15 Plt Count 11 L MPV 8.0 Neut % (Auto) 58.9 Lymph % (Auto) 33.2 [place] % (Auto) 6.4 Eos % (Auto) 0.4 Baso % (Auto) 1.1 Absolute Neuts (auto) 0.7 L Absolute Lymphs (auto) 0.4 L Absolute Monos (auto) 0.1 Absolute Eos (auto) 0.0 Absolute Basos (auto) 0.0 Absolute Nucleated RBC 0.0 Immature Gran % 19.0 H Neutrophils % 35.0 Band Neutrophils % 13.0 H Lymphocytes % 30.0 Reactive Lymphs % 8.0 H Monocytes % 8.0 Metamyelocytes % 3.0 H Myelocytes % 3.0 H Nucleated RBC % 0.1 Normal RBC Morphology Normal Hem Pathologist Commnt Sodium 141 Potassium 3.3 L Chloride 106 Carbon Dioxide 26 Anion Gap 9 BUN 16 Creatinine 0.91 Est GFR ( Amer) 106.7 Est GFR (Non-Af Amer) 88.2 BUN/Creatinine Ratio 17.6 Glucose 120 H Calcium 9.4 Magnesium 1.8 L Total Bilirubin 1.30 H AST 14 ALT 22 Alkaline Phosphatase 82 Total Protein 6.6 Albumin 3.8 Globulin 2.8 Albumin/Globulin Ratio 1.4 Acetaminophen (Tylenol Tab*) 650 mg PO Q6H PRN PRN Reason: Pain - Mild, fever Last Admin: 07/06/19 12:50 Dose: 650 mg Acyclovir (Zovirax Tab*) 400 mg PO BID [facility] Last Admin: 07/07/19 08:57 Dose: 400 mg Amlodipine Besylate (Norvasc Tab*) 10 mg PO DAILY [facility] Last Admin: 07/07/19 08:56 Dose: 10 mg Benzocaine (Orajel 10%*) 1 applic TOPICAL Q2H PRN PRN Reason: NOT SPECIFIED Last Admin: 07/07/19 10:10 Dose: 1 applic Clindamycin HCl (Cleocin Cap*) 300 mg PO TID [facility] Last Admin: 07/07/19 08:56 Dose: 300 mg Clonidine HCl (Upsnlwin-Str-0 0.2 Mg Patch*) 0.2 mg TRANSDERM Q7D [facility] Last Admin: 07/07/19 08:58 Dose: 0.2 mg Fluconazole (Diflucan 100 Mg Tab*) 400 mg PO DAILY [facility] Last Admin: 07/07/19 08:55 Dose: 400 mg Cefepime HCl (Maxipime 2 Gm In Dextrose Duplex (*)) 2 gm in 50 mls @ 100 mls/ hr IV Q8H [facility] Last Admin: 07/07/19 04:42 Dose: 100 mls/hr Loperamide HCl (Imodium Cap*) 2 mg PO Q4H PRN PRN Reason: DIARRHEA Last Admin: 07/06/19 22:59 Dose: 2 mg Losartan Potassium (Cozaar Tab*) 100 mg PO DAILY [facility] Last Admin: 07/07/19 08:55 Dose: 100 mg Metoprolol Tartrate (Lopressor Tab*) 25 mg PO BID [facility] Last Admin: 07/07/19 08:57 Dose: 25 mg Prochlorperazine (Compazine Tab*) 10 mg PO Q8H PRN PRN Reason: NAUSEA Tamsulosin HCl (Flomax Cap*) 0.4 mg PO DAILY [facility] Last Admin: 07/07/19 08:56 Dose: 0.4 mg Assessment: 48 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 Plan: 1. Neutropenic fever with strep midis bacteremia - cont Cefepime and clindamycin per ID recommendations, will transition to augmentin once no longer neutropenic and on discharge - will need tooth extraction prior to next cycle of chemotherapy, once platelets higher - plan to exchange PICC line at some point prior to dc (once ANC >1000, will need platelets for this) 2. AML/ALL - induction with 7+3 at [facility] now receiving HiDAC consolidation, C2 06/21 with Neulasta support 3. Pancytopenia - transfuse for Hgb <7.5 g/dl or plts <10K, today 4. DVT prophylaxis - no chemical prophlaxis due to thrombocytopenia 5.hypokalemia: replete IV today Dispo: cont inpatient care until ANC >1000 and blood cultures cleared
[2019-07-07] MEDS: KCL 20 MEQ/100 ML IVPREMIX* 20 MEQ/100 ML BAG IV SCH ×3 (10:56→17:23)
--- NOTE | 2019-07-07 10:56 | PN ---
Progress Note - Progress Note Date of Service: 07/07/19 SOAP: Subjective: CC: fever HPI: 48 year old man with recent chemotherapy for leukemia, now with neutropenia , fever, right lower jaw pain. Jaw pain with chewing, no fever overnight. No rash or diarrhea. Objective: Vital Signs Temp 37.1 C 07/07/19 09:14 Pulse 89 07/07/19 09:14 Resp 20 07/07/19 08:00 BP 133/78 07/07/19 09:14 Pulse Ox 97 07/07/19 09:14 Intake & Output 07/06/19 07/07/19 07/07/19 18:59 06:59 18:59 Intake Total 1051 150 300 Balance 1051 150 300 Intake: IV Fluids 421 30 NS (0.9%) 421 30 IVPB 60 120 ABX - CEFEPIME 60 120 Oral 570 0 300 Other: # Voids 2 Gen:awake, no distress HEENT: no thrush; right mandible tender, gingiva erythematous, no lucero discoloration Heart:RRR no murmur Lungs:CTA BL Abd:+BS NTND soft Skin: no rash MSK: no joint synovitis Laboratory Results - last 24 hr 07/05/19 07/07/19 07/07/19 Unknown 05:15 05:15 WBC 1.2 L RBC 2.15 L Hgb 6.6 L Hct 18 L MCV 85 MCH 31 MCHC 36 RDW 15 Plt Count 11 L MPV 8.0 Neut % (Auto) 58.9 Lymph % (Auto) 33.2 [place] % (Auto) 6.4 Eos % (Auto) 0.4 Baso % (Auto) 1.1 Absolute Neuts (auto) 0.7 L Absolute Lymphs (auto) 0.4 L Absolute Monos (auto) 0.1 Absolute Eos (auto) 0.0 Absolute Basos (auto) 0.0 Absolute Nucleated RBC 0.0 Immature Gran % 19.0 H Neutrophils % 35.0 Band Neutrophils % 13.0 H Lymphocytes % 30.0 Reactive Lymphs % 8.0 H Monocytes % 8.0 Metamyelocytes % 3.0 H Myelocytes % 3.0 H Nucleated RBC % 0.1 Normal RBC Morphology Normal Hem Pathologist Commnt Sodium 141 Potassium 3.3 L Chloride 106 Carbon Dioxide 26 Anion Gap 9 BUN 16 Creatinine 0.91 Est GFR ( Amer) 106.7 Est GFR (Non-Af Amer) 88.2 BUN/Creatinine Ratio 17.6 Glucose 120 H Calcium 9.4 Magnesium 1.8 L Total Bilirubin 1.30 H AST 14 ALT 22 Alkaline Phosphatase 82 Total Protein 6.6 Albumin 3.8 Globulin 2.8 Albumin/Globulin Ratio 1.4 Crossmatch See Detail 07/07/19 05:15 WBC RBC Hgb Hct MCV MCH MCHC RDW Plt Count MPV Neut % (Auto) Lymph % (Auto) [place] % (Auto) Eos % (Auto) Baso % (Auto) Absolute Neuts (auto) Absolute Lymphs (auto) Absolute Monos (auto) Absolute Eos (auto) Absolute Basos (auto) Absolute Nucleated RBC Immature Gran % Neutrophils % Band Neutrophils % Lymphocytes % Reactive Lymphs % Monocytes % Metamyelocytes % Myelocytes % Nucleated RBC % Normal RBC Morphology Hem Pathologist Commnt Sodium Potassium Chloride Carbon Dioxide Anion Gap BUN Creatinine Est GFR ( Amer) Est GFR (Non-Af Amer) BUN/Creatinine Ratio Glucose Calcium Magnesium Total Bilirubin AST ALT Alkaline Phosphatase Total Protein Albumin Globulin Albumin/Globulin Ratio Crossmatch See Detail Assessment: 1. neutropenic fever, resolved 2. right mandibular molar decay and gum infection without soft tissue abscess on CT 3. AML treated with induction and consolidation chemotherapy 4. obesity Plan: 1. continue cefepime 2 gm IV Q8hrs, clindamycin 600 mg IV Q8hrs; can change to augmentin 500 mg by mouth twice daily until tooth extraction 2. Echange PICC when able Discussed with Dr Flores 25 minutes floor time >50% face to face in discussion of plans above before restarting chemotherapy
[2019-07-08] MEDS: Cefepime 2 GM in Dextrose(*) 2 GM/50 ML BAG IV SCH ×2 (05:18→14:12)
[2019-07-08 05:51] LABS: Hematocrit 21 % (42-52); Hemoglobin 7.5 g/dL (14.0-18.0); Mean Corpuscular HGB Conc 37 g/dL (31-36); Mean Corpuscular Hemoglobin 31 pg (27-31); Mean Corpuscular Volume 85 fL (80-94); Red Blood Count 2.41 10^6 /uL (4.18-5.48); Red Cell Distribution Width 15 % (10-15)
[2019-07-08 05:55] LABS: BUN/Creatinine Ratio 14.3 (8-20); Calcium 9.9 mg/dL (8.6-10.3); EGFR African American 106.7 (>60); EGFR Non-African American 88.2 (>60); Magnesium 1.7 mg/dL (1.9-2.7); Potassium 3.6 mmol/L (3.5-5.0)
[2019-07-08 06:48] LABS: ABS Lymphocytes 0.5 10^3/ul (1.0-4.8); ABS Monocytes 0.4 10^3/ul (0-0.8); Eosinophil % 0.2 %; Lymphocyte % 11.7 %; Mean Platelet Volume 9.1 fL (7.4-10.4); Nucleated Red Blood Cells % 0.2; Platelet Count 9 10^3/uL (150-450)
[2019-07-08] MEDS: Fluconazole 100 MG TAB* TAB PO SCH (09:16)
[2019-07-08] MEDS: Metoprolol Tartrate TAB* 50 mg PO SCH (09:17)
[2019-07-08] MEDS: Tamsulosin CAP* 0.4 MG PO SCH (09:17)
[2019-07-08] MEDS: Clindamycin CAP* 150 MG PO SCH ×2 (09:18→14:11)
[2019-07-08] MEDS: Acyclovir* 400 MG TAB PO SCH (09:18)
[2019-07-08] MEDS: amLODIPine TAB* 5 MG PO SCH (09:18)
[2019-07-08] MEDS: Losartan TAB* 25 MG PO SCH (10:15)
--- NOTE | 2019-07-08 12:32 | DS ---
- Discharge Summary Admission Date: 07/04/19 Discharge Date: 07/08/19 Discharge Diagnosis: 1. Febrile Neutropenia secondary to strep bacteremia felt related to right lower molar infection: resolved with IV abx. and will need extraction in near future 2. Pancytopenia secondary to chemotherapy: expect improvement over next week, continue frequent lab draws 3. AML: s/p C2 HIDAC consolidation 06/21, managed by Dr. Washington @ [facility] Discharge Medications: Medication Instructions Recorded Confirmed Type Metoprolol Tartrate TAB* 25 mg PO BID 06/03/13 07/04/19 History [Lopressor TAB*] amLODIPine TAB* [Norvasc 5 mg TAB*] 10 mg PO DAILY 06/03/13 07/04/19 History cloNIDine 0.2 MG PATCH* 0.2 mg TRANSDERM Q7D 06/03/13 07/04/19 History [Nbkqckpt-Utb-3 0.2 mg Patch*] Losartan TAB* [Cozaar TAB*] 100 mg PO DAILY 01/02/18 07/04/19 History Diclofenac 1% GEL (NF) [Voltaren 1 applic TOPICAL SEE INSTRUCTIONS 04/09/19 History 1% GEL (NF)] Acyclovir [Zovirax] 400 mg PO BID 06/06/19 07/04/19 History Tamsulosin HCl 0.4 mg PO DAILY 06/06/19 07/04/19 History Fluconazole [Fluconazole 200 mg 400 mg PO DAILY 07/04/19 07/04/19 History tab] Prochlorperazine TAB* [Compazine 10 mg PO Q8H PRN 07/04/19 07/04/19 History Tab*] traMADol TAB* [Ultram*] 50 - 100 mg PO Q8HR 07/04/19 07/04/19 History Amoxicillin/Clavulanate TAB* 500 mg PO BID #30 tab 07/08/19 Rx [Augmentin TAB 500 mg*] Loperamide CAP* [Imodium CAP*] 2 mg PO Q4H PRN cap 07/08/19 Rx Disposition: Home Condition: Good Activity: As tolerated Diet: As tolerated Hospital Course: Please see admission note for full H&P, however, briefly, Mr. Quigley is well known to our service due to his unfortunate diagnosis of AML in March of this year. He is currently receiving consolidation with HIDAC @ [facility] in [place], [place] with Dr. Gilbert Washington now status post C2 06/21/19. Mr. Quigley has been managed between cycles locally with transfusions as needed. He has been covered empirically with Acyclovir, Fluconazole, and Ciprofloxacin. Unfortunately, Mr. Quigley presented to the ER on 07/04 around noon with a fever of 100.5 that developed at home, with new right jaw/cheek pain and swelling. In the ER his temperature was 99.3 with BP 103/70 and HR 106. He was not hypoxic. His total WBCs was 200 with plt. 15 and hmg 7.5, his lactic acid was 2, his bilirubin was 2.8, and his Cr was normal. A chest x-ray was negative for acute process. Blood cultures and UA were obtained. He was admitted for IV Cefepime 2 gm q8hrs and IV fluids. Dr. Millan of [place] was consulted on 07/05 with recommendation to add Clindamycin and obtain CT imaging to evaluate for abscess. This was negative for abscess. Blood cultures the following day revealed 1 of 4 bottles positive for strep mitis/strep oralis, lawrence-sensitive. Mr. Werner last fever was 100.6 on the evening of 07/05. Repeat blood cultures on 07/05 have cleared. His ANC is 3000 today and he is very anxious to go home. His bilirubin is normalizing, now 1.3, and his hmg is stable @ 7.5. His plt. are 9 and he will receive a unit of plt. He will be discharged home on oral Augmentin 500 mg PO BID to continue until an extraction of his right lower molar can be completed. His right upper arm PICC will be discontinued due to bacteremia on admission and we will manage his outpatient labs peripherally over the next week. Mr. Quigley received 2 units of PRBCs on 07/05 and 1 unit on 07/07. He received a unit of plt. On 07/05 and a unit today, 07/08. He will return to our clinic tomorrow, 07/09 for repeat labs and transfusions if plt. <10 or hmg <7.5. Plan of care was reviewed with his primary team @ [facility] who are in agreement and will contact the patient next week to set up an extraction. He is due for Cycle 3 on 11/11 and will likely have a new PICC placed at that time. Mr. Quigley will follow-up in our clinic after this cycle as well.
[2019-07-08] MEDS: Acetaminophen TAB* 325 MG PO PRN (12:38)
[2019-07-08 15:45] VITALS: BP 125/84
[2019-07-08 16:38] LABS: Mean Platelet Volume 7.3 fL (7.4-10.4); Platelet Count 31 10^3/uL (150-450)
== END 2019-07-08 17:25 | disposition home or self-care (01) | DRG 157 ==
LOC: ED 12:01 → MED 14:26
PROVIDERS: ADMIT Internal Medicine; ATTEND Internal Medicine Hematology & Oncology
PROC: 30233R1 Transfusion of Nonautologous Platelets into Peripheral Vein, Percutaneous Approach (ICD-10-PCS; principal; 2019-07-05)
PROC: 30233N1 Transfusion of Nonautologous Red Blood Cells into Peripheral Vein, Percutaneous Approach (ICD-10-PCS; 2019-07-05)
DX: K04.7 Periapical abscess without sinus (principal); D61.810 Antineoplastic chemotherapy induced pancytopenia; C92.00 Acute myeloblastic leukemia, not having achieved remission; R78.81 Bacteremia; T45.1X5A Adverse effect of antineoplastic and immunosuppressive drugs, initial encounter; D70.1 Agranulocytosis secondary to cancer chemotherapy; K02.9 Dental caries, unspecified; E87.6 Hypokalemia; E78.00 Pure hypercholesterolemia, unspecified; K76.89 Other specified diseases of liver; R50.81 Fever presenting with conditions classified elsewhere; B95.4 Other streptococcus as the cause of diseases classified elsewhere; I10 Essential (primary) hypertension; G89.29 Other chronic pain; M54.2 Cervicalgia; G47.33 Obstructive sleep apnea (adult) (pediatric); E66.9 Obesity, unspecified; E78.5 Hyperlipidemia, unspecified; K22.2 Esophageal obstruction; Z88.8 Allergy status to other drugs, medicaments and biological substances; Y92.9 Unspecified place or not applicable; Z86.73 Personal history of transient ischemic attack (TIA), and cerebral infarction without residual deficits; Z68.35 Body mass index [BMI] 35.0-35.9, adult; Z87.891 Personal history of nicotine dependence
CPT/HCPCS: 36415; 70487; 71045; 80048; 80053; 81003; 81015; 83605; 83735; 85014; 85018; 85025; 85049; 85060; 85610; 85730; 86850; 86900; 86901; 86922; 87040; 87077; 87150; 87186; 87205; 94660; 99232; 99233; 99239; 99284; A9270-GY; J0692; J2997; J3480; P9035; P9040; Q9967

== ENCOUNTER 2019-08-09 16:32 | Emergency (ER) | payer OTHER ==
--- NOTE | 2019-08-09 17:38 | ED ---
Throat Pain/Nasal Congestion - HPI Summary HPI Summary: Patient with history of leukemia presents for nosebleed 2 hours, weakness and lightheadedness. Nosebleed started after blowing his nose today. Denies trauma. Chronic low platelets and hemoglobin. Received 2 units of blood and one unit of platelets 3 days ago[address] Dr. Robert canseco. Received chemotherapy in [place]. Last chemotherapy treatment 9 days ago. Medical history is leukemia, HTN, CVA 2011 - History of Current Complaint Chief Complaint: EDEpistaxis Time Seen by Provider: 08/09/19 17:36 Hx Obtained From: Patient Onset/Duration: Sudden Onset Severity: Moderate Associated Signs And Symptoms: Positive: Negative Cough: None - Allergies/Home Medications Allergies/Adverse Reactions: Allergies Allergy/AdvReac Type Severity Reaction Status Date / Time menthol [From BenGay] Allergy Blisters Verified 08/09/19 16:37 methyl salicylate Allergy Blisters Verified 08/09/19 16:37 [From BenG] PMH/Surg Hx/FS Hx/Imm Hx Endocrine/Hematology History: Reports: Hx Unexplained Bleeding - hemorrhagic stroke Denies: Hx Anticoagulant Therapy, Hx Diabetes Cardiovascular History: Reports: Hx Angina, Hx Hypercholesterolemia, Hx Hypertension - controlled on meds Denies: Hx Aneurysm, Hx Congestive Heart Failure, Hx Coronary Artery Disease , Hx Myocardial Infarction, Hx Pacemaker/ICD, Hx Valvular Heart Disease Respiratory History: Reports: Hx Sleep Apnea - CPAP Denies: Hx Asthma, Hx Chronic Obstructive Pulmonary Disease (COPD) GI History: Reports: Hx Gall Bladder Disease - s/p cholecystectomy, Other GI Disorders - appi Denies: Hx Cirrhosis, Hx Crohn's Disease, Hx Diverticulosis, Hx Gastrointestinal Bleed, Hx Hiatal Hernia, Hx Irritable Bowel, Hx Obstructive Bowel, Hx Ulcer History: Denies: Hx Benign Prostatic Hyperplasia, Hx Chronic Renal Failure, Hx Kidney Infection, Hx Kidney Stones, Hx Renal Disease Musculoskeletal History: Reports: Hx Back Problems - 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, Hx Orthopedic Injury, Other Musculoskeletal History - degenerative disk disease Sensory History: Reports: Hx Contacts or Glasses - Reading Denies: Hx Hearing Aid Opthamlomology History: Reports: Hx Contacts or Glasses - Reading Neurological History: Reports: Hx CVA - hemorrhagic stroke Denies: Hx Dementia, Hx Developmental Delay Psychiatric History: Denies: Hx Panic Disorder - Cancer History Cancer Type, 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 Hx Chemotherapy: Yes - Surgical History Surgery Procedure, Year, and Place: TONSILS, TOE NAIL REMOVED Hx Anesthesia Reactions: No Infectious Disease History: No Infectious Disease History: Denies: Hx Clostridium Difficile, Hx Hepatitis, Hx Human Immunodeficiency Virus (HIV), Hx Shingles, Hx Tuberculosis, Traveled Outside the [place] in Last 30 Days - Family History Known Family History: Positive: None Negative: Cardiac Disease, Hypertension, Diabetes - Social History Alcohol Use: None Hx Substance Use: No Substance Use Type: Reports: None Hx Tobacco Use: Yes Smoking Status (MU): Former Smoker Type: Cigarettes Amount Used/How Often: 1PPD Review of Systems Constitutional: Negative Eyes: Negative Positive: Epistaxis Cardiovascular: Negative Respiratory: Negative Gastrointestinal: Negative Genitourinary: Negative Musculoskeletal: Negative Skin: Negative Positive: Weakness Psychological: Normal All Other Systems Reviewed And Are Negative: Yes Physical Exam Triage Information Reviewed: Yes Vital Signs On Initial Exam: Initial Vitals Temp Pulse Resp BP Pulse Ox 96.3 F 116 19 117/85 100 08/09/19 16:34 08/09/19 16:34 08/09/19 16:34 08/09/19 16:34 08/09/19 16:34 Vital Signs Reviewed: Yes Appearance: Positive: Well-Appearing Skin: Positive: Warm Head/Face: Positive: Normal Head/Face Inspection Eyes: Positive: Normal ENT: Positive: Normal ENT inspection, Other - Mild flow of bright red blood from left nostril. No evidence of active bleeding site visualized. Otherwise normal nasal exam. Neck: Positive: Supple Respiratory/Lung Sounds: Positive: Clear to Auscultation Cardiovascular: Positive: Normal Abdomen Description: Positive: Nontender Musculoskeletal: Positive: Normal Neurological: Positive: Normal Psychiatric: Positive: Normal AVPU Assessment: Alert - Lan Coma Scale Best Eye Response: 4 - Spontaneous Best Motor Response: 6 - Obeys Commands Best Verbal Response: 5 - Oriented Coma Scale Total: 15 Procedures - Sedation Patient Received Moderate/Deep Sedation with Procedure: No Diagnostics - Vital Signs Vital Signs Temp Pulse Resp BP Pulse Ox 08/09/19 16:34 96.3 F 116 19 117/85 100 - Laboratory Result Diagrams: 08/09/19 18:04 08/09/19 18:04 Lab Statement: Any lab studies that have been ordered have been reviewed, and results considered in the medical decision making process. EENT Course/Dx - Course Course Of Treatment: Patient with history of leukemia presents for nosebleed 2 hours, weakness and lightheadedness. Nosebleed started after blowing his nose today. Denies trauma. Chronic low platelets and hemoglobin. Received 2 units of blood and one unit of platelets 3 days ago. Followed by Dr. Jones locally. Received chemotherapy in [place]. Last chemotherapy treatment 9 days ago. Medical history is leukemia, HTN, CVA 2011. Vital signs within normal limits. Platelets 11. Hemoglobin 8.2. Labs otherwise patient baseline. [facility] patient can be discharged if platelets are greater than 10 and hemoglobin greater than 8. Bleeding controlled here in the ED. Discharged per [facility] instructions. Patient has appointment which [facility] tomorrow. Patient will return to the ED in the meantime for any new or concerning symptoms. per call to [facility] by [facility] - Diagnoses Provider Diagnoses: Epistaxis, AML (acute myeloid leukemia) Discharge ED - Sign-Out/Discharge Documenting (check all that apply): Patient Departure - Discharge Plan Condition: Stable Disposition: HOME Patient Education Materials: Nosebleed (ED) Referrals: Cari Og [Primary Care Provider] - Additional Instructions: Return to the ED for any new or worsening symptoms. Follow-up with your oncologist tomorrow for further evaluation of low platelets and hemoglobin. - Billing Disposition and Condition Condition: STABLE Disposition: Home
[2019-08-09 18:26] LABS: Hematocrit 23 % (42-52); Hemoglobin 8.2 g/dL (14.0-18.0); Mean Corpuscular HGB Conc 36 g/dL (31-36); Mean Corpuscular Hemoglobin 32 pg (27-31); Mean Corpuscular Volume 87 fL (80-94); Mean Platelet Volume 10.3 fL (7.4-10.4); Red Blood Count 2.59 10^6 /uL (4.18-5.48); Red Cell Distribution Width 18 % (10-15); White Blood Count 0.4 10^3/uL (3.5-10.8)
[2019-08-09 18:27] LABS: Platelet Count 11 10^3/uL (150-450)
[2019-08-09 18:31] LABS: ABS Lymphocytes 0.2 10^3/ul (1.0-4.8); Eosinophil % 0.8 %; Lymphocyte % 52.9 %
[2019-08-09 18:33] LABS: ABS Neutrophils 0.2 10^3/ul (1.5-7.7)
[2019-08-09 18:37] LABS: Albumin 4.4 g/dL (3.2-5.2); Albumin/Globulin Ratio 1.6 (1-3); C Reactive Protein 136.4 mg/L (<8.01); Calcium 10.1 mg/dL (8.6-10.3); EGFR African American 95.7 (>60); EGFR Non-African American 79.1 (>60); Globulin 2.8 g/dL (2-4); Potassium 3.5 mmol/L (3.5-5.0); Total Bilirubin 2.3 mg/dL (0.2-1.0); Total Protein 7.2 g/dL (6.4-8.9)
[2019-08-09 19:47] VITALS: BP 113/73
== END 2019-08-09 19:39 | disposition home or self-care (01) ==
LOC: ED 16:32
DX: R04.0 Epistaxis (principal); C92.00 Acute myeloblastic leukemia, not having achieved remission; I10 Essential (primary) hypertension; Z86.73 Personal history of transient ischemic attack (TIA), and cerebral infarction without residual deficits; Z88.8 Allergy status to other drugs, medicaments and biological substances; Z87.891 Personal history of nicotine dependence
CPT/HCPCS: 36415; 80053; 85025; 86140; 99282

== ENCOUNTER 2019-08-11 20:47 | Observation (INO) | payer OTHER ==
[2019-08-11] MEDS ORDERED: Tranexamic Acid 1,000 MG/10 ML 1,000 MG in NS 0.9% 50 ML* 50 ML IV ONE (21:08)
--- NOTE | 2019-08-11 21:13 | ED ---
Upper Extremity Pain - HPI Summary HPI Summary: 48 year old M with a history of leukemia in [place] presenting to [facility] accompanied by w complaints of bleeding through right PICC line since 20: 05. Pt has a low platelet count and presented to [facility] 2 days ago for continual epistaxis. Patient states that his platelets were 11 yesterday, he had a transfusion of platelets and packed red blood cells. Pt denies fever. No trauma to site. PICC placed in mid July. - History of Current Complaint Chief Complaint: EDBleedingDisorder Stated Complaint: BLEEDING FROM PIC LINE PER PT Time Seen by Provider: 08/11/19 21:05 Hx Obtained From: Patient Mechanism Of Injury: Unknown Onset/Duration: Started Minutes Ago Timing: Constant Severity Initially: Moderate Severity Currently: Moderate Pain Location: Arm Aggravating Factor(s): Nothing Alleviating Factor(s): Nothing Associated Signs & Symptoms: Negative: Fever - Allergies/Home Medications Allergies/Adverse Reactions: Allergies Allergy/AdvReac Type Severity Reaction Status Date / Time menthol [From BenGay] Allergy Blisters Verified 08/09/19 16:37 methyl salicylate Allergy Blisters Verified 08/09/19 16:37 [From BenGay] PMH/Surg Hx/FS Hx/Imm Hx Endocrine/Hematology History: Reports: Hx Unexplained Bleeding - hemorrhagic stroke Denies: Hx Anticoagulant Therapy, Hx Diabetes Cardiovascular History: Reports: Hx Angina, Hx Hypercholesterolemia, Hx Hypertension - controlled on meds Denies: Hx Aneurysm, Hx Congestive Heart Failure, Hx Coronary Artery Disease , Hx Myocardial Infarction, Hx Pacemaker/ICD, Hx Valvular Heart Disease Respiratory History: Reports: Hx Sleep Apnea - CPAP Denies: Hx Asthma, Hx Chronic Obstructive Pulmonary Disease (COPD) GI History: Reports: Hx Gall Bladder Disease - s/p cholecystectomy, Other GI Disorders - appi Denies: Hx Cirrhosis, Hx Crohn's Disease, Hx Diverticulosis, Hx Gastrointestinal Bleed, Hx Hiatal Hernia, Hx Irritable Bowel, Hx Obstructive Bowel, Hx Ulcer History: Denies: Hx Benign Prostatic Hyperplasia, Hx Chronic Renal Failure, Hx Kidney Infection, Hx Kidney Stones, Hx Renal Disease Musculoskeletal History: Reports: Hx Back Problems - 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, Hx Orthopedic Injury, Other Musculoskeletal History - degenerative disk disease Sensory History: Reports: Hx Contacts or Glasses - Reading Denies: Hx Hearing Aid Opthamlomology History: Reports: Hx Contacts or Glasses - Reading Neurological History: Reports: Hx CVA - hemorrhagic stroke Denies: Hx Dementia, Hx Developmental Delay Psychiatric History: Denies: Hx Panic Disorder - Cancer History Cancer Type, 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 Hx Chemotherapy: Yes - Surgical History Surgery Procedure, Year, and Place: TONSILS, TOE NAIL REMOVED Hx Anesthesia Reactions: No Infectious Disease History: No Infectious Disease History: Denies: Hx Clostridium Difficile, Hx Hepatitis, Hx Human Immunodeficiency Virus (HIV), Hx Shingles, Hx Tuberculosis, Traveled Outside the [place] in Last 30 Days - Family History Known Family History: Negative: Cardiac Disease, Hypertension, Diabetes - Social History Alcohol Use: None Hx Substance Use: No Substance Use Type: Reports: None Hx Tobacco Use: Yes Smoking Status (MU): Former Smoker Type: Cigarettes Amount Used/How Often: 1PPD Review of Systems Negative: Fever Positive: Other - Bleed from PICC line on right arm All Other Systems Reviewed And Are Negative: Yes Physical Exam - Summary Physical Exam Summary: Constitutional: Well-developed, Well-nourished, Alert. (-) Distressed Skin: Warm, Dry. Pale. HENT: Normocephalic; Atraumatic Eyes: Conjunctiva normal Neck: Musculoskeletal ROM normal neck. (-) JVD, (-) Stridor, (-) Nuchal rigidity Cardio: Rhythm regular, rate normal, Heart sounds normal; Intact distal pulses; Radial pulses are 2+ and symmetric. (-) Murmur Pulmonary/Chest wall: Effort normal. (-) Respiratory distress, (-) Wheezes, (-) Rales Abd: Soft, (-) tenderness, (-) Distension, (-) Guarding, (-) Rebound Musculoskeletal: (-) Edema. R arm PICC line w/ large clot over the site. Scant oozing from PICC site. Lymph: (-) Cervical adenopathy Neuro: Alert, Oriented x3 Psych: Mood and affect Normal Triage Information Reviewed: Yes Vital Signs On Initial Exam: Initial Vitals Temp Pulse Resp BP Pulse Ox 98.0 F 97 18 127/81 98 08/11/19 20:50 08/11/19 20:50 08/11/19 20:50 08/11/19 20:50 08/11/19 20:50 Vital Signs Reviewed: Yes Procedures - Sedation Patient Received Moderate/Deep Sedation with Procedure: No Diagnostics - Vital Signs Vital Signs Temp Pulse Resp BP Pulse Ox 08/11/19 20:50 98.0 F 97 18 127/81 98 - Laboratory Result Diagrams: 08/11/19 21:14 08/11/19 21:14 Lab Statement: Any lab studies that have been ordered have been reviewed, and results considered in the medical decision making process. Re-Evaluation - Re-Evaluation First Eval Re-Evaluation Time: 22:45 Comment: PICC line dressing removed, no bleeding noted. Patient's 6 it was cleaned, new Biopatch dressing applied. Course/Dx - Course Course Of Treatment: 48 -year-old male with a history of leukemia and thermostatic chele presents with bleeding from right arm PICC site. - Physical exam of the well-appearing male, slightly oozing from the right PICC. Dressing was removed, 500 mg of topical TXA placed and dressing applied. - platelets 19 , discussed with oncology who states that patient is not actively oozing, okay to discharge. Will reevaluate. - Diagnoses Provider Diagnoses: Thrombocytopenia, Bleeding from PICC line Discharge ED - Sign-Out/Discharge Documenting (check all that apply): Sign-Out Patient Signing out patient TO: Johnathon Post - Discharge Plan Condition: Stable Disposition: HOME Patient Education Materials: Thrombocytopenia (ED) Referrals: Cari Og [Primary Care Provider] - Additional Instructions: Please return for continued bleeding from site. Your platelets were 19 today. It was a pleasure taking care of you today. - Billing Disposition and Condition Condition: STABLE Disposition: Home - Attestation Statements Document Initiated by Mishaibe: Yes Documenting Scribe: Clarisse Painter Provider For Whom Violeta is Documenting (Include Credential): Jerod Carter MD Scribe Attestation: I, Clarisse Painter, scribed for Jerod Carter MD on 12/25 at 4560. Scribe Documentation Reviewed: Yes Provider Attestation: The documentation as recorded by the scribe, Clarisse Painter accurately reflects the service I personally performed and the decisions made by me, Jerod Carter MD Status of Scribe Document: Viewed Consult Consult: 2130 - I spoke with Luis Yeung about the pt's present condition who recommends re-evaluating the pt in an hour. If he is still bleeding from the site, he will need a platelet transfusion. If there is no bleeding, he can be d/ c'ed.
[2019-08-11 21:29] LABS: Hematocrit 24 % (42-52); Hemoglobin 8.5 g/dL (14.0-18.0); Mean Corpuscular HGB Conc 36 g/dL (31-36); Mean Corpuscular Hemoglobin 31 pg (27-31); Mean Corpuscular Volume 87 fL (80-94); Mean Platelet Volume 8.4 fL (7.4-10.4); Red Blood Count 2.71 10^6 /uL (4.18-5.48); Red Cell Distribution Width 18 % (10-15); White Blood Count 9.2 10^3/uL (3.5-10.8)
[2019-08-11 21:30] LABS: Platelet Count 19 10^3/uL (150-450)
[2019-08-11 21:55] LABS: Albumin 4.4 g/dL (3.2-5.2); Albumin/Globulin Ratio 1.6 (1-3); BUN/Creatinine Ratio 13.2 (8-20); Calcium 10.1 mg/dL (8.6-10.3); EGFR African American 62.8 (>60); EGFR Non-African American 51.9 (>60); Globulin 2.7 g/dL (2-4); Potassium 3.5 mmol/L (3.5-5.0); Total Protein 7.1 g/dL (6.4-8.9)
[2019-08-11 22:19] LABS: ABS Basophils 0.1 10^3/ul (0-0.2); ABS Monocytes 0.5 10^3/ul (0-0.8); ABS Neutrophils 7.6 10^3/ul (1.5-7.7); Eosinophil % 0.2 %; Lymphocyte % 11.1 %; Microcytosis 2+; Polychromasia 1+
--- NOTE | 2019-08-11 22:47 | ED ---
Progress - Progress Note Progress Note: Patient is a sign-out at 22:00 on 08/11/[address] Jerod Carter MD to Dr. Johnathon Post MD at shift change, pending further workup and disposition. At 23:53, Dr. Che agrees to admit the patient to [facility] with a diagnosis of bleeding from PICC line and thrombocytopenia. Re-Evaluation - Re-Evaluation First Eval Re-Evaluation Time: 22:45 Comment: PICC line dressing removed, no bleeding noted. Patient's 6 it was cleaned, new Biopatch dressing applied. Course/Dx - Course Course Of Treatment: Patient is a sign-out at 22:00 on 08/11/[address] Jerod Carter MD to Dr. Johnathon Post MD at shift change, pending further workup and disposition. At 23:53, Dr. Che agrees to admit the patient to [facility] with a diagnosis of bleeding from PICC line and thrombocytopenia. - Diagnoses Provider Diagnoses: Thrombocytopenia, Bleeding from PICC line - Provider Notifications Discussed Care Of Patient With: Ra Che - At 23:53, Dr. Che agrees to admit the patient to [facility] with a diagnosis of bleeding from PICC line and thrombocytopenia. Time Discussed With Above Provider: 23:53 Instructed by Provider To: Admit As Inpatient Discharge ED - Sign-Out/Discharge Documenting (check all that apply): Patient Departure - Admit - Discharge Plan Condition: Stable Disposition: ADMITTED TO [facility] - Billing Disposition and Condition Condition: STABLE Disposition: Admitted to [facility] - Attestation Statements Document Initiated by Violeta: Yes Documenting Scribe: Marjan Smith Provider For Whom Violeta is Documenting (Include Credential): Johnathon Post MD Scribe Attestation: Marjan Agarwal, scrpamelaed for Johnathon Post MD on 08/12/19 at 0616. Scribe Documentation Reviewed: Yes Provider Attestation: The documentation as recorded by the Marjan henson accurately reflects the service I personally performed and the decisions made by me, Johnathon Post MD Status of Scribe Document: Viewed
[2019-08-12] MEDS ORDERED: cloNIDine 0.2 MG PATCH* 0.2 MG/24 HR 7 DAY PATCH TRANSDERM SCH ×2 (03:00→07:30)
[2019-08-12] MEDS ORDERED: NS 0.9% 1000 ML** 1,000 ML IV SCH ×2 (03:00→03:14)
[2019-08-12] MEDS ORDERED: Acetaminophen TAB* 325 MG PO PRN (04:47)
--- NOTE | 2019-08-12 05:17 | HP ---
CC: Cari Og NP; Dr. Singh Song * ADMISSION HISTORY AND PHYSICAL: DATE OF ADMISSION: 08/12/19 PRIMARY CARE PHYSICIAN: Cari Og NP and he also sees Dr. Singh Song from Oncology. 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 Last chemo session was about 11 days ago via his right arm PICC line, which has been used for transfusing platelets and other blood products along with chemotherapy. On Friday evening, he noticed that he was bleeding via his PICC line site around 8 o' clock. He otherwise has had no fever, no chills. He does know that he has low platelets. The patient had dressing change on the PICC line, which was oozing very minimal amount of blood. He also had 500 mg of topical TXA placed along with dressing, and Oncology was consulted who initially recommended the patient to be reevaluated in an hour and if the bleeding still happens, the patient would need a platelet transfusion and an admission; however, if the bleeding stops, he could be discharged home. Even after now, Dr. Post noticed that the patient was having still oozing of blood from the PICC line site. He ordered a platelet transfusion and requested the hospitalist service to admit the patient for overnight observation and transfusion of platelets. The patient otherwise has no complaints. He was even initially getting ready to go home, but given the continuously bleeding, he agreed to stay for transfusion of platelets. PAST MEDICAL HISTORY: As mentioned: 1. Acute myeloblastic leukemia. 2. Hypertension. 3. Previous history of hemorrhagic stroke without any residual deficit. 4. Chronic neck pain. 5. Obstructive sleep apnea, on CPAP at home. 6. Obesity. 7. Dyslipidemia. 8. Esophageal stricture. 9. Nonalcoholic fatty liver disease. 10. Recent admission in June for neutropenic fever. PAST SURGICAL HISTORY: 1. He has had tracheostomy during his hemorrhagic stroke, which has since been reversed. 2. History of vasectomy. 3. Tonsillectomy. 4. Remote cholecystectomy. 5. Appendectomy. 6. Ventriculostomy. HOME MEDICATIONS: The patient is currently on: 1. Hydrochlorothiazide 25 mg oral daily. 2. Clonidine 0.2 mg transdermal every 7 days, usually new one placed on every Friday. 3. Amlodipine 10 mg oral daily. 4. Lopressor 25 mg oral twice a day. 5. Losartan 100 mg p.o. daily. 6. Fluconazole 200 mg oral daily; however, he finished the prescription. 7. Ciprofloxacin 500 mg oral twice a day, also finished the prescription. 8. Acyclovir 200 mg oral daily, still continues to take. ALLERGIES: The patient is allergic to BENGAY, which causes blisters. FAMILY HISTORY: Father of hemochromatosis at age 69 with an [place]. Mother at age 60 from accidental overdose of opiates after she had been prescribed opiates for hip fracture. SOCIAL HISTORY: The patient quit smoking in 2010 after smoking for 27 years. He rarely uses any alcohol. No other drug use. He is eligible to use marijuana vaping. He is retired and disabled . His , Lily, is the surrogate decision maker and the patient is otherwise full code. REVIEW OF SYSTEMS: A 14-point review of systems did not reveal any new information other than what is mentioned in the HPI. PHYSICAL EXAMINATION GENERAL: The patient is awake, alert, and oriented x3, did not appear to be in any acute respiratory distress. VITAL SIGNS: BP was noted to be 113/75, temperature 98.5, heart rate 69, respiration rate 16, saturating 98% on room air. HEAD AND NECK: Atraumatic, normocephalic. Bilateral pupils are reactive. Oral mucosa was moist. Neck: Supple. No jugular venous distention. LUNGS: Clear to auscultation bilaterally. No wheezing, rhonchi, or rales. HEART: S1, S2. Regular rate and rhythm. ABDOMEN: Soft, nontender, nondistended. EXTREMITIES: No cyanosis, clubbing, or edema. There was minimal oozing and bleeding from the right PICC line site, but no other petechiae was noted. DIAGNOSTIC STUDIES/LAB DATA: CBC was showing mild anemia with hemoglobin of 8.5, hematocrit 24. Platelet count was noted to be low at 19 when compared to his baseline from the day prior when it was still 18. Comprehensive metabolic panel was unremarkable except for elevated creatinine at 1.44. IMPRESSION: This is a 48-year-old gentleman here with bleeding of the PICC line site likely secondary to thrombocytopenia from his malignancies and chemotherapy and also noted to have acute kidney injury likely from hypovolemia from blood loss. ASSESSMENT AND PLAN: 1. Persistent bleeding via PICC line, likely secondary to thrombocytopenia. The patient to have transfusion of platelets. We will repeat labs in the morning. 2. Acute kidney injury, likely secondary to hypovolemia from bleeding. We will start the patient on IV hydration and repeat the creatinine with morning labs. 3. History of hypertension, restart home BP medication. 4. History of acute myeloblastic leukemia. Oncology to take over case. 5. History of hemorrhagic stroke, currently stable. 6. History of obstructive sleep apnea. Does not like the hospital CPAP. Would prefer his home CPAP machine if he would stay longer. 7. History of dyslipidemia. 8. DVT prophylaxis with sequential compression device. No anticoagulation in the light of his active bleeding. 9. Code status: Full code. [id number]/[facility] #: [id number] MTDD
[2019-08-12] MEDS ORDERED: Metoprolol Tartrate TAB* 25 MG PO SCH (09:00)
[2019-08-12] MEDS ORDERED: Acyclovir* 200 MG CAP PO SCH (09:00)
[2019-08-12] MEDS ORDERED: amLODIPine TAB* 5 MG PO SCH (09:00)
[2019-08-12] MEDS ORDERED: Hydrochlorothiazide TAB* 25 MG PO SCH (09:00)
[2019-08-12] MEDS: Losartan TAB* 25 MG PO SCH ×2 (09:55→09:59)
[2019-08-12 10:23] LABS: ABS Basophils 0.1 10^3/ul (0-0.2); ABS Lymphocytes 0.6 10^3/ul (1.0-4.8); ABS Monocytes 0.5 10^3/ul (0-0.8); ABS Neutrophils 5.8 10^3/ul (1.5-7.7); Eosinophil % 0.2 %; Hematocrit 20 % (42-52); Lymphocyte % 8.4 %; Mean Corpuscular HGB Conc 36 g/dL (31-36); Mean Corpuscular Hemoglobin 31 pg (27-31); Mean Corpuscular Volume 87 fL (80-94); Mean Platelet Volume 7.3 fL (7.4-10.4); Platelet Count 27 10^3/uL (150-450); Red Blood Count 2.24 10^6 /uL (4.18-5.48); Red Cell Distribution Width 17 % (10-15)
[2019-08-12 10:43] LABS: BUN/Creatinine Ratio 16.3 (8-20); Calcium 9.2 mg/dL (8.6-10.3); EGFR African American 91.5 (>60); EGFR Non-African American 75.6 (>60); Potassium 3.4 mmol/L (3.5-5.0)
[2019-08-12 12:32] VITALS: BP 120/69
--- NOTE | 2019-08-12 16:22 | DS ---
CC: Cari Og NP; Dr. Song * DISCHARGE SUMMARY: DATE OF ADMISSION: 08/12/19 DATE OF DISCHARGE: 08/12/19 PRIMARY CARE PROVIDER: Cari Og NP. PRIMARY ONCOLOGIST: Dr. Song. ATTENDING PHYSICIAN: Dr. Flores.* (DICTATED BY TYLER ENGEL) DISCHARGING PROVIDER: TYLER Engel. PRIMARY DISCHARGE DIAGNOSES: 1. Thrombocytopenia with uncontrolled bleeding at PICC line sites. 2. Acute myeloid leukemia. DISCHARGE MEDICATIONS: 1. Acyclovir 200 mg p.o. daily. 2. Amlodipine 10 mg p.o. daily. 3. Cipro 500 mg p.o. twice daily. 4. Clonidine patch 0.2 mg apply transdermally and changed every 7 days. 5. Fluconazole 200 mg p.o. daily. 6. Hydrochlorothiazide 12.5 mg p.o. daily. 7. Losartan 100 mg p.o. daily. 8. Lopressor 25 mg p.o. twice daily. HOSPITAL IMAGING: None. HOSPITAL COURSE: This is a 48-year-old gentleman with acute myeloid leukemia, receiving HIDAC chemotherapy through [place] with supportive care locally under the guidance of Dr. Song, who receives frequent blood product transfusions , who contacted the on-call Oncology service with concerns of bleeding at his PICC site. He had been soaking multiple bandages at home and was recommended to proceed to the emergency department. Platelet count when he reached the emergency department was 19,000 with a hemoglobin of 8.5. He had a large clot noted at the PICC site, which was cleaned and local cauterization was completed and initially successful, but began oozing again after approximately 30 minutes. Recommendation at that time was admission for an observation period and platelet transfusion. The patient tolerated platelet transfusion well without any adverse effects and a repeat platelet count was at 27,000 without additional evidence of bleeding at the PICC site. Dressing changed prior to discharge. Of note, the patient's hemoglobin was 8.5 in the emergency department and on repeat was 7.0 without additional bleeding. He did receive some volume expansion between the platelets and some IV fluids, so I suspect this is mostly dilutional, but still seems more than what would be expected from that volume. The patient is asymptomatic and has close followup with Oncology office tomorrow , so transfusion was deferred at the time of discharge. DISPOSITION AND FOLLOWUP PLAN: The patient is being discharged to home in stable condition where he lives with his . He will be seen in the Oncology Clinic on 08/13/19, a day following discharge, for repeat labs and anticipate blood transfusion at that time. TYLER ENGEL [id number]/[facility] #: [id number] SOTO
== END 2019-08-12 12:05 | disposition home or self-care (01) ==
LOC: ED 20:47 → MEDTELE 08-12 02:48
PROVIDERS: ADMIT Internal Medicine; ATTEND Internal Medicine Hematology & Oncology
DX: D69.6 Thrombocytopenia, unspecified (principal); C92.00 Acute myeloblastic leukemia, not having achieved remission; J95.01 Hemorrhage from tracheostomy stoma; Z79.899 Other long term (current) drug therapy; M54.2 Cervicalgia; I10 Essential (primary) hypertension; G47.33 Obstructive sleep apnea (adult) (pediatric); E66.9 Obesity, unspecified; E78.5 Hyperlipidemia, unspecified; K22.2 Esophageal obstruction; Z87.891 Personal history of nicotine dependence; E78.00 Pure hypercholesterolemia, unspecified
CPT/HCPCS: 36415; 80048; 80053; 85025; 85060; 99217; 99284; A9270-GY; G0378; P9035

== ENCOUNTER 2024-06-29 08:24 | Observation (INO) ==
[~2024-06-29 08:24] MED LIST: Lidocaine 2% PF 5 ML VIAL ONE; Metoclopramide 5 MG/ML VIAL (10 mg) IV PRN; Midazolam 2 mg/2 ml VIAL 1 mg/ml 2 ml VIAL (2 mg) ONE; NS 0.45% 1000 ml BAG 1,000 ML IV SCH; Naloxone 0.4 mg VIAL 0.4 mg/ml 1 ml VIAL IV PRN; Ondansetron 4 mg VIAL 2 MG/ML 2 ml VIAL IV PRN; Ondansetron 4 mg VIAL 2 MG/ML 2 ml VIAL ONE; Propofol 0 MG/0 ML BTL ONE; fentaNYL 250 mcg/5 ml 50 MCG/ML 5 ml VIAL (250 MCG) ONE
[2024-06-29] MEDS ORDERED: ceFAZolin 2 GM PREMIX 2 GM/50 ML BAG ONE ×2 (08:45→10:07)
[2024-06-29 09:06] LABS: Rapid COVID-19 Molecular Undetected (Undetected)
[2024-06-29] MEDS: Buffered Lidocaine 1% SYRIN 1 ml INTRADERM ONE (09:13)
[2024-06-29] MEDS ORDERED: ceFAZolin 1 GM in Dextrose 1 GM/50 ML BAG ONE (09:15)
[2024-06-29] MEDS ORDERED: Heparin 5000 UNITS/ML 1 mL VIAL ONE (10:07)
[2024-06-29] MEDS ORDERED: ROPIVACAINE 5 MG/ML 30 ML BTL (0.5%) ONE (10:37)
[2024-06-29] MEDS ORDERED: Midazolam 2 mg/2 ml VIAL 1 mg/ml 2 ml VIAL (2 mg) ONE (10:49)
[2024-06-29] MEDS ORDERED: Rocuronium 50 mg VIAL 10 mg/ml 5 ml VIAL (50 mg) ONE ×2 (11:02→12:04)
[2024-06-29] MEDS ORDERED: Propofol 10 MG/ML 20 ML BTL ONE (11:25)
[2024-06-29] MEDS ORDERED: fentaNYL 250 mcg/5 ml 50 MCG/ML 5 ml VIAL (250 MCG) ONE (11:25)
[2024-06-29] MEDS ORDERED: Dexamethasone IV 4 MG/ML VIAL 1 ml VIAL ONE ×2 (11:27→11:28)
[2024-06-29] MEDS ORDERED: Atropine 1 MG/ML INJ 1 ML VIAL ONE (11:54)
[2024-06-29] MEDS ORDERED: fentaNYL 100 mcg/2 ml 50 MCG/ML VIAL ONE ×2 (13:04→14:35)
[2024-06-29] MEDS ORDERED: HYDROmorphone 0.5 MG/0.5 ML SYRINGE ONE (13:04)
[2024-06-29] MEDS ORDERED: Lactulose 30 ml UDC PO PRN (13:51)
[2024-06-29] MEDS ORDERED: Ondansetron ODT 4 mg TAB 4 MG TAB PO PRN (13:51)
[2024-06-29] MEDS ORDERED: Magnesium Hydroxide LIQ 30 ML UDC PO PRN (13:51)
[2024-06-29] MEDS ORDERED: Calcium Carb (TUMS) 500 mg CHEW TAB PO PRN (13:51)
[2024-06-29] MEDS ORDERED: Morphine 2 MG/ML SYRINGE IV PRN (13:51)
[2024-06-29] MEDS ORDERED: Ondansetron 4 mg VIAL 2 MG/ML 2 ml VIAL IV PRN (13:51)
[2024-06-29] MEDS: fentaNYL 100 mcg/2 ml 50 MCG/ML VIAL IV PRN (14:36)
[2024-06-29] MEDS: Lactated Ringers 1000 ml BAG 1,000 ML IV SCH ×2 (17:02→17:03)
[2024-06-29] MEDS: Acetaminophen IV 1 GM/100ML 1,000 MG/100 ML BAG IV ONE (17:04)
[2024-06-29] MEDS: ceFAZolin *3* GM in NS PREMIX 3 GM/100 ML BAG IV SCH (19:37)
[2024-06-30] MEDS: Magnesium Hydroxide LIQ 30 ML UDC PO SCH (04:49)
[2024-06-30 07:10] LABS: Hematocrit 40.3 % (38-53); Hemoglobin 14.1 g/dL (13.2-16.3); Mean Platelet Volume 7.3 fL (7.5-11.2); Platelet Count 224 10^3/uL (150-450)
[2024-06-30 07:30] LABS: Creatinine, Serum 1.01 mg/dL (0.67-1.17); Potassium 3.9 mmol/L (3.5-5.0); eGFR CKD-EPI 87.8 (>60)
[2024-06-30] MEDS: Vitamin THERAPEUTIC TAB PO SCH (08:01)
[2024-06-30] MEDS: cloNIDine 0.2 MG PATCH 0.2 MG/24 HR 7 DAY PATCH TRANSDERM SCH (08:11)
[2024-06-30 09:44] VITALS: BP 141/86
== END 2024-06-30 13:27 | disposition home or self-care (01) ==
LOC: SSU 08:24 → OR 08:24
PROVIDERS: ADMIT Orthopaedic Surgery Adult Reconstructive Orthopaedic Surgery; ATTEND Orthopaedic Surgery Adult Reconstructive Orthopaedic Surgery